=== PATIENT | male | born 1985 | race Caucasian/White ===

== ENCOUNTER 2016-11-23 08:33 | Inpatient (IN) | payer BC ==
[2016-11-23] MEDS ORDERED: Sodium Chloride 0.9% 1,000 ML IV ONE ×2 (08:45)
[2016-11-23] MEDS ORDERED: Lactated Ringers 1,000 ML IV ONE ×2 (08:46→18:00)
[2016-11-23] MEDS ORDERED: HYDROmorphone 2 MG/ML SDV IVPUSH ONE ×3 (08:47→18:04)
[2016-11-23] MEDS ORDERED: Ondansetron 4 MG/2 ML SDV IVPUSH ONE ×2 (08:51→18:00)
[2016-11-23] MEDS ORDERED: Sodium Chloride 0.9% 1,000 ML IV SCH (10:45)
[2016-11-23] MEDS ORDERED: Ondansetron 4 MG/2 ML SDV IV PRN (11:14)
[2016-11-23] MEDS ORDERED: Sodium Chloride 0.9% 10 ML Syringe FLUSH PRN (11:21)
[2016-11-23] MEDS ORDERED: HYDROmorphone 2 MG/ML SDV ONE (11:25)
--- NOTE | 2016-11-23 12:09 | PCM.HP ---
H&P History of Present Illness - General Date of Service: 11/23/16 Admit Problem/Dx: Admission Diagnosis/Problem Admission Diagnosis/Problem Traumatic injury splenic rupture Source of Information: Patient, Old records History Limitations: Reports: No limitations - History of Present Illness Initial Comments - Free Text/Narative: 31 yo wm who presented to the ED this am with a complaint of LUQ abd pain. This was spontaneous. He does not recall any recent fall, auto accident or injury to the abdomen. On CT scan was noted to have an acute splenic rupture with a small amount of blood. He had been out drinking last pm so he does not recall any issues. He is being admitted as there are no beds available in [place] at either [place] or [facility]. He apparently was told in [place] [employer] that he had an enlarged spleen. Epic and [employer] were reviewed and there is no radiologic documentation of this. abdomen Pain Score (Numeric/FACES): 8 - Related Data Allergies/Adverse Reactions: Allergies Allergy/AdvReac Type Severity Reaction Status Date / Time No Known Allergies Allergy Verified 11/23/16 08:51 Home Medications: Home Meds NK [No Known Home Meds] 11/23/16 [History] Past Medical History - Past Health History Medical/Surgical History: Denies Medical/Surgical History Immunologic History: Reports: Other (see below) Other Immunologic History: spleen enlarged 2005- Unknown cause? - Past Surgical History Head Surgeries/Procedures: Reports: None Social & Family History - Family History Family Medical History: Noncontributory Respiratory: Reports: Other (see below) Other Respiratory Family Hisory: father- resp failures, mrsa pneum, tracheostomy in place, : Reports: Other (see below) Other Family History: father- endocrine disorders, Musculoskeletal: Reports: Other (see below) Other Musculoskeletal Family History: father- quadaparesis (muscle weakness), peripheral neuropathy Neurological: Reports: Neuropathy, peripheral, Other (see below) Other Neurological Family History: father- menningitis, headaches, Psychiatric: Reports: Other (see below) Other Psychiatric Family History: father- anxiety related to his failing health, Other Endocrine/Metabolic Family History: father- endocrine disorder Immunologic: Reports: Other (see below) Other Immunologic Family History: father- metabolic, immunity disorders, MSSA septicemia - Tobacco Use Smoking Status *Q: Never Smoker - Alcohol Use Alcohol Use History: Yes Days Per Week of Alcohol Use: 2 Number of Drinks Per Day: 12 Total Drinks Per Week: 24 - Recreational Drug Use Recreational Drug Use: No H&P Review of Systems - Review of Systems: Review Of Systems: See Below General: Reports: no symptoms HEENT: Reports: no symptoms Pulmonary: Reports: no symptoms Cardiovascular: Reports: no symptoms Gastrointestinal: Reports: Abdominal pain Genitourinary: Reports: no symptoms Musculoskeletal: Reports: shoulder pain Skin: Reports: no symptoms Psychiatric: Reports: no symptoms Exam - Exam Exam: See Below - Vital Signs Vital Signs: Last Vital Signs Temp 36.7 C 11/23/16 09:48 Pulse 82 11/23/16 11:14 Resp 20 11/23/16 11:14 BP 118/65 11/23/16 11:14 Pulse Ox 100 11/23/16 11:14 Weight: 79.379 kg - Exam General: alert, oriented, mild distress HEENT: PERRLA, Conjunctiva clear, EOMI, Hearing intact, Mucosa moist & pink Lungs: Clear to auscultation, Normal respiratory effort Cardiovascular: regular rate, regular rhythm Abdomen: normal bowel sounds, soft, tenderness (mild in the luq) - Patient Data Result Diagrams: 11/23/16 09:00 11/23/16 09:00 *Q Meaningful Use (ADM) - VTE *Q VTE Criteria *Q: VTE Pharmacological Contraindications *Q: Risk of Bleeding - Stroke *Q Stroke Criteria *Q: - AMI *Q AMI Criteria *Q: - Problem List (1) Ruptured spleen SNOMED Code(s): 048324862 ICD Code: S36.09XA - OTHER INJURY OF SPLEEN, INITIAL ENCOUNTER Status: Acute Current Visit: Yes Problem List Initiated/Reviewed/Updated: Yes Orders Last 24hrs: Active Orders 24 hr Category Date Time Status Insert Block Catheter [Insert Urinary Catheter] [OM.PC] Care 11/23/16 11:30 Ordered Q24H RED BLOOD CELLS LP [BBK] Stat Lab 11/23/16 10:50 Received Sodium Chloride 0.9% [Normal Saline] 1,000 ml Med 11/23/16 10:45 Active IV ASDIRECTED Sodium Chloride 0.9% [Saline Flush] Med 11/23/16 11:21 Active 10 ml FLUSH ASDIRECTED PRN Peripheral IV Insertion Adult [OM.PC] Routine Oth 11/23/16 11:21 Ordered Medication Orders Lactated Ringer's (Ringers, Lactated) 1,000 mls @ 125 mls/hr IV ASDIRECTED [facility] Sodium Chloride (Normal Saline) 1,000 mls @ 75 mls/hr IV ASDIRECTED [facility] Last Admin: 11/23/16 10:45 Dose: 75 mls/hr Morphine Sulfate (Morphine) 2 mg IVPUSH Q2H PRN PRN Reason: Pain (severe 7-10) Ondansetron HCl (Zofran) 4 mg IV Q6H PRN PRN Reason: Nausea/Vomiting Sodium Chloride (Saline Flush) 10 ml FLUSH ASDIRECTED PRN PRN Reason: Keep Vein Open Assessment/Plan Comment:: stable exam. Plan is to treat non operatively at this time as he is stable. 4 units have been typed and crossed. two large bore iv have been placed as well as a Block. serial lab exam as well as physical exam. . I have asked Anesthesia to eval pt as well in case of emergent surgery.
[2016-11-23] MEDS: Morphine 2 MG/ML Syringe IVPUSH PRN ×2 (15:39→18:01)
[2016-11-23] MEDS ORDERED: Succinylcholine 200 MG/10 ML MDV IV ONE (18:00)
[2016-11-23] MEDS ORDERED: Ketamine 500 mg/10 ML MDV IV ONE (18:00)
[2016-11-23] MEDS ORDERED: HYDROmorphone 2 MG/ML SDV IV ONE (18:00)
[2016-11-23] MEDS ORDERED: SODIUM CHLORIDE 0.9% IV ONE (18:00)
[2016-11-23] MEDS ORDERED: Propofol 200 MG/20 ML SDV IV ONE (18:00)
[2016-11-23] MEDS ORDERED: ceFAZolin 1 GM Vial IV ONE (18:00)
[2016-11-23] MEDS ORDERED: fentaNYL 100 MCG/2 ML SDV IV ONE (18:00)
[2016-11-23] MEDS ORDERED: Midazolam 1 MG/ML 2 ML SDV IV ONE (18:00)
[2016-11-23] MEDS ORDERED: Neostigmine Methylsulfate 1 MG/ML 5 ML Syringe IV ONE (18:00)
[2016-11-23] MEDS ORDERED: Rocuronium 100 MG/10 ML MDV IV ONE (18:00)
[2016-11-23] MEDS ORDERED: PHENYLEPHRINE IV ONE (18:00)
[2016-11-23] MEDS ORDERED: HYDROmorphone 2 MG/ML SDV IVPUSH PRN (18:03)
--- NOTE | 2016-11-23 18:03 | PCM.SURGPN ---
- General Info Date of Service: 11/23/16 POD#: 0 Functional Status: Reports: urinating. Denies: new symptoms - Review of Systems Pulmonary: Reports: no symptoms Cardiovascular: Reports: no symptoms Gastrointestinal: Reports: Abdominal pain (about the same no worse ) - Patient Data Vitals - most recent: Last Vital Signs Temp 36.8 C 11/23/16 17:00 Pulse 69 11/23/16 17:00 Resp 18 11/23/16 17:00 BP 124/69 11/23/16 17:00 Pulse Ox 96 11/23/16 17:00 Weight - most recent: 75.614 kg I&O - last 24 hours: Intake & Output 11/23/16 11/23/16 11/23/16 06:59 14:59 22:59 Intake Total 2415 Output Total 400 2014 Lab Results last 24 hrs: Laboratory Results - last 24 hr 11/23/16 Range/Units 17:00 WBC 6.9 (4.5-12.0) X10-3/uL RBC 3.76 L (4.30-5.75) x10(6)uL Hgb 11.5 (11.5-15.5) g/dL Hct 34.5 (30.0-51.3) % MCV 91.7 (80-96) fL MCH 30.6 (27.7-33.6) pg MCHC 33.4 (32.2-35.4) g/dL RDW 11.6 (11.5-15.5) % Plt Count 252 (125-369) X10(3)uL MPV 6.6 L (7.4-10.4) fL Neut % (Auto) 70.4 (46-82) % Lymph % (Auto) 21.3 (13-37) % [place] % (Auto) 7.5 (4-12) % Eos % (Auto) 0 L (1.0-5.0) % Baso % (Auto) 1 (0-2) % Neut # 4.9 (1.6-8.3) # Lymph # 1.5 (0.6-5.0) # [place] # 0.5 (0.0-1.3) # Eos # 0.0 (0.0-0.8) # Baso # 0.0 (0.0-0.2) # Med Orders - Current: Current Medications Lactated Ringer's (Ringers, Lactated) 1,000 mls @ 125 mls/hr IV ASDIRECTED [facility] Sodium Chloride (Normal Saline) 1,000 mls @ 75 mls/hr IV ASDIRECTED [facility] Last Infusion: 11/23/16 12:40 Dose: 125 mls/hr Morphine Sulfate (Morphine) 2 mg IVPUSH Q2H PRN PRN Reason: Pain (severe 7-10) Last Admin: 11/23/16 15:39 Dose: 2 mg Ondansetron HCl (Zofran) 4 mg IV Q6H PRN PRN Reason: Nausea/Vomiting Sodium Chloride (Saline Flush) 10 ml FLUSH ASDIRECTED PRN PRN Reason: Keep Vein Open Discontinued Medications Hydromorphone HCl (Dilaudid) 2 mg IVPUSH ONETIME ONE Stop: 11/23/16 08:48 Last Admin: 11/23/16 09:13 Dose: 2 mg Hydromorphone HCl (Dilaudid) Confirm Administered Dose 2 mg .ROUTE .STK-MED ONE Stop: 11/23/16 11:26 Last Admin: 11/23/16 11:42 Dose: Not Given Hydromorphone HCl (Dilaudid) 2 mg IVPUSH ONETIME ONE Stop: 11/23/16 11:26 Last Admin: 11/23/16 11:25 Dose: 2 mg Lactated Ringer's (Ringers, Lactated) 1,000 mls @ 999 mls/hr IV BOLUS ONE Stop: 11/23/16 09:46 Last Admin: 11/23/16 09:45 Dose: 999 mls/hr Sodium Chloride (Normal Saline) 1,000 mls @ 999 mls/hr IV .BOLUS ONE Stop: 11/23/16 09:45 Last Admin: 11/23/16 08:45 Dose: 999 mls/hr Ondansetron HCl (Zofran) 4 mg IVPUSH ONETIME ONE Stop: 11/23/16 08:52 Last Admin: 11/23/16 09:10 Dose: 4 mg - Exam General: alert, oriented, cooperative, mild distress Lungs: Clear to auscultation, Normal respiratory effort Cardiovascular: regular rate, regular rhythm Abdomen: bowel sounds present, tenderness (luq no change from this am ) - Problem List & Annotations (1) Ruptured spleen SNOMED Code(s): 860476613 Code(s): S36.09XA - OTHER INJURY OF SPLEEN, INITIAL ENCOUNTER Status: Acute Current Visit: Yes - Problem List Review Problem List Initiated/Reviewed/Updated: Yes - My Orders Last 24 Hours: Active Orders 24 hr Category Date Time Status Insert Block Catheter [Insert Urinary Catheter] [OM.PC] Care 11/23/16 11:30 Ordered Q24H RED BLOOD CELLS LP [BBK] Stat Lab 11/23/16 10:50 Results Sodium Chloride 0.9% [Normal Saline] 1,000 ml Med 11/23/16 10:45 Active IV ASDIRECTED Sodium Chloride 0.9% [Saline Flush] Med 11/23/16 11:21 Active 10 ml FLUSH ASDIRECTED PRN Peripheral IV Insertion Adult [OM.PC] Routine Oth 11/23/16 11:21 Ordered SCD [Sequential Compression Device] [OM.PC] Routine Oth 11/23/16 12:15 Ordered Medication Orders Lactated Ringer's (Ringers, Lactated) 1,000 mls @ 125 mls/hr IV ASDIRECTED [facility] Sodium Chloride (Normal Saline) 1,000 mls @ 75 mls/hr IV ASDIRECTED [facility] Last Infusion: 11/23/16 12:40 Dose: 125 mls/hr Admin: 11/23/16 10:45 Dose: 75 mls/hr Morphine Sulfate (Morphine) 2 mg IVPUSH Q2H PRN PRN Reason: Pain (severe 7-10) Last Admin: 11/23/16 15:39 Dose: 2 mg Ondansetron HCl (Zofran) 4 mg IV Q6H PRN PRN Reason: Nausea/Vomiting Sodium Chloride (Saline Flush) 10 ml FLUSH ASDIRECTED PRN PRN Reason: Keep Vein Open - Assessment Assessment (Free Text/Narrative):: vitals are stable. slight drop in H/H but not marked. - Plan Plan (Free Text/Narrative):: continue npo repeat labs in am
[2016-11-23] MEDS: Lactated Ringers 1,000 ML IV SCH ×2 (19:15→22:33)
[2016-11-23] MEDS ORDERED: Sodium Chloride 0.9% 250 ML IV PRN (19:30)
--- NOTE | 2016-11-23 19:31 | PCM.SN ---
- Free Text/Narrative Note: Hr has gone up since he was seen. Abd is much worse with guarding. To OR. proceed and risks were explained to the pt to include bleeding, infection , injury pancreas and post splenectomy sepsis. asks us to proceed.
[2016-11-23] MEDS ORDERED: Sodium Chloride 0.9% 250 ML IV ONE (20:00)
--- NOTE | 2016-11-23 21:27 | PCM.OPNOTE ---
- General Post-Op/Procedure Note Date of Surgery/Procedure: 11/23/16 Operative Procedure(s): ex lap with splenectomy Findings: injury through the hilum near the splenic artery and vein. approx 3 l of blood in the abdomen. stomach normal lesser sac no pancreatic injury noted. left kidney did not palpate any abnl no hematoma noted. liver nl colon, splenic fluxure normal small intestine normal Pre Op Diagnosis: ruptured spleen Post-Op Diagnosis: Same Anesthesia Technique: General ET tube Primary Surgeon: Parth Pisano Anesthesia Provider: Champ Saleh Pathology: spleen and omentum Fluid Replacement, Intraop: 2,000 (ynes, 2 units of prbc ) Output, Urine Amount: 50 EBL in mLs: 3,000 Complications: None Condition: Good Free Text/Narrative:: Intake & Output 11/23/16 11/23/16 11/23/16 06:59 14:59 22:59 Intake Total 2415 707 Output Total 400 200 Balance 2014 507 see dictation
[2016-11-23] MEDS: Morphine PF 30 MG/30 ML PCA Vial IV SCH (22:31)
--- NOTE | 2016-11-23 23:05 | OR ---
DATE OF OPERATION: 11/23/2016 SURGEON: Parth Pisano MD PROCEDURE PERFORMED: Exploratory laparotomy with splenectomy. PREOPERATIVE DIAGNOSIS: Splenic injury with intraoperative hemorrhage. POSTOPERATIVE DIAGNOSIS: Splenic injury with intraoperative hemorrhage. INDICATIONS FOR PROCEDURE: This is a 31-year-old, white male, who presented to the emergency department today with a complaint of left upper quadrant abdominal pain. Subsequent evaluation revealed a ruptured spleen. He was admitted for observation. He did quite well during and however, this evening, approximately, an hour and half after my last exam, I noted an increasing pain and he was becoming increasingly tachycardic. He was therefore brought emergently to the operating room for exploratory laparotomy. INTRAOPERATIVE FINDINGS: There was an injury through the hilum of the spleen, which was normal in size near the area of the splenic artery and vein. Stomach, liver, small intestine, colon, pancreas, and left kidney were all unremarkable. DESCRIPTION OF OPERATION: After an excellent general anesthetic was administered, the patient was prepped and draped in usual sterile manner. Block had been placed on his admission to the ICU and G-tube was placed. A vertical midline incision was made from the xiphoid process to just below the umbilicus with a #10 scalpel blade. The underlying subcu fat was divided using electrocautery and the midline fascia was also divided. The abdominal cavity was entered. There was a fair amount of dark red blood, immediately welled up, several packs were placed in the left upper quadrant, the bleeding appeared to continue and therefore the spleen was mobilized by bluntly taking down the phrenicosplenic ligament. The spleen was delivered into the midline and grasped, this appeared to control bleeding. The hilum was then clamped and divided and the spleen was passed off the field. The smaller vessels were tied with 0 Vicryl ties. The splenic artery and the splenic vein were tied with both an 0 Vicryl tie and a two suture ligature. We then fully mobilized the stomach and inspected along the greater curve. No active bleeding was noted. LigaSure was used to enter the lesser sac and the pancreas was carefully inspected and noted to be unremarkable as well. We packed off the left upper quadrant. Mobilized the small intestine. Carefully inspecting that and no abnormality was noted. The white line of Toldt was taken down and the colon was rotated to the midline and the splenic flexure, carefully inspected as well as the left colon with the descending colon and this was unremarkable. The spleen was also noted to be unremarkable. Assuring ourselves there were no other injuries, these organs returned to normal anatomic position. The abdominal cavity was then irrigated with several liters of normal saline until clear. The left upper quadrant was inspected once again. The kidney was palpated and noted to be of normal size and diameter, consistent with CT scan findings, there was no evidence of any hematoma. There was no evidence of any active bleeding along the lesser curve. The midline was then closed with a running #2 Prolene. The skin was closed with keon. Needle, sponge, and instrument counts were reported as correct. The patient was taken to recovery room in good condition. /[id number] /MODL
[2016-11-24] MEDS: Lactated Ringers 1,000 ML IV SCH ×3 (05:56→20:45)
[2016-11-24] MEDS ORDERED: LORazepam 2 MG/ML MDV IV SCH (08:45)
--- NOTE | 2016-11-24 08:55 | PCM.SURGPN ---
- General Info Date of Service: 11/24/16 Date of Surgery/Procedure: 11/23/16 POD#: 1 Functional Status: Reports: pain controlled, urinating. Denies: new symptoms - Review of Systems Pulmonary: Reports: no symptoms Cardiovascular: Reports: no symptoms Gastrointestinal: Reports: Abdominal pain. Denies: Flatus - Patient Data Vitals - most recent: Last Vital Signs Temp 36.7 C 11/24/16 08:00 Pulse 108 H 11/24/16 08:00 Resp 20 11/24/16 08:00 BP 138/87 11/24/16 08:00 Pulse Ox 98 11/24/16 08:00 Weight - most recent: 75.614 kg I&O - last 24 hours: Intake & Output 11/23/16 11/24/16 11/24/16 21:59 06:59 14:59 Intake Total Output Total Balance Lab Results last 24 hrs: Laboratory Results - last 24 hr 11/23/16 11/24/16 11/24/16 Range/Units 17:00 06:05 06:05 WBC 6.9 11.5 (4.5-12.0) X10-3/uL RBC 3.76 L 3.46 L (4.30-5.75) x10(6)uL Hgb 11.5 10.4 L (11.5-15.5) g/dL Hct 34.5 31.0 (30.0-51.3) % MCV 91.7 89.6 (80-96) fL MCH 30.6 29.9 (27.7-33.6) pg MCHC 33.4 33.4 (32.2-35.4) g/dL RDW 11.6 13.5 (11.5-15.5) % Plt Count 252 264 (125-369) X10(3)uL MPV 6.6 L 7.1 L (7.4-10.4) fL Neut % (Auto) 70.4 78.1 (46-82) % Lymph % (Auto) 21.3 11.7 L (13-37) % [place] % (Auto) 7.5 9.9 (4-12) % Eos % (Auto) 0 L 0 L (1.0-5.0) % Baso % (Auto) 1 0 (0-2) % Neut # 4.9 9.1 H (1.6-8.3) # Lymph # 1.5 1.3 (0.6-5.0) # [place] # 0.5 1.1 (0.0-1.3) # Eos # 0.0 0.0 (0.0-0.8) # Baso # 0.0 0.0 (0.0-0.2) # Sodium 135 (135-145) mmol/L Potassium 4.7 (3.5-5.3) mmol/L Chloride 105 D (100-110) mmol/L Carbon Dioxide 28 (23-29) mmol/L BUN 21 H (5-20) mg/dL Creatinine 1.0 (0.6-1.3) mg/dL Est Cr Clr Drug Dosing 104.50 mL/min Estimated GFR (MDRD) > 60 (>60) BUN/Creatinine Ratio 21.0 H (9-20) Glucose 114 (80-116) mg/dL Calcium 7.6 L (8.6-10.2) mg/dL Total Bilirubin 1.4 H (0.1-1.3) mg/dL AST 66 H D (5-27) IU/L ALT 44 H (14-26) IU/L Alkaline Phosphatase 53 L (56-112) IU/L Total Protein 5.0 L (6.0-8.0) g/dL Albumin 3.2 L (3.5-5.2) g/dL Globulin 1.8 g/dL Albumin/Globulin Ratio 1.8 Med Orders - Current: Current Medications Lactated Ringer's (Ringers, Lactated) 1,000 mls @ 150 mls/hr IV ASDIRECTED [facility] Last Admin: 11/24/16 05:56 Dose: 150 mls/hr Sodium Chloride (Normal Saline) 1,000 mls @ 75 mls/hr IV ASDIRECTED [facility] Last Infusion: 11/23/16 12:40 Dose: 125 mls/hr Sodium Chloride (Normal Saline) 250 mls @ 100 mls/hr IV ASDIRECTED PRN PRN Reason: blood Albumin Human (Flexbumin 5%) 250 mls @ 250 mls/hr IV ASDIRECTED [facility] Lorazepam (Ativan) 0 mg IV ASDIRECTED [facility]YA PRN Reason: Protocol Morphine Sulfate (Morphine Wedding Coordinator 30 Mg In 30 Ml) 0 mg IV ASDIRECTED NADYA PRN Reason: Protocol Last Admin: 11/23/16 22:31 Dose: 30 mg Ondansetron HCl (Zofran) 4 mg IV Q6H PRN PRN Reason: Nausea/Vomiting Sodium Chloride (Saline Flush) 10 ml FLUSH ASDIRECTED PRN PRN Reason: Keep Vein Open Discontinued Medications Hydromorphone HCl (Dilaudid) 2 mg IVPUSH ONETIME ONE Stop: 11/23/16 08:48 Last Admin: 11/23/16 09:13 Dose: 2 mg Hydromorphone HCl (Dilaudid) Confirm Administered Dose 2 mg .ROUTE .STK-MED ONE Stop: 11/23/16 11:26 Last Admin: 11/23/16 11:42 Dose: Not Given Hydromorphone HCl (Dilaudid) 2 mg IVPUSH ONETIME ONE Stop: 11/23/16 11:26 Last Admin: 11/23/16 11:25 Dose: 2 mg Hydromorphone HCl (Dilaudid) 2 mg IVPUSH Q2H PRN PRN Reason: Pain Hydromorphone HCl (Dilaudid) 1 mg IVPUSH ONETIME ONE Stop: 11/23/16 18:05 Last Admin: 11/23/16 18:17 Dose: 1 mg Lactated Ringer's (Ringers, Lactated) 1,000 mls @ 999 mls/hr IV BOLUS ONE Stop: 11/23/16 09:46 Last Admin: 11/23/16 09:45 Dose: 999 mls/hr Sodium Chloride (Normal Saline) 1,000 mls @ 999 mls/hr IV .BOLUS ONE Stop: 11/23/16 09:45 Last Admin: 11/23/16 08:45 Dose: 999 mls/hr Morphine Sulfate (Morphine) 2 mg IVPUSH Q2H PRN PRN Reason: Pain (severe 7-10) Last Admin: 11/23/16 18:01 Dose: 2 mg Ondansetron HCl (Zofran) 4 mg IVPUSH ONETIME ONE Stop: 11/23/16 08:52 Last Admin: 11/23/16 09:10 Dose: 4 mg - Exam Wound/Incisions: dressing dry and intact General: alert, oriented, cooperative, no acute distress Lungs: Clear to auscultation, Normal respiratory effort Cardiovascular: regular rate, regular rhythm Abdomen: abnormal bowel sounds (decrease ). No: rebound, guarding Skin: warm, dry, intact Neurological: no new focal deficit - Problem List & Annotations (1) Ruptured spleen SNOMED Code(s): 677367508 Code(s): S36.09XA - OTHER INJURY OF SPLEEN, INITIAL ENCOUNTER Status: Resolved Current Visit: Yes Annotation/Comment:: splenectomy (2) S/P splenectomy SNOMED Code(s): 563426855, 148957977 Code(s): Z90.81 - ACQUIRED ABSENCE OF SPLEEN Status: Acute Current Visit : Yes - Problem List Review Problem List Initiated/Reviewed/Updated: Yes - My Orders Last 24 Hours: Active Orders 24 hr Category Date Time Status Assess Neurological Status [RC] ASDIRECTED Care 11/24/16 08:44 Ordered CIWAA Assessment [RC] Q4H Care 11/24/16 08:44 Ordered IS (RT) [RT Incentive Spirometry] [RC] Q2HWA Care 11/23/16 21:28 Active Insert Kelly Catheter [Insert Urinary Catheter] [OM.PC] Care 11/23/16 11:30 Ordered Q24H NG [Gastrointestinal Tube Mgmt] [RC] QSHIFT Care 11/23/16 21:28 Active Notify Provider [RC] PRN Care 11/24/16 08:44 Ordered Verify Patient Consent Obtain [RC] ASDIRECTED Care 11/23/16 19:31 Active AMYLASE [CHEM] AM Lab 11/25/16 05:11 Ordered CBC WITH AUTO DIFF [HEME] AM Lab 11/25/16 05:11 Ordered RED BLOOD CELLS LP [BBK] Stat Lab 11/23/16 10:50 Results Albumin Human [Flexbumin 5%] 250 ml Med 11/24/16 09:00 Ordered IV ASDIRECTED LORazepam [Ativan] Med 11/24/16 08:45 Ordered See Protocol IV ASDIRECTED Morphine PF [Morphine CHEMICAL LABORATORY CHIEF 30 MG in 30 ML] Med 11/23/16 21:45 Active 0 mg IV ASDIRECTED Sodium Chloride 0.9% [Normal Saline] 1,000 ml Med 11/23/16 10:45 Active IV ASDIRECTED Sodium Chloride 0.9% [Normal Saline] 250 ml Med 11/23/16 19:30 Active IV ASDIRECTED Sodium Chloride 0.9% [Saline Flush] Med 11/23/16 11:21 Active 10 ml FLUSH ASDIRECTED PRN Peripheral IV Insertion Adult [OM.PC] Routine Oth 11/23/16 11:21 Ordered SCD [Sequential Compression Device] [OM.PC] Routine Oth 11/23/16 12:15 Ordered Transfuse PRBC [Transfuse Red Blood Cells] [COMM] Stat Oth 11/23/16 19:28 Ordered Medication Orders Lactated Ringer's (Ringers, Lactated) 1,000 mls @ 150 mls/hr IV ASDIRECTED [facility] Last Admin: 11/24/16 05:56 Dose: 150 mls/hr Infusion: 11/24/16 05:56 Dose: 125 mls/hr Admin: 11/23/16 22:33 Dose: 125 mls/hr Infusion: 11/23/16 22:33 Dose: 125 mls/hr Admin: 11/23/16 19:15 Dose: 125 mls/hr Sodium Chloride (Normal Saline) 1,000 mls @ 75 mls/hr IV ASDIRECTED [facility] Last Infusion: 11/23/16 12:40 Dose: 125 mls/hr Admin: 11/23/16 10:45 Dose: 75 mls/hr Sodium Chloride (Normal Saline) 250 mls @ 100 mls/hr IV ASDIRECTED PRN PRN Reason: blood Albumin Human (Flexbumin 5%) 250 mls @ 250 mls/hr IV ASDIRECTED [facility] Lorazepam (Ativan) 0 mg IV ASDIRECTED NADYA PRN Reason: Protocol Morphine Sulfate (Morphine Wedding Coordinator 30 Mg In 30 Ml) 0 mg IV ASDIRECTED NADYA PRN Reason: Protocol Last Admin: 11/23/16 22:31 Dose: 30 mg Ondansetron HCl (Zofran) 4 mg IV Q6H PRN PRN Reason: Nausea/Vomiting Sodium Chloride (Saline Flush) 10 ml FLUSH ASDIRECTED PRN PRN Reason: Keep Vein Open - Assessment Assessment (Free Text/Narrative):: exam is stable still a little tachycardic H/H is good Urine output is good - Plan Plan (Free Text/Narrative):: bolus iv fluid recheck labs in am up in chair continue ngt and kelly
[2016-11-24] MEDS: Morphine PF 30 MG/30 ML PCA Vial IV SCH ×2 (09:08→16:21)
--- NOTE | 2016-11-24 17:12 | PCM.SN ---
- Free Text/Narrative Note: good pain control hr down from this am. good uo lungs cta heart rrr abd soft nontender. assess improved exam continue current rx. anticipate d/c of Mckayla, in am
[2016-11-24] MEDS ORDERED: Albuterol/Ipratropium 3.0-0.5 MG/3 ML Neb Soln NEB PRN (22:24)
[2016-11-25] MEDS: Morphine PF 30 MG/30 ML PCA Vial IV SCH ×3 (00:11→16:42)
[2016-11-25] MEDS: Lactated Ringers 1,000 ML IV SCH ×2 (04:15→13:46)
--- NOTE | 2016-11-25 08:38 | PCM.SURGPN ---
- General Info Date of Service: 11/25/16 POD#: 2 Functional Status: Reports: pain controlled, ambulating, urinating. Denies: new symptoms - Review of Systems Pulmonary: Reports: cough, other (some plugs last pm is coughing and breathing better. nebs started last pm ) Cardiovascular: Reports: no symptoms Gastrointestinal: Reports: Abdominal pain. Denies: Flatus - Patient Data Vitals - most recent: Last Vital Signs Temp 38.1 C 11/25/16 08:00 Pulse 106 H 11/25/16 08:00 Resp 16 11/25/16 08:00 BP 134/74 11/25/16 08:00 Pulse Ox 94 L 11/25/16 08:00 Weight - most recent: 75.614 kg I&O - last 24 hours: Intake & Output 11/24/16 11/25/16 11/25/16 22:59 06:59 14:59 Intake Total 1290 1141 Output Total 775 800 Balance 515 341 Lab Results last 24 hrs: Laboratory Results - last 24 hr 11/25/16 11/25/16 Range/Units 06:30 06:30 WBC 12.4 H (4.5-12.0) X10-3/uL RBC 2.71 L (4.30-5.75) x10(6)uL Hgb 8.4 L (11.5-15.5) g/dL Hct 24.4 L (30.0-51.3) % MCV 90.1 (80-96) fL MCH 31.1 (27.7-33.6) pg MCHC 34.5 (32.2-35.4) g/dL RDW 13.0 (11.5-15.5) % Plt Count 248 (125-369) X10(3)uL MPV 7.6 (7.4-10.4) fL Neut % (Auto) 78.7 (46-82) % Lymph % (Auto) 10.7 L (13-37) % Moody % (Auto) 10.1 (4-12) % Eos % (Auto) 0 L (1.0-5.0) % Baso % (Auto) 0 (0-2) % Neut # 9.8 H (1.6-8.3) # Lymph # 1.3 (0.6-5.0) # Moody # 1.3 (0.0-1.3) # Eos # 0.0 (0.0-0.8) # Baso # 0.0 (0.0-0.2) # Amylase 70 (28-100) U/L Med Orders - Current: Current Medications Albuterol/Ipratropium (Duoneb 3.0-0.5 Mg/3 Ml) 3 ml NEB Q4H PRN PRN Reason: Dyspnea Last Admin: 11/24/16 22:39 Dose: 3 ml Lactated Ringer's (Ringers, Lactated) 1,000 mls @ 75 mls/hr IV ASDIRECTED [facility] Last Admin: 11/25/16 04:15 Dose: 125 mls/hr Sodium Chloride (Normal Saline) 250 mls @ 100 mls/hr IV ASDIRECTED PRN PRN Reason: blood Lorazepam (Ativan) 0 mg IV ASDIRECTED [facility] PRN Reason: Protocol Morphine Sulfate (Morphine Events Manager 30 Mg In 30 Ml) 0 mg IV ASDIRECTED [facility] PRN Reason: Protocol Last Admin: 11/25/16 00:11 Dose: 30 mg Ondansetron HCl (Zofran) 4 mg IV Q6H PRN PRN Reason: Nausea/Vomiting Sodium Chloride (Saline Flush) 10 ml FLUSH ASDIRECTED PRN PRN Reason: Keep Vein Open Discontinued Medications Hydromorphone HCl (Dilaudid) 2 mg IVPUSH ONETIME ONE Stop: 11/23/16 08:48 Last Admin: 11/23/16 09:13 Dose: 2 mg Hydromorphone HCl (Dilaudid) Confirm Administered Dose 2 mg .ROUTE .STK-MED ONE Stop: 11/23/16 11:26 Last Admin: 11/23/16 11:42 Dose: Not Given Hydromorphone HCl (Dilaudid) 2 mg IVPUSH ONETIME ONE Stop: 11/23/16 11:26 Last Admin: 11/23/16 11:25 Dose: 2 mg Hydromorphone HCl (Dilaudid) 2 mg IVPUSH Q2H PRN PRN Reason: Pain Hydromorphone HCl (Dilaudid) 1 mg IVPUSH ONETIME ONE Stop: 11/23/16 18:05 Last Admin: 11/23/16 18:17 Dose: 1 mg Lactated Ringer's (Ringers, Lactated) 1,000 mls @ 999 mls/hr IV BOLUS ONE Stop: 11/23/16 09:46 Last Admin: 11/23/16 09:45 Dose: 999 mls/hr Sodium Chloride (Normal Saline) 1,000 mls @ 999 mls/hr IV .BOLUS ONE Stop: 11/23/16 09:45 Last Admin: 11/23/16 08:45 Dose: 999 mls/hr Sodium Chloride (Normal Saline) 1,000 mls @ 75 mls/hr IV ASDIRECTED [facility] Last Infusion: 11/23/16 12:40 Dose: 125 mls/hr Albumin Human (Flexbumin 5%) 250 mls @ 250 mls/hr IV ONETIME ONE Stop: 11/24/16 09:59 Last Admin: 11/24/16 09:35 Dose: 250 mls/hr Morphine Sulfate (Morphine) 2 mg IVPUSH Q2H PRN PRN Reason: Pain (severe 7-10) Last Admin: 11/23/16 18:01 Dose: 2 mg Ondansetron HCl (Zofran) 4 mg IVPUSH ONETIME ONE Stop: 11/23/16 08:52 Last Admin: 11/23/16 09:10 Dose: 4 mg - Exam Wound/Incisions: dressing dry and intact General: alert, oriented, cooperative, no acute distress Lungs: Clear to auscultation, Normal respiratory effort Cardiovascular: regular rate, regular rhythm Abdomen: bowel sounds present, soft, no distension - Problem List & Annotations (1) Ruptured spleen SNOMED Code(s): 249576561 Code(s): S36.09XA - OTHER INJURY OF SPLEEN, INITIAL ENCOUNTER Status: Resolved Current Visit: Yes Annotation/Comment:: splenectomy (2) S/P splenectomy SNOMED Code(s): 996953143, 227502970 Code(s): Z90.81 - ACQUIRED ABSENCE OF SPLEEN Status: Acute Current Visit : Yes - Problem List Review Problem List Initiated/Reviewed/Updated: Yes - My Orders Last 24 Hours: Active Orders 24 hr Category Date Time Status Patient Status Manage Transfer [TRANSFER] Routine ADT 11/25/16 08:33 Ordered Ambulate [RC] ASDIRECTED Care 11/25/16 08:32 Active Assess Neurological Status [RC] ASDIRECTED Care 11/24/16 08:44 Active CIWAA Assessment [RC] 04,08,12,16,20,00 Care 11/24/16 08:44 Active DC Kelly Catheter [Urinary Catheter Removal] [RC] Per Care 11/25/16 08:30 Active Unit Routine Notify Provider [RC] PRN Care 11/24/16 08:44 Active RT Aerosol Therapy [RC] ASDIRECTED Care 11/24/16 22:24 Active Up to Chair [RC] TID Care 11/24/16 08:56 Active Consult to Respiratory Therapy [Respiratory Care Assess Cons 11/25/16 08:31 Active and Treatment] [CONS] Routine CBC WITH AUTO DIFF [HEME] AM Lab 11/26/16 05:11 Ordered Albuterol/Ipratropium [DuoNeb 3.0-0.5 MG/3 ML] Med 11/24/16 22:24 Active 3 ml NEB Q4H PRN LORazepam [Ativan] Med 11/24/16 08:45 Active See Protocol IV ASDIRECTED NG [Nasogastric Orogastric Tube Removal] [OM.PC] Oth 11/25/16 08:30 Ordered Routine Medication Orders Albuterol/Ipratropium (Duoneb 3.0-0.5 Mg/3 Ml) 3 ml NEB Q4H PRN PRN Reason: Dyspnea Last Admin: 11/24/16 22:39 Dose: 3 ml Lactated Ringer's (Ringers, Lactated) 1,000 mls @ 75 mls/hr IV ASDIRECTED [facility] Last Admin: 11/25/16 04:15 Dose: 125 mls/hr Infusion: 11/25/16 04:15 Dose: 150 mls/hr Admin: 11/24/16 20:45 Dose: 150 mls/hr Infusion: 11/24/16 20:26 Dose: 150 mls/hr Admin: 11/24/16 13:45 Dose: 150 mls/hr Infusion: 11/24/16 12:37 Dose: 150 mls/hr Admin: 11/24/16 05:56 Dose: 150 mls/hr Infusion: 11/24/16 05:56 Dose: 125 mls/hr Admin: 11/23/16 22:33 Dose: 125 mls/hr Infusion: 11/23/16 22:33 Dose: 125 mls/hr Admin: 11/23/16 19:15 Dose: 125 mls/hr Sodium Chloride (Normal Saline) 250 mls @ 100 mls/hr IV ASDIRECTED PRN PRN Reason: blood Lorazepam (Ativan) 0 mg IV ASDIRECTED [facility] PRN Reason: Protocol Morphine Sulfate (Morphine Events Manager 30 Mg In 30 Ml) 0 mg IV ASDIRECTED [facility] PRN Reason: Protocol Last Admin: 11/25/16 00:11 Dose: 30 mg Admin: 11/24/16 16:21 Dose: 30 mg Admin: 11/24/16 09:08 Dose: 30 mg Admin: 11/23/16 22:31 Dose: 30 mg Ondansetron HCl (Zofran) 4 mg IV Q6H PRN PRN Reason: Nausea/Vomiting Sodium Chloride (Saline Flush) 10 ml FLUSH ASDIRECTED PRN PRN Reason: Keep Vein Open - Assessment Assessment (Free Text/Narrative):: POD#2 doing well h/h is down a little mobilizing fluid min NGT out put Pul toilet appears to be working - Plan Plan (Free Text/Narrative):: kelly and ngt out transfer to [facility] decrease ivf rate increase ambulation RT consult to aid in Pul toilet.
--- NOTE | 2016-11-25 14:46 | ER ---
DATE SEEN: 11/23/2016 TIME SEEN: The patient was seen at 0830 hours. CHIEF COMPLAINT: Abdominal pain. HISTORY OF PRESENT ILLNESS: This 31-year-old comes in with history of drinking excessive amount of alcohol last night. He has 8/10 pain. Feels lightheaded, and drank so much that he had 8 to 9 beers last night and notes he drinks a case a week. He is known to have fireballs, (a combination of 10 different drinks in 1 glass) last night. The patient denies previous surgery. He does not smoke. No illicit drugs. He denies marijuana. He denies vomiting, but moderate abdominal discomfort. He denies fever and has right flank pain, right anterior abdominal discomfort. No difficulty passing urine. No vomiting, diarrhea, constipation, blood in the stool, hematochezia, or reflux. No cardiorespiratory symptoms and no musculoskeletal symptoms. FAMILY HISTORY: His father does not drink alcohol. Mother is negative. Family history is otherwise negative. REVIEW OF SYSTEMS: Otherwise negative. PHYSICAL EXAMINATION: VITAL SIGNS: Blood pressure of 122/76, heart rate 81, respirations 22, temperature is 98.2. GENERAL: Alert. Mild halitosis. HEENT: PERRLA intact. Pharynx without abnormality. Scalp without ecchymosis, swelling, or tenderness. Pharynx had disruptive teeth. No facial injury. NECK: Without tenderness. No anterior neck discomfort. LUNGS: Clear to auscultation without rales, rhonchi, or wheezes. HEART: S1, S2. No murmur. Regular rate and rhythm. No S3 or S4. ABDOMEN: Mild voluntary guarding. Right upper quadrant discomfort, but mostly right flank discomfort. Mild left upper quadrant discomfort and left lower quadrant discomfort. Bowel sounds are present. Moderate right CVA discomfort. WORKING DIAGNOSIS: Rule out stone. CT was performed. The patient had demonstrated splenic hemorrhage. His status was discussed with Dr. Pisano. Initially, he felt that perhaps he might need a blood bank and other issues and would preclude his staying here in [place]; however, no beds are available in [facility], or [place]. Consequently, Dr. Pisano reconsidered. DIAGNOSES: 1. Splenic rupture. 2. Intraabdominal fluid demonstrated. 3. Small renal collecting system stones bilaterally. 4. Small gallstone. LABORATORY FINDINGS: White count 9600 without left shift. PMNs, platelets 299,000, hemoglobin 13.9, calcium 8.4, AST 56, ALT 46. /[id number] 1612 2329 LS/MODL
[2016-11-26] MEDS: Morphine PF 30 MG/30 ML PCA Vial IV SCH ×3 (01:00→22:28)
[2016-11-26] MEDS: Lactated Ringers 1,000 ML IV SCH ×2 (03:15→16:50)
--- NOTE | 2016-11-26 08:01 | PCM.SURGPN ---
- General Info Date of Service: 11/26/16 POD#: 3 Functional Status: Reports: pain controlled, ambulating, urinating. Denies: new symptoms - Review of Systems Pulmonary: Reports: no symptoms Cardiovascular: Reports: no symptoms Gastrointestinal: Reports: Flatus - Patient Data Vitals - most recent: Last Vital Signs Temp 36.8 C 11/26/16 05:35 Pulse 95 11/26/16 05:35 Resp 20 11/26/16 05:35 BP 127/85 11/26/16 05:35 Pulse Ox 96 11/26/16 05:35 Weight - most recent: 75.614 kg I&O - last 24 hours: Intake & Output 11/25/16 11/26/16 11/26/16 22:59 06:59 14:59 Intake Total 858 643 Output Total 1075 1850 Balance -217 -1207 Lab Results last 24 hrs: Laboratory Results - last 24 hr 11/26/16 Range/Units 06:30 WBC 10.2 (4.5-12.0) X10-3/uL RBC 2.78 L (4.30-5.75) x10(6)uL Hgb 8.4 L (11.5-15.5) g/dL Hct 25.0 L (30.0-51.3) % MCV 89.6 (80-96) fL MCH 30.2 (27.7-33.6) pg MCHC 33.7 (32.2-35.4) g/dL RDW 12.9 (11.5-15.5) % Plt Count 316 (125-369) X10(3)uL MPV 7.3 L (7.4-10.4) fL Neut % (Auto) 72.9 (46-82) % Lymph % (Auto) 14.5 (13-37) % Lewis % (Auto) 9.9 (4-12) % Eos % (Auto) 2 (1.0-5.0) % Baso % (Auto) 1 (0-2) % Neut # 7.4 (1.6-8.3) # Lymph # 1.5 (0.6-5.0) # Lewis # 1.0 (0.0-1.3) # Eos # 0.2 (0.0-0.8) # Baso # 0.1 (0.0-0.2) # Med Orders - Current: Current Medications Albuterol/Ipratropium (Duoneb 3.0-0.5 Mg/3 Ml) 3 ml NEB Q4H PRN PRN Reason: Dyspnea Last Admin: 11/24/16 22:39 Dose: 3 ml Lactated Ringer's (Ringers, Lactated) 1,000 mls @ 75 mls/hr IV ASDIRECTED [facility] Last Admin: 11/26/16 03:15 Dose: 75 mls/hr Sodium Chloride (Normal Saline) 250 mls @ 100 mls/hr IV ASDIRECTED PRN PRN Reason: blood Lorazepam (Ativan) 0 mg IV ASDIRECTED [facility] PRN Reason: Protocol Morphine Sulfate (Morphine Insole Tape Stitcher Uco 30 Mg In 30 Ml) 0 mg IV ASDIRECTED [facility] PRN Reason: Protocol Last Admin: 11/26/16 01:00 Dose: 30 mg Ondansetron HCl (Zofran) 4 mg IV Q6H PRN PRN Reason: Nausea/Vomiting Sodium Chloride (Saline Flush) 10 ml FLUSH ASDIRECTED PRN PRN Reason: Keep Vein Open Discontinued Medications Cefazolin Sodium (Ancef) 1 gm IV .STK-MED ONE Stop: 11/23/16 18:01 Fentanyl (Sublimaze) 100 mcg IV .STK-MED ONE Stop: 11/23/16 18:01 Glycopyrrolate (Robinul) 0.8 mg IVPUSH .STK-MED ONE Stop: 11/23/16 18:01 Hydromorphone HCl (Dilaudid) 2 mg IVPUSH ONETIME ONE Stop: 11/23/16 08:48 Last Admin: 11/23/16 09:13 Dose: 2 mg Hydromorphone HCl (Dilaudid) Confirm Administered Dose 2 mg .ROUTE .STK-MED ONE Stop: 11/23/16 11:26 Last Admin: 11/23/16 11:42 Dose: Not Given Hydromorphone HCl (Dilaudid) 2 mg IVPUSH ONETIME ONE Stop: 11/23/16 11:26 Last Admin: 11/23/16 11:25 Dose: 2 mg Hydromorphone HCl (Dilaudid) 2 mg IVPUSH Q2H PRN PRN Reason: Pain Hydromorphone HCl (Dilaudid) 1 mg IVPUSH ONETIME ONE Stop: 11/23/16 18:05 Last Admin: 11/23/16 18:17 Dose: 1 mg Hydromorphone HCl (Dilaudid) 2 mg IV .STK-MED ONE Stop: 11/23/16 18:01 Lactated Ringer's (Ringers, Lactated) 1,000 mls @ 999 mls/hr IV BOLUS ONE Stop: 11/23/16 09:46 Last Admin: 11/23/16 09:45 Dose: 999 mls/hr Sodium Chloride (Normal Saline) 1,000 mls @ 999 mls/hr IV .BOLUS ONE Stop: 11/23/16 09:45 Last Admin: 11/23/16 08:45 Dose: 999 mls/hr Sodium Chloride (Normal Saline) 1,000 mls @ 75 mls/hr IV ASDIRECTED [facility] Last Infusion: 11/23/16 12:40 Dose: 125 mls/hr Albumin Human (Flexbumin 5%) 250 mls @ 250 mls/hr IV ONETIME ONE Stop: 11/24/16 09:59 Last Admin: 11/24/16 09:35 Dose: 250 mls/hr Phenylephrine HCl 1 mg/ Sodium (Chloride) 500.1 mls @ as directed IV .STK-MED ONE Stop: 11/23/16 18:01 Lactated Ringer's (Ringers, Lactated) 1,000 mls @ as directed IV .STK-MED ONE Stop: 11/23/16 18:01 Sodium Chloride (Normal Saline) 250 mls @ as directed IV .STK-MED ONE Stop: 11/23/16 20:01 Ketamine HCl (Ketalar) 60 mg IV .STK-MED ONE Stop: 11/23/16 18:01 Midazolam HCl (Versed 1 Mg/Ml) 2 mg IV .STK-MED ONE Stop: 11/23/16 18:01 Morphine Sulfate (Morphine) 2 mg IVPUSH Q2H PRN PRN Reason: Pain (severe 7-10) Last Admin: 11/23/16 18:01 Dose: 2 mg Neostigmine Methylsulfate (Neostigmine) 5 mg IV .STK-MED ONE Stop: 11/23/16 18:01 Ondansetron HCl (Zofran) 4 mg IVPUSH ONETIME ONE Stop: 11/23/16 08:52 Last Admin: 11/23/16 09:10 Dose: 4 mg Ondansetron HCl (Zofran) 4 mg IVPUSH .STK-MED ONE Stop: 11/23/16 18:01 Propofol (Diprivan 20 Ml) 80 mg IV .STK-MED ONE Stop: 11/23/16 18:01 Rocuronium [place] (Zemuron) 50 mg IV .STK-MED ONE Stop: 11/23/16 18:01 Succinylcholine Chloride (Quelicin) 160 mg IV .STK-MED ONE Stop: 11/23/16 18:01 - Exam Wound/Incisions: healing well, dressing dry and intact General: alert, oriented, cooperative, no acute distress Lungs: Clear to auscultation, Normal respiratory effort Cardiovascular: regular rate, regular rhythm Abdomen: bowel sounds present, soft, no distension, tenderness (along incision ) Physical Findings Comment:: continues to mobilize fluids h/h slight drop but is tolerating - Problem List & Annotations (1) Laceration SNOMED Code(s): 267038153 Code(s): T14.8 - OTHER INJURY OF UNSPECIFIED BODY REGION Status: Acute Current Visit: No (2) Ruptured spleen SNOMED Code(s): 104135439 Status: Resolved Current Visit: Yes Annotation/Comment:: splenectomy - Problem List Review Problem List Initiated/Reviewed/Updated: Yes - My Orders Last 24 Hours: Active Orders 24 hr Category Date Time Status Ambulate [RC] ASDIRECTED Care 11/25/16 08:32 Active Consult to Respiratory Therapy [Respiratory Care Assess Cons 11/25/16 08:31 Active and Treatment] [CONS] Routine NG [Nasogastric Orogastric Tube Removal] [OM.PC] Oth 11/25/16 08:30 Ordered Routine Medication Orders Albuterol/Ipratropium (Duoneb 3.0-0.5 Mg/3 Ml) 3 ml NEB Q4H PRN PRN Reason: Dyspnea Last Admin: 11/24/16 22:39 Dose: 3 ml Lactated Ringer's (Ringers, Lactated) 1,000 mls @ 75 mls/hr IV ASDIRECTED [facility] Last Admin: 11/26/16 03:15 Dose: 75 mls/hr Infusion: 11/26/16 03:15 Dose: 75 mls/hr Admin: 11/25/16 13:46 Dose: 75 mls/hr Infusion: 11/25/16 12:15 Dose: 125 mls/hr Admin: 11/25/16 04:15 Dose: 125 mls/hr Infusion: 11/25/16 04:15 Dose: 150 mls/hr Admin: 11/24/16 20:45 Dose: 150 mls/hr Infusion: 11/24/16 20:26 Dose: 150 mls/hr Admin: 11/24/16 13:45 Dose: 150 mls/hr Infusion: 11/24/16 12:37 Dose: 150 mls/hr Admin: 11/24/16 05:56 Dose: 150 mls/hr Infusion: 11/24/16 05:56 Dose: 125 mls/hr Admin: 11/23/16 22:33 Dose: 125 mls/hr Infusion: 11/23/16 22:33 Dose: 125 mls/hr Admin: 11/23/16 19:15 Dose: 125 mls/hr Sodium Chloride (Normal Saline) 250 mls @ 100 mls/hr IV ASDIRECTED PRN PRN Reason: blood Lorazepam (Ativan) 0 mg IV ASDIRECTED [facility] PRN Reason: Protocol Morphine Sulfate (Morphine Insole Tape Stitcher Uco 30 Mg In 30 Ml) 0 mg IV ASDIRECTED [facility] PRN Reason: Protocol Last Admin: 11/26/16 01:00 Dose: 30 mg Admin: 11/25/16 16:42 Dose: 30 mg Admin: 11/25/16 08:53 Dose: 30 mg Admin: 11/25/16 00:11 Dose: 30 mg Admin: 11/24/16 16:21 Dose: 30 mg Admin: 11/24/16 09:08 Dose: 30 mg Admin: 11/23/16 22:31 Dose: 30 mg Ondansetron HCl (Zofran) 4 mg IV Q6H PRN PRN Reason: Nausea/Vomiting Sodium Chloride (Saline Flush) 10 ml FLUSH ASDIRECTED PRN PRN Reason: Keep Vein Open - Assessment Assessment (Free Text/Narrative):: bowel function has returned. - Plan Plan (Free Text/Narrative):: clear liquid diet
[2016-11-27] MEDS: Lactated Ringers 1,000 ML IV SCH (06:00)
[2016-11-27] MEDS ORDERED: Acetaminophen/HYDROcodone 325-5 MG Tab PO PRN (09:08)
[2016-11-27] MEDS: Acetaminophen/HYDROcodone 325-5 MG Tab PO PRN ×3 (10:09→21:20)
--- NOTE | 2016-11-27 10:28 | PCM.SURGPN ---
- General Info Date of Service: 11/27/16 Functional Status: Reports: ambulating, urinating, other - Review of Systems Gastrointestinal: Reports: Abdominal pain (after eating this am feels gassy. he did have a bowel movment this am small + flatus ) - Patient Data Vitals - most recent: Last Vital Signs Temp 36.5 C 11/27/16 08:00 Pulse 86 11/27/16 05:00 Resp 18 11/27/16 08:00 BP 130/97 H 11/27/16 08:00 Pulse Ox 99 11/27/16 08:00 Weight - most recent: 75.614 kg I&O - last 24 hours: Intake & Output 11/26/16 11/27/16 11/27/16 22:59 06:59 14:59 Intake Total 1098 1086 Output Total 3850 1400 500 Balance -2752 -314 -500 Med Orders - Current: Current Medications Acetaminophen/Hydrocodone Bitart ([place] 325-5 Mg) 2 tab PO Q4H PRN PRN Reason: Pain Last Admin: 11/27/16 10:09 Dose: 2 tab Albuterol/Ipratropium (Duoneb 3.0-0.5 Mg/3 Ml) 3 ml NEB Q4H PRN PRN Reason: Dyspnea Last Admin: 11/24/16 22:39 Dose: 3 ml Sodium Chloride (Normal Saline) 250 mls @ 100 mls/hr IV ASDIRECTED PRN PRN Reason: blood Lorazepam (Ativan) 0 mg IV ASDIRECTED [facility] PRN Reason: Protocol Sodium Chloride (Saline Flush) 10 ml FLUSH ASDIRECTED PRN PRN Reason: Keep Vein Open Discontinued Medications Acetaminophen/Hydrocodone Bitart ([place] 325-5 Mg) 1 tab PO Q4H PRN PRN Reason: Pain Cefazolin Sodium (Ancef) 1 gm IV .STK-MED ONE Stop: 11/23/16 18:01 Fentanyl (Sublimaze) 100 mcg IV .STK-MED ONE Stop: 11/23/16 18:01 Glycopyrrolate (Robinul) 0.8 mg IVPUSH .STK-MED ONE Stop: 11/23/16 18:01 Hydromorphone HCl (Dilaudid) 2 mg IVPUSH ONETIME ONE Stop: 11/23/16 08:48 Last Admin: 11/23/16 09:13 Dose: 2 mg Hydromorphone HCl (Dilaudid) Confirm Administered Dose 2 mg .ROUTE .STK-MED ONE Stop: 11/23/16 11:26 Last Admin: 11/23/16 11:42 Dose: Not Given Hydromorphone HCl (Dilaudid) 2 mg IVPUSH ONETIME ONE Stop: 11/23/16 11:26 Last Admin: 11/23/16 11:25 Dose: 2 mg Hydromorphone HCl (Dilaudid) 2 mg IVPUSH Q2H PRN PRN Reason: Pain Hydromorphone HCl (Dilaudid) 1 mg IVPUSH ONETIME ONE Stop: 11/23/16 18:05 Last Admin: 11/23/16 18:17 Dose: 1 mg Hydromorphone HCl (Dilaudid) 2 mg IV .STK-MED ONE Stop: 11/23/16 18:01 Lactated Ringer's (Ringers, Lactated) 1,000 mls @ 999 mls/hr IV BOLUS ONE Stop: 11/23/16 09:46 Last Admin: 11/23/16 09:45 Dose: 999 mls/hr Sodium Chloride (Normal Saline) 1,000 mls @ 999 mls/hr IV .BOLUS ONE Stop: 11/23/16 09:45 Last Admin: 11/23/16 08:45 Dose: 999 mls/hr Lactated Ringer's (Ringers, Lactated) 1,000 mls @ 75 mls/hr IV ASDIRECTED [facility] Last Admin: 11/27/16 06:00 Dose: 75 mls/hr Sodium Chloride (Normal Saline) 1,000 mls @ 75 mls/hr IV ASDIRECTED [facility] Last Infusion: 11/23/16 12:40 Dose: 125 mls/hr Albumin Human (Flexbumin 5%) 250 mls @ 250 mls/hr IV ONETIME ONE Stop: 11/24/16 09:59 Last Admin: 11/24/16 09:35 Dose: 250 mls/hr Phenylephrine HCl 1 mg/ Sodium (Chloride) 500.1 mls @ as directed IV .STK-MED ONE Stop: 11/23/16 18:01 Lactated Ringer's (Ringers, Lactated) 1,000 mls @ as directed IV .STK-MED ONE Stop: 11/23/16 18:01 Sodium Chloride (Normal Saline) 250 mls @ as directed IV .STK-MED ONE Stop: 11/23/16 20:01 Ketamine HCl (Ketalar) 60 mg IV .STK-MED ONE Stop: 11/23/16 18:01 Midazolam HCl (Versed 1 Mg/Ml) 2 mg IV .STK-MED ONE Stop: 11/23/16 18:01 Morphine Sulfate (Morphine) 2 mg IVPUSH Q2H PRN PRN Reason: Pain (severe 7-10) Last Admin: 11/23/16 18:01 Dose: 2 mg Morphine Sulfate (Morphine Skid Machine Operator 30 Mg In 30 Ml) 0 mg IV ASDIRECTED [facility] PRN Reason: Protocol Last Admin: 11/26/16 22:28 Dose: 30 mg Neostigmine Methylsulfate (Neostigmine) 5 mg IV .STK-MED ONE Stop: 11/23/16 18:01 Ondansetron HCl (Zofran) 4 mg IVPUSH ONETIME ONE Stop: 11/23/16 08:52 Last Admin: 11/23/16 09:10 Dose: 4 mg Ondansetron HCl (Zofran) 4 mg IV Q6H PRN PRN Reason: Nausea/Vomiting Ondansetron HCl (Zofran) 4 mg IVPUSH .STK-MED ONE Stop: 11/23/16 18:01 Propofol (Diprivan 20 Ml) 80 mg IV .STK-MED ONE Stop: 11/23/16 18:01 Rocuronium [place] (Zemuron) 50 mg IV .STK-MED ONE Stop: 11/23/16 18:01 Succinylcholine Chloride (Quelicin) 160 mg IV .STK-MED ONE Stop: 11/23/16 18:01 - Exam Wound/Incisions: dressing dry and intact General: alert, oriented Lungs: Clear to auscultation, Normal respiratory effort Cardiovascular: Regular Rate, Regular Rhythm Abdomen: bowel sounds present, distension (mild. ) - Problem List & Annotations (1) Laceration SNOMED Code(s): 421084916 Code(s): T14.8 - OTHER INJURY OF UNSPECIFIED BODY REGION Status: Acute Current Visit: No (2) Ruptured spleen SNOMED Code(s): 148532452 Status: Resolved Current Visit: Yes Annotation/Comment:: splenectomy - Problem List Review Problem List Initiated/Reviewed/Updated: Yes - My Orders Last 24 Hours: Active Orders 24 hr Category Date Time Status Regular Diet [DIET] Diet 11/27/16 Lunch Active Acetaminophen/HYDROcodone [[place] 325-5 MG] Med 11/27/16 09:09 Active 2 tab PO Q4H PRN Bisacodyl [Dulcolax] Med 11/27/16 10:30 Ordered 10 mg RECTAL DAILY Medication Orders Acetaminophen/Hydrocodone Bitart ([place] 325-5 Mg) 2 tab PO Q4H PRN PRN Reason: Pain Last Admin: 11/27/16 10:09 Dose: 2 tab Albuterol/Ipratropium (Duoneb 3.0-0.5 Mg/3 Ml) 3 ml NEB Q4H PRN PRN Reason: Dyspnea Last Admin: 11/24/16 22:39 Dose: 3 ml Sodium Chloride (Normal Saline) 250 mls @ 100 mls/hr IV ASDIRECTED PRN PRN Reason: blood Lorazepam (Ativan) 0 mg IV ASDIRECTED [facility] PRN Reason: Protocol Sodium Chloride (Saline Flush) 10 ml FLUSH ASDIRECTED PRN PRN Reason: Keep Vein Open - Assessment Assessment (Free Text/Narrative):: some abd distention. - Plan Plan (Free Text/Narrative):: supsitory to help with bm will start low dose reglan as well.
[2016-11-27] MEDS: Metoclopramide 5 MG Tab PO SCH ×3 (11:42→21:24)
[2016-11-27] MEDS: Bisacodyl 10 MG Supp RECTAL SCH (11:42)
[2016-11-27] MEDS: Potassium Chloride 20 MEQ Tab.ER PO SCH (21:25)
[2016-11-28] MEDS: Acetaminophen/HYDROcodone 325-5 MG Tab PO PRN ×4 (04:00→20:46)
[2016-11-28] MEDS: Metoclopramide 5 MG Tab PO SCH ×4 (08:36→20:46)
--- NOTE | 2016-11-28 11:48 | PCM.SURGPN ---
- General Info Date of Service: 11/28/16 POD#: 5 Functional Status: Reports: pain controlled, tolerating diet, ambulating, urinating. Denies: new symptoms - Review of Systems Pulmonary: Reports: no symptoms Cardiovascular: Reports: No Symptoms Gastrointestinal: Reports: Flatus. Denies: Abdominal pain - Patient Data Vitals - most recent: Last Vital Signs Temp 36.2 C 11/28/16 11:25 Pulse 65 11/28/16 04:00 Resp 18 11/28/16 11:25 BP 132/94 H 11/28/16 11:25 Pulse Ox 100 11/28/16 11:25 Weight - most recent: 75.614 kg I&O - last 24 hours: Intake & Output 11/27/16 11/28/16 11/28/16 22:59 06:59 14:59 Intake Total 600 Output Total 1050 Balance -450 Lab Results last 24 hrs: Laboratory Results - last 24 hr 11/27/16 Range/Units 12:32 Sodium 131 L (135-145) mmol/L Potassium 3.3 L D (3.5-5.3) mmol/L Chloride 94 L D (100-110) mmol/L Carbon Dioxide 32 H (23-29) mmol/L BUN 7 D (5-20) mg/dL Creatinine 0.8 (0.6-1.3) mg/dL Est Cr Clr Drug Dosing 130.63 mL/min Estimated GFR (MDRD) > 60 (>60) BUN/Creatinine Ratio 8.8 L (9-20) Glucose 156 H (80-116) mg/dL Calcium 8.7 (8.6-10.2) mg/dL Med Orders - Current: Current Medications Acetaminophen/Hydrocodone Bitart ([place] 325-5 Mg) 2 tab PO Q4H PRN PRN Reason: Pain Last Admin: 11/28/16 08:36 Dose: 2 tab Albuterol/Ipratropium (Duoneb 3.0-0.5 Mg/3 Ml) 3 ml NEB Q4H PRN PRN Reason: Dyspnea Last Admin: 11/24/16 22:39 Dose: 3 ml Bisacodyl (Dulcolax) 10 mg RECTAL DAILY [facility] Last Admin: 11/27/16 11:42 Dose: 10 mg Sodium Chloride (Normal Saline) 250 mls @ 100 mls/hr IV ASDIRECTED PRN PRN Reason: blood Lorazepam (Ativan) 0 mg IV ASDIRECTED [facility] PRN Reason: Protocol Metoclopramide HCl (Reglan) 5 mg PO QIDACANDBED [facility] Last Admin: 11/28/16 11:24 Dose: 5 mg Potassium Chloride (Klor-Con M20) 20 meq PO BEDTIME [facility] Last Admin: 11/27/16 21:25 Dose: 20 meq Sodium Chloride (Saline Flush) 10 ml FLUSH ASDIRECTED PRN PRN Reason: Keep Vein Open Discontinued Medications Acetaminophen/Hydrocodone Bitart ([place] 325-5 Mg) 1 tab PO Q4H PRN PRN Reason: Pain Cefazolin Sodium (Ancef) 1 gm IV .STK-MED ONE Stop: 11/23/16 18:01 Fentanyl (Sublimaze) 100 mcg IV .STK-MED ONE Stop: 11/23/16 18:01 Glycopyrrolate (Robinul) 0.8 mg IVPUSH .STK-MED ONE Stop: 11/23/16 18:01 Hydromorphone HCl (Dilaudid) 2 mg IVPUSH ONETIME ONE Stop: 11/23/16 08:48 Last Admin: 11/23/16 09:13 Dose: 2 mg Hydromorphone HCl (Dilaudid) Confirm Administered Dose 2 mg .ROUTE .STK-MED ONE Stop: 11/23/16 11:26 Last Admin: 11/23/16 11:42 Dose: Not Given Hydromorphone HCl (Dilaudid) 2 mg IVPUSH ONETIME ONE Stop: 11/23/16 11:26 Last Admin: 11/23/16 11:25 Dose: 2 mg Hydromorphone HCl (Dilaudid) 2 mg IVPUSH Q2H PRN PRN Reason: Pain Hydromorphone HCl (Dilaudid) 1 mg IVPUSH ONETIME ONE Stop: 11/23/16 18:05 Last Admin: 11/23/16 18:17 Dose: 1 mg Hydromorphone HCl (Dilaudid) 2 mg IV .STK-MED ONE Stop: 11/23/16 18:01 Lactated Ringer's (Ringers, Lactated) 1,000 mls @ 999 mls/hr IV BOLUS ONE Stop: 11/23/16 09:46 Last Admin: 11/23/16 09:45 Dose: 999 mls/hr Sodium Chloride (Normal Saline) 1,000 mls @ 999 mls/hr IV .BOLUS ONE Stop: 11/23/16 09:45 Last Admin: 11/23/16 08:45 Dose: 999 mls/hr Lactated Ringer's (Ringers, Lactated) 1,000 mls @ 75 mls/hr IV ASDIRECTED [facility] Last Admin: 11/27/16 06:00 Dose: 75 mls/hr Sodium Chloride (Normal Saline) 1,000 mls @ 75 mls/hr IV ASDIRECTED [facility] Last Infusion: 11/23/16 12:40 Dose: 125 mls/hr Albumin Human (Flexbumin 5%) 250 mls @ 250 mls/hr IV ONETIME ONE Stop: 11/24/16 09:59 Last Admin: 11/24/16 09:35 Dose: 250 mls/hr Phenylephrine HCl 1 mg/ Sodium (Chloride) 500.1 mls @ as directed IV .STK-MED ONE Stop: 11/23/16 18:01 Lactated Ringer's (Ringers, Lactated) 1,000 mls @ as directed IV .STK-MED ONE Stop: 11/23/16 18:01 Sodium Chloride (Normal Saline) 250 mls @ as directed IV .STK-MED ONE Stop: 11/23/16 20:01 Ketamine HCl (Ketalar) 60 mg IV .STK-MED ONE Stop: 11/23/16 18:01 Midazolam HCl (Versed 1 Mg/Ml) 2 mg IV .STK-MED ONE Stop: 11/23/16 18:01 Morphine Sulfate (Morphine) 2 mg IVPUSH Q2H PRN PRN Reason: Pain (severe 7-10) Last Admin: 11/23/16 18:01 Dose: 2 mg Morphine Sulfate (Morphine Business Supervisor 30 Mg In 30 Ml) 0 mg IV ASDIRECTED [facility] PRN Reason: Protocol Last Admin: 11/26/16 22:28 Dose: 30 mg Neostigmine Methylsulfate (Neostigmine) 5 mg IV .STK-MED ONE Stop: 11/23/16 18:01 Ondansetron HCl (Zofran) 4 mg IVPUSH ONETIME ONE Stop: 11/23/16 08:52 Last Admin: 11/23/16 09:10 Dose: 4 mg Ondansetron HCl (Zofran) 4 mg IV Q6H PRN PRN Reason: Nausea/Vomiting Ondansetron HCl (Zofran) 4 mg IVPUSH .STK-MED ONE Stop: 11/23/16 18:01 Propofol (Diprivan 20 Ml) 80 mg IV .STK-MED ONE Stop: 11/23/16 18:01 Rocuronium [place] (Zemuron) 50 mg IV .STK-MED ONE Stop: 11/23/16 18:01 Succinylcholine Chloride (Quelicin) 160 mg IV .STK-MED ONE Stop: 11/23/16 18:01 - Exam Wound/Incisions: dressing dry and intact General: alert, oriented, cooperative, no acute distress Lungs: Clear to auscultation, Normal respiratory effort Cardiovascular: Regular Rate, Regular Rhythm Abdomen: bowel sounds present, soft, no distension - Problem List & Annotations (1) Laceration SNOMED Code(s): 732670292 Code(s): T14.8 - OTHER INJURY OF UNSPECIFIED BODY REGION Status: Acute Current Visit: No (2) Ruptured spleen SNOMED Code(s): 149413070 Status: Resolved Current Visit: Yes Annotation/Comment:: splenectomy - Problem List Review Problem List Initiated/Reviewed/Updated: Yes - My Orders Last 24 Hours: Active Orders 24 hr Category Date Time Status Regular Diet [DIET] Diet 11/28/16 Dinner Ordered Metoclopramide [Reglan] Med 11/27/16 11:30 Active 5 mg PO QIDACANDBED Potassium Chloride [Klor-Con M20] Med 11/27/16 21:00 Active 20 meq PO BEDTIME Medication Orders Acetaminophen/Hydrocodone Bitart ([place] 325-5 Mg) 2 tab PO Q4H PRN PRN Reason: Pain Last Admin: 11/28/16 08:36 Dose: 2 tab Admin: 11/28/16 04:00 Dose: 2 tab Admin: 11/27/16 21:20 Dose: 2 tab Admin: 11/27/16 15:31 Dose: 2 tab Admin: 11/27/16 10:09 Dose: 2 tab Albuterol/Ipratropium (Duoneb 3.0-0.5 Mg/3 Ml) 3 ml NEB Q4H PRN PRN Reason: Dyspnea Last Admin: 11/24/16 22:39 Dose: 3 ml Bisacodyl (Dulcolax) 10 mg RECTAL DAILY [facility] Last Admin: 11/27/16 11:42 Dose: 10 mg Sodium Chloride (Normal Saline) 250 mls @ 100 mls/hr IV ASDIRECTED PRN PRN Reason: blood Lorazepam (Ativan) 0 mg IV ASDIRECTED [facility] PRN Reason: Protocol Metoclopramide HCl (Reglan) 5 mg PO QIDACANDBED [facility] Last Admin: 11/28/16 11:24 Dose: 5 mg Admin: 11/28/16 08:36 Dose: 5 mg Admin: 11/27/16 21:24 Dose: 5 mg Admin: 11/27/16 18:05 Dose: 5 mg Admin: 11/27/16 11:42 Dose: 5 mg Potassium Chloride (Klor-Con M20) 20 meq PO BEDTIME [facility] Last Admin: 11/27/16 21:25 Dose: 20 meq Sodium Chloride (Saline Flush) 10 ml FLUSH ASDIRECTED PRN PRN Reason: Keep Vein Open - Assessment Assessment (Free Text/Narrative):: exam is markedly better today. - Plan Plan (Free Text/Narrative):: advance diet anticipate discharge in am
[2016-11-28] MEDS: Bisacodyl 10 MG Supp RECTAL SCH (13:34)
[2016-11-28] MEDS ORDERED: Ondansetron 4 MG Tab.DIS PO PRN (17:22)
[2016-11-28] MEDS: Potassium Chloride 20 MEQ Tab.ER PO SCH (20:45)
[2016-11-29] MEDS: Acetaminophen/HYDROcodone 325-5 MG Tab PO PRN ×2 (07:24→12:18)
[2016-11-29] MEDS: Metoclopramide 5 MG Tab PO SCH ×2 (07:24→12:11)
[2016-11-29] MEDS: Bisacodyl 10 MG Supp RECTAL SCH (08:49)
[2016-11-29 08:57] VITALS: BP 136/90
--- NOTE | 2016-11-29 11:39 | PCM.SURGPN ---
- General Info Date of Service: 11/29/16 POD#: 6 Functional Status: Reports: pain controlled, tolerating diet, other (occasional bouts of nausea ) - Review of Systems Pulmonary: Reports: no symptoms Cardiovascular: Reports: No Symptoms Gastrointestinal: Reports: Nausea - Patient Data Vitals - most recent: Last Vital Signs Temp 36.6 C 11/29/16 07:45 Pulse 74 11/29/16 07:45 Resp 20 11/29/16 07:45 BP 136/90 11/29/16 07:45 Pulse Ox 100 11/29/16 07:45 Weight - most recent: 75.614 kg I&O - last 24 hours: Intake & Output 11/28/16 11/29/16 11/29/16 22:59 06:59 14:59 Intake Total 650 350 Output Total 1500 725 Balance -850 -375 Med Orders - Current: Current Medications Acetaminophen/Hydrocodone Bitart ([place] 325-5 Mg) 2 tab PO Q4H PRN PRN Reason: Pain Last Admin: 11/29/16 07:24 Dose: 2 tab Albuterol/Ipratropium (Duoneb 3.0-0.5 Mg/3 Ml) 3 ml NEB Q4H PRN PRN Reason: Dyspnea Last Admin: 11/24/16 22:39 Dose: 3 ml Bisacodyl (Dulcolax) 10 mg RECTAL DAILY [facility] Last Admin: 11/29/16 08:49 Dose: Not Given Sodium Chloride (Normal Saline) 250 mls @ 100 mls/hr IV ASDIRECTED PRN PRN Reason: blood Lorazepam (Ativan) 0 mg IV ASDIRECTED [facility] PRN Reason: Protocol Metoclopramide HCl (Reglan) 5 mg PO QIDACANDBED [facility] Last Admin: 11/29/16 07:24 Dose: 5 mg Ondansetron HCl (Zofran Odt) 4 mg PO Q6H PRN PRN Reason: Nausea/Vomiting Last Admin: 11/28/16 18:20 Dose: 4 mg Potassium Chloride (Klor-Con M20) 20 meq PO BEDTIME [facility] Last Admin: 11/28/16 20:45 Dose: 20 meq Sodium Chloride (Saline Flush) 10 ml FLUSH ASDIRECTED PRN PRN Reason: Keep Vein Open Discontinued Medications Acetaminophen/Hydrocodone Bitart ([place] 325-5 Mg) 1 tab PO Q4H PRN PRN Reason: Pain Last Admin: 11/28/16 17:44 Dose: 1 tab Cefazolin Sodium (Ancef) 1 gm IV .STK-MED ONE Stop: 11/23/16 18:01 Fentanyl (Sublimaze) 100 mcg IV .STK-MED ONE Stop: 11/23/16 18:01 Glycopyrrolate (Robinul) 0.8 mg IVPUSH .STK-MED ONE Stop: 11/23/16 18:01 Hydromorphone HCl (Dilaudid) 2 mg IVPUSH ONETIME ONE Stop: 11/23/16 08:48 Last Admin: 11/23/16 09:13 Dose: 2 mg Hydromorphone HCl (Dilaudid) Confirm Administered Dose 2 mg .ROUTE .STK-MED ONE Stop: 11/23/16 11:26 Last Admin: 11/23/16 11:42 Dose: Not Given Hydromorphone HCl (Dilaudid) 2 mg IVPUSH ONETIME ONE Stop: 11/23/16 11:26 Last Admin: 11/23/16 11:25 Dose: 2 mg Hydromorphone HCl (Dilaudid) 2 mg IVPUSH Q2H PRN PRN Reason: Pain Hydromorphone HCl (Dilaudid) 1 mg IVPUSH ONETIME ONE Stop: 11/23/16 18:05 Last Admin: 11/23/16 18:17 Dose: 1 mg Hydromorphone HCl (Dilaudid) 2 mg IV .STK-MED ONE Stop: 11/23/16 18:01 Lactated Ringer's (Ringers, Lactated) 1,000 mls @ 999 mls/hr IV BOLUS ONE Stop: 11/23/16 09:46 Last Admin: 11/23/16 09:45 Dose: 999 mls/hr Sodium Chloride (Normal Saline) 1,000 mls @ 999 mls/hr IV .BOLUS ONE Stop: 11/23/16 09:45 Last Admin: 11/23/16 08:45 Dose: 999 mls/hr Lactated Ringer's (Ringers, Lactated) 1,000 mls @ 75 mls/hr IV ASDIRECTED [facility] Last Admin: 11/27/16 06:00 Dose: 75 mls/hr Sodium Chloride (Normal Saline) 1,000 mls @ 75 mls/hr IV ASDIRECTED [facility] Last Infusion: 11/23/16 12:40 Dose: 125 mls/hr Albumin Human (Flexbumin 5%) 250 mls @ 250 mls/hr IV ONETIME ONE Stop: 11/24/16 09:59 Last Admin: 11/24/16 09:35 Dose: 250 mls/hr Phenylephrine HCl 1 mg/ Sodium (Chloride) 500.1 mls @ as directed IV .STK-MED ONE Stop: 11/23/16 18:01 Lactated Ringer's (Ringers, Lactated) 1,000 mls @ as directed IV .STK-MED ONE Stop: 11/23/16 18:01 Sodium Chloride (Normal Saline) 250 mls @ as directed IV .STK-MED ONE Stop: 11/23/16 20:01 Ketamine HCl (Ketalar) 60 mg IV .STK-MED ONE Stop: 11/23/16 18:01 Midazolam HCl (Versed 1 Mg/Ml) 2 mg IV .STK-MED ONE Stop: 11/23/16 18:01 Morphine Sulfate (Morphine) 2 mg IVPUSH Q2H PRN PRN Reason: Pain (severe 7-10) Last Admin: 11/23/16 18:01 Dose: 2 mg Morphine Sulfate (Morphine Linen Folder 30 Mg In 30 Ml) 0 mg IV ASDIRECTED [facility] PRN Reason: Protocol Last Admin: 11/26/16 22:28 Dose: 30 mg Neostigmine Methylsulfate (Neostigmine) 5 mg IV .STK-MED ONE Stop: 11/23/16 18:01 Ondansetron HCl (Zofran) 4 mg IVPUSH ONETIME ONE Stop: 11/23/16 08:52 Last Admin: 11/23/16 09:10 Dose: 4 mg Ondansetron HCl (Zofran) 4 mg IV Q6H PRN PRN Reason: Nausea/Vomiting Ondansetron HCl (Zofran) 4 mg IVPUSH .STK-MED ONE Stop: 11/23/16 18:01 Propofol (Diprivan 20 Ml) 80 mg IV .STK-MED ONE Stop: 11/23/16 18:01 Rocuronium [place] (Zemuron) 50 mg IV .STK-MED ONE Stop: 11/23/16 18:01 Succinylcholine Chloride (Quelicin) 160 mg IV .STK-MED ONE Stop: 11/23/16 18:01 - Exam Wound/Incisions: healing well Lungs: Clear to auscultation, Normal respiratory effort Cardiovascular: Regular Rate, Regular Rhythm Abdomen: bowel sounds present, soft, no tenderness - Problem List & Annotations (1) Laceration SNOMED Code(s): 496327054 Code(s): T14.8 - OTHER INJURY OF UNSPECIFIED BODY REGION Status: Acute Current Visit: No (2) Ruptured spleen SNOMED Code(s): 348806589 Status: Resolved Current Visit: Yes Annotation/Comment:: splenectomy - Problem List Review Problem List Initiated/Reviewed/Updated: Yes - My Orders Last 24 Hours: Active Orders 24 hr Category Date Time Status Ready for Discharge [RC] PER UNIT ROUTINE Care 11/29/16 11:37 Ordered Ondansetron [Zofran ODT] Med 11/28/16 17:22 Active 4 mg PO Q6H PRN Medication Orders Acetaminophen/Hydrocodone Bitart ([place] 325-5 Mg) 2 tab PO Q4H PRN PRN Reason: Pain Last Admin: 11/29/16 07:24 Dose: 2 tab Admin: 11/28/16 20:46 Dose: 2 tab Admin: 11/28/16 13:35 Dose: 2 tab Admin: 11/28/16 08:36 Dose: 2 tab Admin: 11/28/16 04:00 Dose: 2 tab Admin: 11/27/16 21:20 Dose: 2 tab Admin: 11/27/16 15:31 Dose: 2 tab Admin: 11/27/16 10:09 Dose: 2 tab Albuterol/Ipratropium (Duoneb 3.0-0.5 Mg/3 Ml) 3 ml NEB Q4H PRN PRN Reason: Dyspnea Last Admin: 11/24/16 22:39 Dose: 3 ml Bisacodyl (Dulcolax) 10 mg RECTAL DAILY [facility] Last Admin: 11/29/16 08:49 Dose: Not Given Admin: 11/28/16 13:34 Dose: 10 mg Admin: 11/27/16 11:42 Dose: 10 mg Sodium Chloride (Normal Saline) 250 mls @ 100 mls/hr IV ASDIRECTED PRN PRN Reason: blood Lorazepam (Ativan) 0 mg IV ASDIRECTED [facility] PRN Reason: Protocol Metoclopramide HCl (Reglan) 5 mg PO QIDACANDBED [facility] Last Admin: 11/29/16 07:24 Dose: 5 mg Admin: 11/28/16 20:46 Dose: 5 mg Admin: 11/28/16 17:39 Dose: 5 mg Admin: 11/28/16 11:24 Dose: 5 mg Admin: 11/28/16 08:36 Dose: 5 mg Admin: 11/27/16 21:24 Dose: 5 mg Admin: 11/27/16 18:05 Dose: 5 mg Admin: 11/27/16 11:42 Dose: 5 mg Ondansetron HCl (Zofran Odt) 4 mg PO Q6H PRN PRN Reason: Nausea/Vomiting Last Admin: 11/28/16 18:20 Dose: 4 mg Potassium Chloride (Klor-Con M20) 20 meq PO BEDTIME [facility] Last Admin: 11/28/16 20:45 Dose: 20 meq Admin: 11/27/16 21:25 Dose: 20 meq Sodium Chloride (Saline Flush) 10 ml FLUSH ASDIRECTED PRN PRN Reason: Keep Vein Open - Assessment Assessment (Free Text/Narrative):: ready for discharge - Plan Plan (Free Text/Narrative):: d/c to home
--- NOTE | 2016-11-30 02:16 | DISCH ---
DISCHARGE DATE: 11/29/2016 CHIEF COMPLAINT: Abdominal pain. REASON FOR ADMISSION: Ruptured spleen. HISTORY AND PHYSICAL: Please see my H and P. HOSPITAL COURSE: The patient was admitted and placed in the intensive care unit for observation. During the course of the day, he did quite well, however, in the evening, several hours after my last exam, the patient was noted to have increasing pain had become tachycardic. On examination, it showed more definitive peritoneal sucks and with his rapidly increasing heart rate, he was taken emergently to the operating room where he underwent a splenectomy. The remainder of the intraabdominal exam was essentially unremarkable. The patient was returned to the intensive care unit that day. NG tube decompression was started and he remained essentially hemodynamically stable with good urine output and by postop day number 2, his NG-tube and Block were discontinued and the patient was discharged to the floor. Hospital course since that time was essentially unremarkable. The patient has been stable, has had a slight drop in his hemoglobin and hematocrit, which he appears to be tolerating. He developed flatus by day 4 and a diet was started. He did have some issues with abdominal distention and pain. He was made n.p.o. for an additional 24 hours and started on some Reglan, which helped with his symptoms. Since that time, he has been tolerating a liquid to a full liquid diet as well as an intermittent regular diet. He does have occasional bouts of postop nausea, which are very short lived. He is moving his bowels and essentially has been hemodynamically stable. He would like to go home and I see no reason to maintain the patient here in the facility, as he is tolerating p.o. intake. FINAL DIAGNOSIS: Ruptured spleen of unknown etiology. PROCEDURE PERFORMED DURING HOSPITALIZATION: Exploratory laparotomy with splenectomy. DISPOSITION: Patient is discharged to home. He is to avoid any heavy lifting or straining. He may shower. DIET: As tolerated. DISCHARGE MEDICATIONS: He will be given a prescription for hydrocodone, acetaminophen 5/325 1-2 p.o. q.4-6 hours as needed for pain. Colace 100 mg p.o. b.i.d. and finally some Zofran 4 mg p.o. q.6 hours as needed for nausea and vomiting. FOLLOWUP: He is to follow up in my office next Friday for staple removal. He may shower. /[id number] /[id number]
== END 2016-11-29 13:25 | disposition home or self-care (01) | DRG 650 ==
LOC: FB.ED 08:33 → MERGE 11:14 → FB.ICU 11:14 → FB.MS 11-25 08:45
PROVIDERS: ADMIT Surgery; ATTEND Surgery
PROC: 07TP0ZZ Resection of Spleen, Open Approach (ICD-10-PCS; principal; 2016-11-23)
PROC: 0WJP0ZZ Inspection of Gastrointestinal Tract, Open Approach (ICD-10-PCS; 2016-11-23)
PROC: 0WJG0ZZ Inspection of Peritoneal Cavity, Open Approach (ICD-10-PCS; 2016-11-23)
PROC: 30233N1 Transfusion of Nonautologous Red Blood Cells into Peripheral Vein, Percutaneous Approach (ICD-10-PCS; 2016-11-23)
DX: S36.09XA Other injury of spleen, initial encounter (principal); Z72.89 Other problems related to lifestyle; Y90.6 Blood alcohol level of 120-199 mg/100 ml; D78.01 Intraoperative hemorrhage and hematoma of the spleen complicating a procedure on the spleen
CPT/HCPCS: 36415; 36430; 74176; 80048; 80053; 81001; 82150; 85025; 86850; 86900; 86901; 86920; 86922; 88305; 94150; 96361; 96374; 96375; 96376; 99285; A9270-GY; G0480; J0330; J0690; J1170; J2250; J2270; J2274; J2370; J2405; J2704; J3010; J7040; J7050; J7120; J7620; P9016; P9045

== ENCOUNTER 2019-04-15 23:35 | Emergency (ER) | payer BC ==
[2019-04-15] MEDS ORDERED: Sodium Chloride 0.9% 1,000 ML IV ONE (23:47)
[2019-04-15] MEDS ORDERED: Ondansetron 4 MG/2 ML SDV IVPUSH ONE (23:48)
--- NOTE | 2019-04-15 23:52 | EDM.PDOC ---
ED HPI GENERAL MEDICAL PROBLEM - General Stated Complaint: SIDE PAIN Time Seen by Provider: 04/15/19 23:35 Source of Information: Reports: Patient History Limitations: Reports: No Limitations - History of Present Illness INITIAL COMMENTS - FREE TEXT/NARRATIVE: 34 y.o.w.m with a H/O Sarcoidosis, S/P splenectomy, came to the ED due to left flank pain, started 2 days ago. He is very anxious as well with a resting tremor. Denies ETOH or drug use. Pt stated, he has a tremor because he does not like "medical facilities" He has a clinic appointment Friday with his PMD. No Trauma, No SOB. he has chest pain for 8 months, was worked up at [facility] for this in the past. Wants to be referred to [facility]. No cause of CP was found as of yet. No other acute med issues. BP 117/99 RR 24 Pulse 100 Pulse ox 99% on RA Temp 36.8 Onset Date: 04/14/19 Onset Time: 07:00 Duration: Day(s):, Getting Worse, Intermittent Location: Reports: Abdomen Quality: Reports: Burning, Dull, Pressure Severity: Moderate Improves with: Reports: None Worsens with: Reports: None Context: Reports: Other (H/O Spleenextomy) Associated Symptoms: Reports: Nausea/Vomiting, Weakness L upper abdomen radiating into L flank Pain Score (Numeric/FACES): 9 - Related Data Allergies Allergy/AdvReac Type Severity Reaction Status Date / Time No Known Allergies Allergy Verified 04/16/19 14:20 Home Meds: Home Meds Ondansetron [Zofran ODT] 4 mg PO Q6H PRN #20 tab.dis 11/29/16 [Rx] Acetaminophen/oxyCODONE [Percocet 325-5 MG] 1 each PO Q6HR PRN #12 tab 04/16/19 [Rx] Ciprofloxacin HCl [Cipro] 500 mg PO BID #20 tablet 04/16/19 [Rx] Metoprolol Succinate [Toprol Xl] 50 mg PO DAILY 04/16/19 [History] Tamsulosin [Tamsulosin 24 Hr] 0.4 mg PO DAILY #4 cap.er 04/16/19 [Rx] Valsartan 80 mg BEDTIME 04/16/19 [History] Past Medical History - Past Health History Medical/Surgical History: Denies Medical/Surgical History Immunologic History: Reports: Other (See Below) Other Immunologic History: spleen enlarged 2006- Unknown cause? - Past Surgical History Head Surgeries/Procedures: Reports: None Social & Family History - Family History Family Medical History: Noncontributory Respiratory: Reports: Other (See Below) Other Respiratory Family Hisory: father- resp failures, mrsa pneum, tracheostomy in place, : Reports: Other (See Below) Other Family History: father- endocrine disorders, Musculoskeletal: Reports: Other (See Below) Other Musculoskeletal Family History: father- quadaparesis (muscle weakness), peripheral neuropathy Neurological: Reports: Neuropathy, Peripheral, Other (See Below) Other Neurological Family History: father- menningitis, headaches, Psychiatric: Reports: Other (See Below) Other Psychiatric Family History: father- anxiety related to his failing health, Other Endocrine/Metabolic Family History: father- endocrine disorder Immunologic: Reports: Other (See Below) Other Immunologic Family History: father- metabolic, immunity disorders, MSSA septicemia - Caffeine Use Caffeine Use: Reports: Soda ED ROS GENERAL - Review of Systems Review Of Systems: See Below Constitutional: Reports: Weakness HEENT: Reports: No Symptoms Respiratory: Reports: No Symptoms Cardiovascular: Reports: No Symptoms Endocrine: Reports: No Symptoms GI/Abdominal: Reports: Abdominal Pain : Reports: Dysuria, Flank Pain Musculoskeletal: Reports: No Symptoms Skin: Reports: No Symptoms Neurological: Reports: No Symptoms Psychiatric: Reports: No Symptoms Hematologic/Lymphatic: Reports: No Symptoms Immunologic: Reports: No Symptoms ED EXAM, GI/ABD - Physical Exam Exam: See Below Exam Limited By: No Limitations General Appearance: Alert, WD/WN, Moderate Distress Eyes: Bilateral: Normal Appearance Ears: Normal External Exam Nose: Normal Inspection, Normal Mucosa Throat/Mouth: Normal Inspection, Normal Lips, Normal Voice, No Airway Compromise Head: Atraumatic, Normocephalic Neck: Normal Inspection, Supple, Non-Tender, Full Range of Motion Respiratory/Chest: No Respiratory Distress, Lungs Clear, Normal Breath Sounds, Chest Non-Tender Cardiovascular: Normal Peripheral Pulses, Regular Rate, Rhythm, No Edema, No Rub GI/Abdominal Exam: No Distention, No Mass, Pelvis Stable, Tender (left flank) (Male) Exam: Deferred Rectal (Males) Exam: Deferred Back Exam: Normal Inspection, Full Range of Motion Extremities: Normal Inspection, Normal Range of Motion, Non-Tender, No Pedal Edema, Normal Capillary Refill Neurological: Alert, Oriented, CN II-XII Intact, Normal Cognition, Normal Gait, No Motor/Sensory Deficits Psychiatric: Normal Affect, Normal Mood Skin Exam: Warm, Dry, Intact, Normal Color, No Rash Lymphatic: No Adenopathy Course - Vital Signs Text/Narrative:: 34 y.o.w.m with a H/O Sarcoidosis, S/P splenectomy, came to the ED due to left flank pain, started 2 days ago. He is very anxious as well with a resting tremor. Denies ETOH or drug use. Pt stated, he has a tremor because he does not like "medical facilities" He has a clinic appointment Friday with his PMD. No Trauma, No SOB. he has chest pain for 8 months, was worked up at [facility] for this in the past. Wants to be referred to [facility]. No cause of CP was found as of yet. No other acute med issues. BP 117/99 RR 24 Pulse 100 Pulse ox 99% on RA Temp 36.8 PE: Thin 34 y.o.w.m left flank pain, anxious. Imaging: Urolithiasis with mild left hydronephrosis, 2 stones in prox ureter measuring 4x3 mm, fat containing umbilical hernia, Cholelithiasis, Fatty liver Labs: Elevated liver enzymes. Lactic acid 6.2, CBC nl except MCV 101 Impression: H/O Sarcoidosis, S/P Splenectomy, Urolithiases, UTI, Lactic acid elevated. Tx: Toradol, Zofran, Flomax, Levaquin. Percocet 1 tablet to go home with Reexam: Improved. Pt requested to be discharged even though his Lactic acid was elevated and his spleen is out. for pron for infections. Pt signed out AMA Plan:Pt signed out AMA because he did not want to miss the appointment with his PMD at 2 pm Last Recorded V/S: Last Vital Signs Temp 37.4 C 04/16/19 02:50 Pulse 102 H 04/16/19 03:10 Resp 20 04/16/19 03:10 BP 134/87 04/16/19 03:10 Pulse Ox 100 04/16/19 03:10 - Orders/Labs/Meds Labs: Laboratory Tests 04/15/19 04/15/19 04/16/19 Range/Units 23:55 23:55 00:18 WBC 7.5 (4.5-12.0) X10-3/uL RBC 4.17 L (4.30-5.75) x10(6)uL Hgb 14.6 (13.5-17.8) g/dL Hct 42.3 D (30.0-51.3) % MCV 101.3 H (80-96) fL MCH 34.9 H (27.7-33.6) pg MCHC 34.5 (32.2-35.4) g/dL RDW 13.6 (11.5-15.5) % Plt Count 217 (125-369) X10(3)uL MPV 7.9 (7.4-10.4) fL Neut % (Auto) 63.5 (46-82) % Lymph % (Auto) 27.2 (13-37) % [place] % (Auto) 8.3 (4-12) % Eos % (Auto) 0 L (1.0-5.0) % Baso % (Auto) 1 (0-2) % Neut # (Auto) 4.8 (1.6-8.3) # Lymph # (Auto) 2.0 (0.6-5.0) # [place] # (Auto) 0.6 (0.0-1.3) # Eos # (Auto) 0.0 (0.0-0.8) # Baso # (Auto) 0.1 (0.0-0.2) # Sodium 143 (135-145) mmol/L Potassium 4.5 (3.5-5.3) mmol/L Chloride 102 (100-110) mmol/L Carbon Dioxide 23 (21-32) mmol/L BUN 12 (7-18) mg/dL Creatinine 1.1 (0.70-1.30) mg/dL Est Cr Clr Drug Dosing 92.41 mL/min Estimated GFR (MDRD) > 60 (>60) BUN/Creatinine Ratio 10.9 (9-20) Glucose 118 H (80-116) mg/dL Lactic Acid 6.2 H* (0.4-2.2) mmol/L Calcium 9.1 (8.6-10.2) mg/dL Total Bilirubin 1.0 (0.1-1.3) mg/dL Direct Bilirubin 0.49 H (0.10-0.20) mg/dL AST 191 H* (5-25) IU/L ALT 121 H (12-36) U/L Alkaline Phosphatase 274 H (56-112) IU/L Total Protein 7.7 (6.0-8.0) g/dL Albumin 3.8 (3.5-5.2) g/dL Urine Color (YELLOW) Urine Appearance (CLEAR) Urine pH (5.0-6.5) Ur Specific [place] (1.010-1.025) Urine Protein (NEGATIVE) mg/dL Urine Glucose (UA) (NORMAL) mg/dL Urine Ketones (NEGATIVE) mg/dL Urine Occult Blood (NEGATIVE) Urine Nitrite (NEGATIVE) Urine Bilirubin (NEGATIVE) Urine Urobilinogen (NEGATIVE) mg/dL Ur Leukocyte Esterase (NEGATIVE) Urine RBC (0-5) Urine WBC (0-5) Ur Squamous Epith Cells (NS,R,O) Calcium Oxalate Crystal (NS) Amorphous Sediment Urine Bacteria (NS) Fine Granular Casts (NS) Urine Opiates Screen (NEGATIVE) Ur Oxycodone Screen (NEGATIVE) Ur Propoxyphene Screen (NEGATIVE) Ur Barbituates Screen (NEGATIVE) Ur Tricyclics Screen (NEGATIVE) Ur Phencyclidine Scrn (NEGATIVE) Ur Amphetamine Screen (NEGATIVE) Urine MDMA Screen (NEGATIVE) U Benzodiazepines Scrn (NEGATIVE) U Cocaine Metab Screen (NEGATIVE) U Marijuana (THC) Screen (NEGATIVE) 04/16/19 04/16/19 Range/Units 00:45 00:45 WBC (4.5-12.0) X10-3/uL RBC (4.30-5.75) x10(6)uL Hgb (13.5-17.8) g/dL Hct (30.0-51.3) % MCV (80-96) fL MCH (27.7-33.6) pg MCHC (32.2-35.4) g/dL RDW (11.5-15.5) % Plt Count (125-369) X10(3)uL MPV (7.4-10.4) fL Neut % (Auto) (46-82) % Lymph % (Auto) (13-37) % [place] % (Auto) (4-12) % Eos % (Auto) (1.0-5.0) % Baso % (Auto) (0-2) % Neut # (Auto) (1.6-8.3) # Lymph # (Auto) (0.6-5.0) # [place] # (Auto) (0.0-1.3) # Eos # (Auto) (0.0-0.8) # Baso # (Auto) (0.0-0.2) # Sodium (135-145) mmol/L Potassium (3.5-5.3) mmol/L Chloride (100-110) mmol/L Carbon Dioxide (21-32) mmol/L BUN (7-18) mg/dL Creatinine (0.70-1.30) mg/dL Est Cr Clr Drug Dosing mL/min Estimated GFR (MDRD) (>60) BUN/Creatinine Ratio (9-20) Glucose (80-116) mg/dL Lactic Acid (0.4-2.2) mmol/L Calcium (8.6-10.2) mg/dL Total Bilirubin (0.1-1.3) mg/dL Direct Bilirubin (0.10-0.20) mg/dL AST (5-25) IU/L ALT (12-36) U/L Alkaline Phosphatase (56-112) IU/L Total Protein (6.0-8.0) g/dL Albumin (3.5-5.2) g/dL Urine Color Brown (YELLOW) Urine Appearance Cloudy (CLEAR) Urine pH 5.0 (5.0-6.5) Ur Specific [place] 1.020 (1.010-1.025) Urine Protein 30 H (NEGATIVE) mg/dL Urine Glucose (UA) Normal (NORMAL) mg/dL Urine Ketones 15 H (NEGATIVE) mg/dL Urine Occult Blood Large H (NEGATIVE) Urine Nitrite Negative (NEGATIVE) Urine Bilirubin Small H (NEGATIVE) Urine Urobilinogen 4 H (NEGATIVE) mg/dL Ur Leukocyte Esterase Small H (NEGATIVE) Urine RBC >100 H (0-5) Urine WBC 0-5 (0-5) Ur Squamous Epith Cells Occasional (NS,R,O) Calcium Oxalate Crystal Occasional H (NS) Amorphous Sediment Few Urine Bacteria Moderate H (NS) Fine Granular Casts Occasional H (NS) Urine Opiates Screen Negative (NEGATIVE) Ur Oxycodone Screen Negative (NEGATIVE) Ur Propoxyphene Screen Negative (NEGATIVE) Ur Barbituates Screen Negative (NEGATIVE) Ur Tricyclics Screen Negative (NEGATIVE) Ur Phencyclidine Scrn Negative (NEGATIVE) Ur Amphetamine Screen Negative (NEGATIVE) Urine MDMA Screen Negative (NEGATIVE) U Benzodiazepines Scrn Negative (NEGATIVE) U Cocaine Metab Screen Negative (NEGATIVE) U Marijuana (THC) Screen Negative (NEGATIVE) Meds: Medications Discontinued Medications Generic Name Dose Route Start Last Admin Trade Name Freq PRN Reason Stop Dose Admin Sodium Chloride 1,000 mls @ 999 mls/hr 04/15/19 23:47 04/16/19 00:15 Normal Saline IV 04/16/19 00:47 999 mls/hr .BOLUS ONE Administration Piperacillin Sod/Tazobactam 50 mls @ 100 mls/hr 04/16/19 01:15 04/16/19 01:25 Sod 3.375 gm/ Sodium Chloride IV 100 mls/hr Q6H NADYA Administration Sodium Chloride Confirm 04/16/19 01:06 04/16/19 01:25 Normal Saline Administered 04/16/19 01:07 Not Given Dose 50 mls @ as directed .ROUTE .STK-MED ONE Sodium Chloride 1,000 mls @ 999 mls/hr 04/16/19 01:25 04/16/19 01:25 Normal Saline IV 04/16/19 02:25 999 mls/hr .BOLUS ONE Administration Ketorolac Tromethamine 30 mg 04/16/19 00:05 04/16/19 00:15 Toradol IVPUSH 04/16/19 00:06 30 mg ONETIME ONE Administration Levofloxacin 500 mg 04/16/19 01:12 04/16/19 01:30 Levaquin PO 04/16/19 01:13 500 mg ONETIME ONE Administration Ondansetron HCl 8 mg 04/15/19 23:48 04/16/19 00:17 Zofran IVPUSH 04/15/19 23:49 8 mg ONETIME ONE Administration Oxycodone/Acetaminophen 1 tab 04/16/19 02:32 04/16/19 02:59 Percocet 325-5 Mg PO 04/16/19 02:33 1 tab ONETIME ONE Administration Tamsulosin HCl 0.4 mg 04/16/19 01:32 04/16/19 01:37 Flomax PO 04/16/19 01:33 0.4 mg ONETIME ONE Administration Departure - Departure Time of Disposition: 01:52 Disposition: Against Medical Advice 07 Condition: Good Clinical Impression: Urolithiasis Qualifiers: Urinary calculus location: upper urinary tract Qualified Code(s): N20.9 - Urinary calculus, unspecified UTI (urinary tract infection) Qualifiers: Urinary tract infection type: acute cystitis Hematuria presence: without hematuria Qualified Code(s): N30.00 - Acute cystitis without hematuria Toe fracture, left Qualifiers: Encounter type: initial encounter Toe: great toe Fracture type: closed Phalanx : distal Fracture alignment: displaced Qualified Code(s): S92.422A - Displaced fracture of distal phalanx of left great toe, initial encounter for closed fracture - Discharge Information Prescriptions: Acetaminophen/oxyCODONE [Percocet 325-5 MG] 1 each PO Q6HR PRN #12 tab PRN Reason: for severe pain only Ciprofloxacin HCl [Cipro] 500 mg PO BID #20 tablet Tamsulosin [Tamsulosin 24 Hr] 0.4 mg PO DAILY #4 cap.er Instructions: Piperacillin; Tazobactam injection, Toe Fracture, [id number], Acetaminophen; Oxycodone tablets, Ketorolac injection, Kidney Stones, Easy-to- Read, Urinary Tract Infection, Adult, [id number], Levofloxacin tablets, Tamsulosin capsules, How to Fady Tape Referrals: Hermelindo Mathews MD [Primary Care Provider] - Forms: ED Department Discharge Additional Instructions: Please increase water intake, Motin, Flomax, Cipro as recommended, Percocet for severe pain only. Please follow up with and urologist if your pain does not subside in 3-4 days, please come back if your symptoms get worse acutely, Please follow up with orthopedic doctor regarding your left big toe fracture. Keep toes fady taped. Walk on your heals, if possible
[2019-04-16] MEDS ORDERED: Ketorolac 30 MG/ML SDV IVPUSH ONE (00:05)
[2019-04-16] MEDS ORDERED: Sodium Chloride 0.9% 0 ML ONE (01:06)
[2019-04-16] MEDS ORDERED: Levofloxacin 500 MG Tab PO ONE (01:12)
[2019-04-16] MEDS ORDERED: Piperacillin/Tazobactam 3.375 GM in Sodium Chloride 0.9% 50 ML IV SCH (01:15)
[2019-04-16] MEDS ORDERED: Sodium Chloride 0.9% 1,000 ML IV ONE (01:25)
[2019-04-16] MEDS ORDERED: Tamsulosin 0.4 MG Cap.ER PO ONE (01:32)
[2019-04-16] MEDS ORDERED: Acetaminophen/oxyCODONE 325-5 MG Tab PO ONE (02:32)
[2019-04-16 04:25] VITALS: BP 134/87; PULSE 102
== END 2019-04-16 03:19 | disposition left against medical advice (07) ==
LOC: FB.ED 23:35
DX: S92.422A Displaced fracture of distal phalanx of left great toe, initial encounter for closed fracture (principal); R56.9 Unspecified convulsions; N20.9 Urinary calculus, unspecified; E83.42 Hypomagnesemia; N30.00 Acute cystitis without hematuria; I10 Essential (primary) hypertension; R74.0 Nonspecific elevation of levels of transaminase and lactic acid dehydrogenase [LDH]; F41.9 Anxiety disorder, unspecified; Z90.81 Acquired absence of spleen; Z87.09 Personal history of other diseases of the respiratory system; Z79.899 Other long term (current) drug therapy; Z53.20 Procedure and treatment not carried out because of patient's decision for unspecified reasons; X58.XXXA Exposure to other specified factors, initial encounter; F32.9 Major depressive disorder, single episode, unspecified
CPT/HCPCS: 36415; 70450; 73660; 74176; 80048; 80076; 80305; 81001; 82550; 83605; 83735; 84484; 85025; 87040; 87086; 93005; 96361; 96365; 96375; 99284; 99285; A9270; G0480; J1200; J1885; J2060; J2405; J2543; J3475; J7030; J7050

== ENCOUNTER 2019-04-16 12:45 | Emergency (ER) | payer BC ==
--- NOTE | 2019-04-16 13:02 | EDM.PDOC ---
ED HPI GENERAL MEDICAL PROBLEM - General Stated Complaint: CHEST PAIN Time Seen by Provider: 04/16/19 12:45 Source of Information: Reports: Patient History Limitations: Reports: Altered Mental Status - History of Present Illness INITIAL COMMENTS - FREE TEXT/NARRATIVE: 34 y.o.w.m with a H/O Sarcoidosis, came last night to the ED because of left flank pain. CT showed mild hydronephrosis and 2 k stones prox ureter. Pt's Lactic acid was 6.7, pt was very anxious. Pt received in the ED Toradol, Flomax and Percocet. Pt signed out AMA, refused admission. Pt walked in the ED at about 6.45 am complaining of severe H/A and chest pain. As I arrived at he scene , pt was on the floor, the nurse applied a Nonrebreather mask which he tried to get off. He tried to "fight everybody off". This episode was lasting about 2-3 minutes. Then he was talking and was kind of cooperative, Shortly after which he again was unresponsive and tried to " fight". It appeared, he was not responding to verbal stimuli for about a minute. Then suddenly, he was cooperative and made it by himself into the bed. Finally 2 mg Ativan could be given. He was not "seizing" at the time the Ativan was given. No tongue no wet underwear. Pt was confused after the even not remembering his visit in the ED in paper [place] for kidney stone. 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 BP 106/65 RR 23 Pulse ox 100% on 15 lo NRNB mask? Pulse 120 Temp 36.8 Onset Date: 04/16/19 Onset Time: 12:05 Duration: Minutes: Location: Reports: Head Quality: Reports: Dull Severity: Moderate Improves with: Reports: None Worsens with: Reports: None Context: Reports: Other (TC Seizure) Associated Symptoms: Reports: Confusion mid chest Pain Score (Numeric/FACES): 8 - Related Data Allergies Allergy/AdvReac Type Severity Reaction Status Date / Time No Known Allergies Allergy Verified 04/16/19 14:20 Home Meds: Home Meds Ondansetron [Zofran ODT] 4 mg PO Q6H PRN #20 tab.dis 11/29/16 [Rx] Acetaminophen/oxyCODONE [Percocet 325-5 MG] 1 each PO Q6HR PRN #12 tab 04/16/19 [Rx] Ciprofloxacin HCl [Cipro] 500 mg PO BID #20 tablet 04/16/19 [Rx] Metoprolol Succinate [Toprol Xl] 50 mg PO DAILY 04/16/19 [History] Tamsulosin [Tamsulosin 24 Hr] 0.4 mg PO DAILY #4 cap.er 04/16/19 [Rx] Valsartan 80 mg BEDTIME 04/16/19 [History] Past Medical History - Past Health History Medical/Surgical History: Denies Medical/Surgical History Cardiovascular History: Reports: Hypertension, SOB on Exertion Musculoskeletal History: Reports: Fracture Other Musculoskeletal History: hx fx L fx ribs Neurological History: Reports: Concussion Psychiatric History: Reports: Anxiety, Depression Hematologic History: Reports: Blood Transfusion(s) Immunologic History: Reports: Other (See Below) Other Immunologic History: spleen enlarged 2005- Unknown cause? - Infectious Disease History Infectious Disease History: Reports: Chicken Pox - Past Surgical History Head Surgeries/Procedures: Reports: None Social & Family History - Family History Family Medical History: Noncontributory Respiratory: Reports: Other (See Below) Other Respiratory Family Hisory: father- resp failures, mrsa pneum, tracheostomy in place, : Reports: Other (See Below) Other Family History: father- endocrine disorders, Musculoskeletal: Reports: Other (See Below) Other Musculoskeletal Family History: father- quadaparesis (muscle weakness), peripheral neuropathy Neurological: Reports: Neuropathy, Peripheral, Other (See Below) Other Neurological Family History: father- menningitis, headaches, Psychiatric: Reports: Other (See Below) Other Psychiatric Family History: father- anxiety related to his failing health, Other Endocrine/Metabolic Family History: father- endocrine disorder Immunologic: Reports: Other (See Below) Other Immunologic Family History: father- metabolic, immunity disorders, MSSA septicemia - Caffeine Use Caffeine Use: Reports: Soda ED ROS GENERAL - Review of Systems Review Of Systems: Unable To Obtain (Seizure) ED EXAM, NEURO - Physical Exam Exam: See Below Exam Limited By: Altered Mental Status General Appearance: Alert, WD/WN, Lethargic Eye Exam: Bilateral Eye: Normal Inspection Ears: Normal External Exam Nose: Normal Inspection Throat/Mouth: Normal Inspection, Normal Lips, Normal Voice Head Exam: Atraumatic, Normocephalic Neck: Normal Inspection, Supple, Non-Tender Respiratory/Chest: No Respiratory Distress, Lungs Clear, Normal Breath Sounds Cardiovascular: Normal Peripheral Pulses, Regular Rate, Rhythm, No Edema, No Gallop GI/Abdominal: Normal Bowel Sounds, Soft, Non-Tender, No Organomegaly (Male) Exam: Deferred Rectal (Males) Exam: Deferred Neurological: Tremor, Other (postictal, confused) Back Exam: Normal Inspection, Full Range of Motion Extremities: Normal Inspection, Normal Range of Motion, Non-Tender Psychiatric: Anxious Skin Exam: Warm, Dry, Intact, Normal Color EKG INTERPRETATION EKG Date: 04/16/19 Time: 12:55 Rhythm: NSR Rate (Beats/Min): 118 [place]: Normal P-Wave: Present QRS: Normal ST-T: Normal QT: Normal Comparison: NA - No Prior EKG Course - Vital Signs Text/Narrative:: 34 y.o.w.m with a H/O Sarcoidosis, came last night to the ED because of left flank pain. CT showed mild hydronephrosis and 2 k stones prox ureter. Pt's Lactic acid was 6.7, pt was very anxious. Pt received in the ED Toradol, Flomax and Percocet. Pt signed out AMA, refused admission. Pt walked in the ED at about 6.45 am complaining of severe H/A and chest pain. As I arrived at the scene, pt was on the floor, the nurse applied a Nonrebreather mask which he tried to get off. He tried to "fight everybody off". This episode was lasting about 2-3 minutes. Then he was talking and was kind of cooperative.Shortly after which he again was unresponsive of a few sec and then again had uncontrolled movement of his extremities. It appeared, he was not responding to verbal stimuli for about a minute. Then suddenly, he was cooperative and made it by himself into the bed. Finally 2 mg Ativan could be given. He was not "seizing" at the time the Ativan was given. No tongue no wet underwear. Pt was confused after the even not remembering his visit in the ED in paper [place] for kidney stone. 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 BP 106/65 RR 23 Pulse ox 100% on 15 lo NRNB mask? Pulse 120 Temp 36.8 PE: WNWD WM with a h/O Sarcoidosis, H/O ETOH use. Shaking started after quitting ETOH entirely in the "past few weeks". Drug screen in paper supervisor was entirely neg Imaging: CT head: NAD Labs: Cr 2.1 lactic acid 2.9 GFR 39 UDS pos for Amphetamine and oxy codon ( pt was given Percocet in am for kidney stones) WBC nl HGB 13.6 Impression: New Seizure like symptom, UDS Pos Amphetamine, hypomagnesia, elevated lactic acid, EF 39% as per Angela notes, DDX ETOH withdrawal Tx: Sz precautions. Ativan, NS, Benadryl, 2 gm Mg. Reexam: On transfer, BP 123/89 RR 18 Pulse ox 98% on RA Temp 36,8 HR 106. Pt was calm, cooperative, no tongue bite or wet underwear seen. 2.22 pm Consultation: Dr. Barron, Hospitalist, [facility]: Repeat Lactic acid (was 2.9), accepted the pt for transfer and further care Plan: Transfer to [facility] by EMS ground Last Recorded V/S: Last Vital Signs Temp 36.7 C 04/16/19 16:00 Pulse 99 04/16/19 16:00 Resp 16 04/16/19 16:00 BP 125/70 04/16/19 16:00 Pulse Ox 97 04/16/19 16:00 - Orders/Labs/Meds Orders: Active Orders 24 hr Category Date Time Status EKG Documentation Completion [RC] ASDIRECTED Care 04/16/19 22:03 Active Positioning, Left Lateral [RC] ASDIRECTED Care 04/16/19 13:07 Active Head wo Cont [CT] Stat Exams 04/16/19 13:29 Taken Seizure Precautions [OM.PC] Routine Oth 04/16/19 13:05 Ordered EKG 12 Lead [EK] Routine Ther 04/16/19 12:58 Ordered Labs: Laboratory Tests 04/16/19 04/16/19 04/16/19 Range/Units 13:10 13:10 13:10 WBC 10.7 (4.5-12.0) X10-3/uL RBC 3.72 L (4.30-5.75) x10(6)uL Hgb 13.1 L (13.5-17.8) g/dL Hct 38.1 (30.0-51.3) % MCV 102.3 H (80-96) fL MCH 35.1 H (27.7-33.6) pg MCHC 34.3 (32.2-35.4) g/dL RDW 13.5 (11.5-15.5) % Plt Count 189 (125-369) X10(3)uL MPV 7.8 (7.4-10.4) fL Neut % (Auto) 69.1 (46-82) % Lymph % (Auto) 16.8 (13-37) % [place]ron % (Auto) 13.6 H (4-12) % Eos % (Auto) 0 L (1.0-5.0) % Baso % (Auto) 1 (0-2) % Neut # (Auto) 7.3 (1.6-8.3) # Lymph # (Auto) 1.8 (0.6-5.0) # Catron # (Auto) 1.4 H (0.0-1.3) # Eos # (Auto) 0.0 (0.0-0.8) # Baso # (Auto) 0.1 (0.0-0.2) # Sodium 142 (135-145) mmol/L Potassium 3.7 (3.5-5.3) mmol/L Chloride 99 L (100-110) mmol/L Carbon Dioxide 16 L (21-32) mmol/L BUN 16 (7-18) mg/dL Creatinine 2.1 H* (0.70-1.30) mg/dL Est Cr Clr Drug Dosing TNP Estimated GFR (MDRD) 37 L (>60) BUN/Creatinine Ratio 7.6 L (9-20) Glucose 174 H (80-116) mg/dL Lactic Acid (0.4-2.2) mmol/L Calcium 8.2 L (8.6-10.2) mg/dL Magnesium (1.8-2.5) mg/dL Creatine Kinase (60-160) IU/L Troponin I (<0.017-0.056) ng/mL Urine Opiates Screen (NEGATIVE) Ur Oxycodone Screen (NEGATIVE) Ur Propoxyphene Screen (NEGATIVE) Ur Barbituates Screen (NEGATIVE) Ur Tricyclics Screen (NEGATIVE) Ur Phencyclidine Scrn (NEGATIVE) Ur Amphetamine Screen (NEGATIVE) Urine MDMA Screen (NEGATIVE) U Benzodiazepines Scrn (NEGATIVE) U Cocaine Metab Screen (NEGATIVE) U Marijuana (THC) Screen (NEGATIVE) Ethyl Alcohol < 0.03 (<0.03) % 04/16/19 04/16/19 04/16/19 Range/Units 13:10 13:10 13:10 WBC (4.5-12.0) X10-3/uL RBC (4.30-5.75) x10(6)uL Hgb (13.5-17.8) g/dL Hct (30.0-51.3) % MCV (80-96) fL MCH (27.7-33.6) pg MCHC (32.2-35.4) g/dL RDW (11.5-15.5) % Plt Count (125-369) X10(3)uL MPV (7.4-10.4) fL Neut % (Auto) (46-82) % Lymph % (Auto) (13-37) % Catron % (Auto) (4-12) % Eos % (Auto) (1.0-5.0) % Baso % (Auto) (0-2) % Neut # (Auto) (1.6-8.3) # Lymph # (Auto) (0.6-5.0) # Catron # (Auto) (0.0-1.3) # Eos # (Auto) (0.0-0.8) # Baso # (Auto) (0.0-0.2) # Sodium (135-145) mmol/L Potassium (3.5-5.3) mmol/L Chloride (100-110) mmol/L Carbon Dioxide (21-32) mmol/L BUN (7-18) mg/dL Creatinine (0.70-1.30) mg/dL Est Cr Clr Drug Dosing Estimated GFR (MDRD) (>60) BUN/Creatinine Ratio (9-20) Glucose (80-116) mg/dL Lactic Acid (0.4-2.2) mmol/L Calcium (8.6-10.2) mg/dL Magnesium 1.2 L* (1.8-2.5) mg/dL Creatine Kinase 228 H (60-160) IU/L Troponin I < 0.017 L (<0.017-0.056) ng/mL Urine Opiates Screen (NEGATIVE) Ur Oxycodone Screen (NEGATIVE) Ur Propoxyphene Screen (NEGATIVE) Ur Barbituates Screen (NEGATIVE) Ur Tricyclics Screen (NEGATIVE) Ur Phencyclidine Scrn (NEGATIVE) Ur Amphetamine Screen (NEGATIVE) Urine MDMA Screen (NEGATIVE) U Benzodiazepines Scrn (NEGATIVE) U Cocaine Metab Screen (NEGATIVE) U Marijuana (THC) Screen (NEGATIVE) Ethyl Alcohol (<0.03) % 04/16/19 04/16/19 Range/Units 14:07 14:45 WBC (4.5-12.0) X10-3/uL RBC (4.30-5.75) x10(6)uL Hgb (13.5-17.8) g/dL Hct (30.0-51.3) % MCV (80-96) fL MCH (27.7-33.6) pg MCHC (32.2-35.4) g/dL RDW (11.5-15.5) % Plt Count (125-369) X10(3)uL MPV (7.4-10.4) fL Neut % (Auto) (46-82) % Lymph % (Auto) (13-37) % [place]ron % (Auto) (4-12) % Eos % (Auto) (1.0-5.0) % Baso % (Auto) (0-2) % Neut # (Auto) (1.6-8.3) # Lymph # (Auto) (0.6-5.0) # [place]ron # (Auto) (0.0-1.3) # Eos # (Auto) (0.0-0.8) # Baso # (Auto) (0.0-0.2) # Sodium (135-145) mmol/L Potassium (3.5-5.3) mmol/L Chloride (100-110) mmol/L Carbon Dioxide (21-32) mmol/L BUN (7-18) mg/dL Creatinine (0.70-1.30) mg/dL Est Cr Clr Drug Dosing Estimated GFR (MDRD) (>60) BUN/Creatinine Ratio (9-20) Glucose (80-116) mg/dL Lactic Acid 2.9 H (0.4-2.2) mmol/L Calcium (8.6-10.2) mg/dL Magnesium (1.8-2.5) mg/dL Creatine Kinase (60-160) IU/L Troponin I (<0.017-0.056) ng/mL Urine Opiates Screen Negative (NEGATIVE) Ur Oxycodone Screen Positive (NEGATIVE) Ur Propoxyphene Screen Negative (NEGATIVE) Ur Barbituates Screen Negative (NEGATIVE) Ur Tricyclics Screen Negative (NEGATIVE) Ur Phencyclidine Scrn Negative (NEGATIVE) Ur Amphetamine Screen Positive H (NEGATIVE) Urine MDMA Screen Negative (NEGATIVE) U Benzodiazepines Scrn Negative (NEGATIVE) U Cocaine Metab Screen Negative (NEGATIVE) U Marijuana (THC) Screen Negative (NEGATIVE) Ethyl Alcohol (<0.03) % Meds: Medications Discontinued Medications Generic Name Dose Route Start Last Admin Trade Name Freq PRN Reason Stop Dose Admin Diphenhydramine HCl 25 mg 04/16/19 14:19 04/16/19 14:25 Benadryl IVPUSH 04/16/19 14:20 25 mg ONETIME ONE Administration Sodium Chloride 1,000 mls @ 999 mls/hr 04/16/19 13:04 04/16/19 13:31 Normal Saline IV 04/16/19 14:04 999 mls/hr .BOLUS ONE Administration Magnesium Sulfate 2 gm/ Premix 50 mls @ 150 mls/hr 04/16/19 13:56 04/16/19 14 :05 IV 04/16/19 14:15 150 mls/hr ONETIME ONE Administration Sodium Chloride 1,000 mls @ 125 mls/hr 04/16/19 14:30 04/16/19 14:30 Normal Saline IV 125 mls/hr ASDIRECTED NADYA Administration Lorazepam 2 mg 04/16/19 13:10 04/16/19 12:53 Ativan IVPUSH 04/16/19 13:11 2 mg ONETIME STA Administration Departure - Departure Time of Disposition: 15:59 Disposition: DC/Tfer to Acute Hospital 02 Condition: Fair Clinical Impression: Seizure - Discharge Information Referrals: PCP,None [Ordering Only Provider] - Forms: ED Department Discharge - My Orders Last 24 Hours: My Active Orders 04/16/19 12:58 EKG 12 Lead [EK] Routine 04/16/19 13:05 Seizure Precautions [OM.PC] Routine 04/16/19 13:07 Positioning, Left Lateral [RC] ASDIRECTED 04/16/19 13:29 Head wo Cont [CT] Stat 04/16/19 22:03 EKG Documentation Completion [RC] ASDIRECTED - Assessment/Plan Last 24 Hours: My Active Orders 04/16/19 12:58 EKG 12 Lead [EK] Routine 04/16/19 13:05 Seizure Precautions [OM.PC] Routine 04/16/19 13:07 Positioning, Left Lateral [RC] ASDIRECTED 04/16/19 13:29 Head wo Cont [CT] Stat 04/16/19 22:03 EKG Documentation Completion [RC] ASDIRECTED
[2019-04-16] MEDS ORDERED: Sodium Chloride 0.9% 1,000 ML IV ONE (13:04)
[2019-04-16] MEDS ORDERED: LORazepam 2 MG/ML SDV IVPUSH STA (13:10)
[2019-04-16] MEDS ORDERED: Magnesium Sulfate/Water 2 GM in Premix Bag 1 BAG IV ONE (13:56)
[2019-04-16] MEDS ORDERED: diphenhydrAMINE 50 MG/ML SDV IVPUSH ONE (14:19)
[2019-04-16] MEDS ORDERED: Sodium Chloride 0.9% 1,000 ML IV SCH (14:30)
[2019-04-16 19:25] VITALS: BP 125/70; PULSE 99
== END 2019-04-16 16:04 ==
LOC: FB.ED 12:45
DX: R56.9 Unspecified convulsions (principal); E83.42 Hypomagnesemia; R74.0 Nonspecific elevation of levels of transaminase and lactic acid dehydrogenase [LDH]; I10 Essential (primary) hypertension; F41.9 Anxiety disorder, unspecified; F32.9 Major depressive disorder, single episode, unspecified; Z79.899 Other long term (current) drug therapy
CPT/HCPCS: 36415; 70450; 80048; 80305; 82550; 83605; 83735; 84484; 85025; 93005; 96361; 96365; 96375; 99285; G0480; J1200; J2060; J3475; J7030

== ENCOUNTER 2019-05-03 18:00 | Observation (INO) | payer BC ==
--- NOTE | 2019-05-03 18:32 | EDM.PDOC ---
ED HPI GENERAL MEDICAL PROBLEM - General Chief Complaint: General Stated Complaint: SOB AND DIGESTIVE ISSUES Time Seen by Provider: 05/03/19 18:32 Source of Information: Reports: Patient, Old Records History Limitations: Reports: No Limitations - History of Present Illness INITIAL COMMENTS - FREE TEXT/NARRATIVE: patient presents today with concern for feeling lightheaded and slightly short of breath since 2 PM this afternoon. He states he been nauseous all day, and then started vomiting and it looked dark like there was some coffee grounds. He also had diarrhea today, probably up to 10 episodes, initially it was black like tar, now it seems to be clear. 1 reddish clot but no additional. He has a slight sore throat, but he thinks is from vomiting. He does not have a headache or change in vision. He's had no symptoms of her recent upper respiratory tract infection, no cough, no chest pain, no urinary symptoms or pain in his back or flank. He does note that the skin around his groin has had some breakdown recently he thinks from the diarrhea. he denies any abdominal pain at this time , and does not have any recent heartburn symptoms. He was at the start of this month evaluated here than left AMA, returning the next day and was altered and shipped to [place]. Diagnosis at that time was alcohol withdrawal and bilateral nephrolithiasis. He was adamant regarding discharge the morning of 04/17 which was one day after he was admitted. His past medical history is significant for alcohol use disorder, splenectomy, and nephrolithiasis. He does report one episode a few months ago where he had a slight black stool and was reading on the Internet about it, so stopped the use of ibuprofen for some time. He has been prescribed ibuprofen recently taking up to 800 mg per day. - Related Data Allergies Allergy/AdvReac Type Severity Reaction Status Date / Time No Known Allergies Allergy Verified 04/16/19 14:20 Home Meds: Home Meds Ondansetron [Zofran ODT] 4 mg PO Q6H PRN #20 tab.dis 11/29/16 [Rx] Acetaminophen/oxyCODONE [Percocet 325-5 MG] 1 each PO Q6HR PRN #12 tab 04/16/19 [Rx] Ciprofloxacin HCl [Cipro] 500 mg PO BID #20 tablet 04/16/19 [Rx] Metoprolol Succinate [Toprol Xl] 50 mg PO DAILY 04/16/19 [History] Tamsulosin [Tamsulosin 24 Hr] 0.4 mg PO DAILY #4 cap.er 04/16/19 [Rx] Valsartan 80 mg BEDTIME 04/16/19 [History] Past Medical History Cardiovascular History: Reports: Hypertension, SOB on Exertion Respiratory History: Reports: Other (See Below) Other Respiratory History: pulmonary sarcoidosis Gastrointestinal History: Reports: Cholelithiasis Genitourinary History: Reports: Renal Calculus Musculoskeletal History: Reports: Fracture Other Musculoskeletal History: hx fx L fx ribs Neurological History: Reports: Concussion Psychiatric History: Reports: Anxiety, Depression Hematologic History: Reports: Blood Transfusion(s) Immunologic History: Reports: Other (See Below) Other Immunologic History: spleen enlarged 2005- Unknown cause? - Infectious Disease History Infectious Disease History: Reports: Chicken Pox - Past Surgical History Head Surgeries/Procedures: Reports: None Other Surgical History Comment: splenectomy Social & Family History - Family History Family Medical History: Noncontributory Respiratory: Reports: Other (See Below) Other Respiratory Family Hisory: father- resp failures, mrsa pneum, tracheostomy in place, : Reports: Other (See Below) Other Family History: father- endocrine disorders, Musculoskeletal: Reports: Other (See Below) Other Musculoskeletal Family History: father- quadaparesis (muscle weakness), peripheral neuropathy Neurological: Reports: Neuropathy, Peripheral, Other (See Below) Other Neurological Family History: father- menningitis, headaches, Psychiatric: Reports: Other (See Below) Other Psychiatric Family History: father- anxiety related to his failing health, Other Endocrine/Metabolic Family History: father- endocrine disorder Immunologic: Reports: Other (See Below) Other Immunologic Family History: father- metabolic, immunity disorders, MSSA septicemia - Tobacco Use Smoking Status *Q: Former Smoker Tobacco Use Within Last Twelve Months: Other (See Below) Tobacco Use Comment: recently quit using chew - Caffeine Use Caffeine Use: Reports: Soda ED ROS GENERAL - Review of Systems Review Of Systems: ROS reveals no pertinent complaints other than HPI. ED EXAM, GENERAL - Physical Exam Exam: See Below Free Text/Narrative:: Gen.: Alert, very pleasant no acute distress. Slight generalized tremor noted. Head is atraumatic, pupils are equal and reactive, throat was without erythema. Mucous members are moist. neck is supple. Heart is regular rate and rhythm and bordering on tachycardia. Lungs are clear throughout with no wheezes or crackles. abdomen positive bowel sounds, soft nondistended nontender with no rebound or guarding. No peritoneal signs. Peripheral pulses +2 in both the upper and lower extremities and he has no lower extremity edema. exam shows generalized skin breakdown in the perineal area, slight underlying erythema but not really tender. Some satellite lesions suggestive of possible candidiasis. No involvement of scrotum or penis. No groin tenderness. Skin is otherwise without lesions or morrison. Psych: Mood and affect are appropriate, he makes good eye contact answers questions appropriately, insight poor. No evidence of paranoia or hallucinations Course - Vital Signs Text/Narrative:: initial impression - concern for UGIB (upper GI bleed) given history of ETOH use. Also risk for gastric ulcers with NSAID and ETOH use. Has had one episode prior he reports a few months ago which self resolved. possible EGD in October, records not available labs ordered, blood bank hold patient hemodynamically stable at this time - only slight tachycardia EKG and CXR ordered for SOB will request records from [place] from previous hospitalization Last Recorded V/S: Last Vital Signs Temp 36.2 C 05/03/19 18:00 Pulse 107 H 05/03/19 18:00 Resp 18 05/03/19 18:00 BP 120/95 H 05/03/19 18:00 Pulse Ox 100 05/03/19 18:00 - Orders/Labs/Meds Orders: Active Orders 24 hr Category Date Time Status EKG Documentation Completion [RC] ASDIRECTED Care 05/03/19 18:26 Active CXR [Chest 2V] [CR] Stat Exams 05/03/19 18:26 Taken BLOOD BANK HOLD SPECIMEN [BBK] Stat Lab 05/03/19 18:36 Received CULTURE BLOOD [BC] Urgent Lab 05/03/19 18:36 Received CULTURE BLOOD [BC] Urgent Lab 05/03/19 18:44 Received Sodium Chloride 0.9% [Normal Saline] 1,000 ml Med 05/03/19 19:30 Active IV ASDIRECTED Blood Culture x2 Reflex Set [OM.PC] Urgent Oth 05/03/19 18:26 Ordered EKG 12 Lead [EK] Routine Ther 05/03/19 18:26 Ordered Medication Orders Sodium Chloride (Normal Saline) 1,000 mls @ 500 mls/hr IV ASDIRECTED NADYA Last Admin: 05/03/19 19:48 Dose: 500 mls/hr Labs: Laboratory Tests 05/03/19 05/03/19 05/03/19 Range/Units 18:36 18:36 18:36 WBC 10.3 (4.5-12.0) X10-3/uL RBC 2.95 L (4.30-5.75) x10(6)uL Hgb 10.8 L (13.5-17.8) g/dL Hct 31.0 (30.0-51.3) % MCV 105.2 H (80-96) fL MCH 36.5 H (27.7-33.6) pg MCHC 34.7 (32.2-35.4) g/dL RDW 14.8 (11.5-15.5) % Plt Count 430 H (125-369) X10(3)uL MPV 7.9 (7.4-10.4) fL Neut % (Auto) 76.6 (46-82) % Lymph % (Auto) 13.2 (13-37) % [place] % (Auto) 9.2 (4-12) % Eos % (Auto) 0 L (1.0-5.0) % Baso % (Auto) 1 (0-2) % Neut # (Auto) 7.9 (1.6-8.3) # Lymph # (Auto) 1.4 (0.6-5.0) # [place] # (Auto) 0.9 (0.0-1.3) # Eos # (Auto) 0.0 (0.0-0.8) # Baso # (Auto) 0.1 (0.0-0.2) # PT (8.7-11.1) INR (0.89-1.13) Sodium 140 (135-145) mmol/L Potassium 3.6 (3.5-5.3) mmol/L Chloride 100 (100-110) mmol/L Carbon Dioxide 30 (21-32) mmol/L BUN 29 H D (7-18) mg/dL Creatinine 1.1 (0.70-1.30) mg/dL Est Cr Clr Drug Dosing TNP Estimated GFR (MDRD) > 60 (>60) BUN/Creatinine Ratio 26.4 H (9-20) Glucose 109 (80-116) mg/dL Lactic Acid 1.3 (0.4-2.2) mmol/L Calcium 8.6 (8.6-10.2) mg/dL Magnesium 1.1 L* (1.8-2.5) mg/dL Total Bilirubin 1.0 (0.1-1.3) mg/dL AST 55 H D (5-25) IU/L ALT 41 H D (12-36) U/L Alkaline Phosphatase 149 H (56-112) IU/L Total Protein 6.0 (6.0-8.0) g/dL Albumin 2.7 L (3.5-5.2) g/dL Globulin 3.3 g/dL Albumin/Globulin Ratio 0.8 Amylase (25-115) U/L Urine Color (YELLOW) Urine Appearance (CLEAR) Urine pH (5.0-6.5) Ur Specific [place] (1.010-1.025) Urine Protein (NEGATIVE) mg/dL Urine Glucose (UA) (NORMAL) mg/dL Urine Ketones (NEGATIVE) mg/dL Urine Occult Blood (NEGATIVE) Urine Nitrite (NEGATIVE) Urine Bilirubin (NEGATIVE) Urine Urobilinogen (NEGATIVE) mg/dL Ur Leukocyte Esterase (NEGATIVE) Urine RBC (0-5) Urine WBC (0-5) Ur Squamous Epith Cells (NS,R,O) Urine Bacteria (NS) Ethyl Alcohol (<0.03) % 05/03/19 05/03/19 05/03/19 Range/Units 18:36 18:36 18:36 WBC (4.5-12.0) X10-3/uL RBC (4.30-5.75) x10(6)uL Hgb (13.5-17.8) g/dL Hct (30.0-51.3) % MCV (80-96) fL MCH (27.7-33.6) pg MCHC (32.2-35.4) g/dL RDW (11.5-15.5) % Plt Count (125-369) X10(3)uL MPV (7.4-10.4) fL Neut % (Auto) (46-82) % Lymph % (Auto) (13-37) % [place] % (Auto) (4-12) % Eos % (Auto) (1.0-5.0) % Baso % (Auto) (0-2) % Neut # (Auto) (1.6-8.3) # Lymph # (Auto) (0.6-5.0) # [place] # (Auto) (0.0-1.3) # Eos # (Auto) (0.0-0.8) # Baso # (Auto) (0.0-0.2) # PT 10.7 (8.7-11.1) INR 1.10 (0.89-1.13) Sodium (135-145) mmol/L Potassium (3.5-5.3) mmol/L Chloride (100-110) mmol/L Carbon Dioxide (21-32) mmol/L BUN (7-18) mg/dL Creatinine (0.70-1.30) mg/dL Est Cr Clr Drug Dosing Estimated GFR (MDRD) (>60) BUN/Creatinine Ratio (9-20) Glucose (80-116) mg/dL Lactic Acid (0.4-2.2) mmol/L Calcium (8.6-10.2) mg/dL Magnesium (1.8-2.5) mg/dL Total Bilirubin (0.1-1.3) mg/dL AST (5-25) IU/L ALT (12-36) U/L Alkaline Phosphatase (56-112) IU/L Total Protein (6.0-8.0) g/dL Albumin (3.5-5.2) g/dL Globulin g/dL Albumin/Globulin Ratio Amylase 18 L (25-115) U/L Urine Color (YELLOW) Urine Appearance (CLEAR) Urine pH (5.0-6.5) Ur Specific [place] (1.010-1.025) Urine Protein (NEGATIVE) mg/dL Urine Glucose (UA) (NORMAL) mg/dL Urine Ketones (NEGATIVE) mg/dL Urine Occult Blood (NEGATIVE) Urine Nitrite (NEGATIVE) Urine Bilirubin (NEGATIVE) Urine Urobilinogen (NEGATIVE) mg/dL Ur Leukocyte Esterase (NEGATIVE) Urine RBC (0-5) Urine WBC (0-5) Ur Squamous Epith Cells (NS,R,O) Urine Bacteria (NS) Ethyl Alcohol < 0.03 (<0.03) % 05/03/19 Range/Units 19:28 WBC (4.5-12.0) X10-3/uL RBC (4.30-5.75) x10(6)uL Hgb (13.5-17.8) g/dL Hct (30.0-51.3) % MCV (80-96) fL MCH (27.7-33.6) pg MCHC (32.2-35.4) g/dL RDW (11.5-15.5) % Plt Count (125-369) X10(3)uL MPV (7.4-10.4) fL Neut % (Auto) (46-82) % Lymph % (Auto) (13-37) % [place] % (Auto) (4-12) % Eos % (Auto) (1.0-5.0) % Baso % (Auto) (0-2) % Neut # (Auto) (1.6-8.3) # Lymph # (Auto) (0.6-5.0) # [place] # (Auto) (0.0-1.3) # Eos # (Auto) (0.0-0.8) # Baso # (Auto) (0.0-0.2) # PT (8.7-11.1) INR (0.89-1.13) Sodium (135-145) mmol/L Potassium (3.5-5.3) mmol/L Chloride (100-110) mmol/L Carbon Dioxide (21-32) mmol/L BUN (7-18) mg/dL Creatinine (0.70-1.30) mg/dL Est Cr Clr Drug Dosing Estimated GFR (MDRD) (>60) BUN/Creatinine Ratio (9-20) Glucose (80-116) mg/dL Lactic Acid (0.4-2.2) mmol/L Calcium (8.6-10.2) mg/dL Magnesium (1.8-2.5) mg/dL Total Bilirubin (0.1-1.3) mg/dL AST (5-25) IU/L ALT (12-36) U/L Alkaline Phosphatase (56-112) IU/L Total Protein (6.0-8.0) g/dL Albumin (3.5-5.2) g/dL Globulin g/dL Albumin/Globulin Ratio Amylase (25-115) U/L Urine Color Yellow (YELLOW) Urine Appearance Clear (CLEAR) Urine pH 6.5 (5.0-6.5) Ur Specific [place] 1.010 (1.010-1.025) Urine Protein Negative (NEGATIVE) mg/dL Urine Glucose (UA) Normal (NORMAL) mg/dL Urine Ketones Negative (NEGATIVE) mg/dL Urine Occult Blood Moderate (NEGATIVE) Urine Nitrite Negative (NEGATIVE) Urine Bilirubin Negative (NEGATIVE) Urine Urobilinogen 0.2 (NEGATIVE) mg/dL Ur Leukocyte Esterase Negative (NEGATIVE) Urine RBC 5-10 H (0-5) Urine WBC 0-5 (0-5) Ur Squamous Epith Cells Few H (NS,R,O) Urine Bacteria Few H (NS) Ethyl Alcohol (<0.03) % Meds: Medications Generic Name Dose Route Start Last Admin Trade Name Freq PRN Reason Stop Dose Admin Sodium Chloride 1,000 mls @ 500 mls/hr 05/03/19 19:30 05/03/19 19:48 Normal Saline IV 500 mls/hr ASDIRECTED NADYA Administration Discontinued Medications Generic Name Dose Route Start Last Admin Trade Name Freq PRN Reason Stop Dose Admin Magnesium Sulfate 2 gm/ Premix 50 mls @ 150 mls/hr 05/03/19 19:05 05/03/19 19 :20 IV 05/03/19 19:24 150 mls/hr ONETIME ONE Administration - Re-Assessments/Exams Free Text/Narrative Re-Assessment/Exam: 05/03/19 EKG prolonged QTc, otherwise normal, mag ordered CXR no acute findings initial labs returned - hemoglobin dropped from prior, although still 10.8 Mag critically low. Rest of electrolytes and renal function ok. Slightly elevated BUN. UA negative except for trace blood [facility] records reviewed. No EGD seen. discussed with patient. He is absolutely insistent he did not drink in the last two weeks. Quit chewing as well. Does not want transfer to [place], states he would go home, but willing to stay here overnight for monitoring. Discussed that we have limited resources here. Will discuss with [facility]. Free Text/Narrative Re-Assessment/Exam: 05/03/19 records reviewed with [facility]. No record of EGD found - had bronch in october for Hilar lymph node. RUQ US in November showed fatty liver and cholelithiasis - one small stone, no duct dilation. Discussed these results with patient, strongly recommend transfer. He again refuses. Given circumstances, I agreed to admit here for monitoring, after patient able to express understanding of risks including possible if he were to have a variceal bleed. Probably better than discharging at least. Admit orders: Observation Protonix 40mg IV Pepcid 20mg IV IVF overnight telemetry monitoring with call parameters soft diet ok, no red foods monitor for ETOH withdrawal - patient with some tremor at baseline skin barrier cream for groin rash small dose 12.5mg metoprolol given to prevent beta-yovana withdrawal (normally takes 50mg BID) repeat Hb in morning, likely will drop some, but if stable with no further evidence blood loss hopefully discharge no anticoagulants or NSAIDs recommend outpatient EGD Departure - Departure Time of Disposition: 21:28 Disposition: Admitted As Inpatient 67 Condition: Fair Clinical Impression: GI bleed, Anemia, Alcohol use disorder - Discharge Information *PRESCRIPTION DRUG MONITORING PROGRAM REVIEWED*: Not Applicable *COPY OF PRESCRIPTION DRUG MONITORING REPORT IN PATIENT ELLIE: Not Applicable - My Orders Last 24 Hours: My Active Orders 05/03/19 18:26 EKG Documentation Completion [RC] ASDIRECTED CXR [Chest 2V] [CR] Stat Blood Culture x2 Reflex Set [OM.PC] Urgent EKG 12 Lead [EK] Routine 05/03/19 18:36 BLOOD BANK HOLD SPECIMEN [BBK] Stat CULTURE BLOOD [BC] Urgent 05/03/19 18:44 CULTURE BLOOD [BC] Urgent 05/03/19 19:30 Sodium Chloride 0.9% [Normal Saline] 1,000 ml IV ASDIRECTED - Assessment/Plan Last 24 Hours: My Active Orders 05/03/19 18:26 EKG Documentation Completion [RC] ASDIRECTED CXR [Chest 2V] [CR] Stat Blood Culture x2 Reflex Set [OM.PC] Urgent EKG 12 Lead [EK] Routine 05/03/19 18:36 BLOOD BANK HOLD SPECIMEN [BBK] Stat CULTURE BLOOD [BC] Urgent 05/03/19 18:44 CULTURE BLOOD [BC] Urgent 05/03/19 19:30 Sodium Chloride 0.9% [Normal Saline] 1,000 ml IV ASDIRECTED
[2019-05-03] MEDS ORDERED: Magnesium Sulfate/Water 2 GM in Premix Bag 1 BAG IV ONE (19:05)
[2019-05-03] MEDS: Sodium Chloride 0.9% 1,000 ML IV SCH ×3 (19:48→23:55)
[2019-05-03] MEDS ORDERED: Famotidine/Normal Saline 20 MG in Premix Bag 1 BAG IV ONE (21:03)
[2019-05-03] MEDS ORDERED: Pantoprazole 40 MG Vial IVPUSH ONE (21:03)
[2019-05-03] MEDS ORDERED: LORazepam 2 MG/ML SDV IVPUSH ONE (22:04)
--- NOTE | 2019-05-03 22:10 | PCM.HP.2 ---
H&P History of Present Illness - General Date of Service: 05/03/19 Admit Problem/Dx: Admission Diagnosis/Problem Admission Diagnosis/Problem Bleeding gastric erosion Source of Information: Patient, Old Records History Limitations: Reports: No Limitations - History of Present Illness Initial Comments - Free Text/Narative: patient admitted from ER following bloody emesis, feeling lightheaded and slightly dyspneic on exertion this afternoon starting around 230pm. Also had red in stool X2, approximately 10 bowel movements total, early ones were black and tarry. Denies fever, chills, sweats, symptoms, cough, SOB, chest pain. No abdominal pain. Known alcoholic, but adamant he has not drunk in two weeks. Likes beer, denies other drinks. Quit chewing. No history esophageal varices. Taking metroprolol 50mg BID for blood pressure, has PRN zofran, and finasteride for renal stones. - Related Data Allergies/Adverse Reactions: Allergies Allergy/AdvReac Type Severity Reaction Status Date / Time No Known Allergies Allergy Verified 04/16/19 14:20 Home Medications: Home Meds Ondansetron [Zofran ODT] 4 mg PO Q6H PRN #20 tab.dis 11/29/16 [Rx] Acetaminophen/oxyCODONE [Percocet 325-5 MG] 1 each PO Q6HR PRN #12 tab 04/16/19 [Rx] Ciprofloxacin HCl [Cipro] 500 mg PO BID #20 tablet 04/16/19 [Rx] Metoprolol Succinate [Toprol Xl] 50 mg PO DAILY 04/16/19 [History] Tamsulosin [Tamsulosin 24 Hr] 0.4 mg PO DAILY #4 cap.er 04/16/19 [Rx] Valsartan 80 mg BEDTIME 04/16/19 [History] Past Medical History Cardiovascular History: Reports: Hypertension, SOB on Exertion Respiratory History: Reports: Other (See Below) Other Respiratory History: pulmonary sarcoidosis Gastrointestinal History: Reports: Cholelithiasis Genitourinary History: Reports: Renal Calculus Musculoskeletal History: Reports: Fracture Other Musculoskeletal History: hx fx L fx ribs Neurological History: Reports: Concussion Psychiatric History: Reports: Anxiety, Depression Hematologic History: Reports: Blood Transfusion(s) Immunologic History: Reports: Other (See Below) Other Immunologic History: spleen enlarged 2005- Unknown cause? - Infectious Disease History Infectious Disease History: Reports: Chicken Pox - Past Surgical History Head Surgeries/Procedures: Reports: None Other Surgical History Comment: splenectomy Social & Family History - Family History Family Medical History: Noncontributory Respiratory: Reports: Other (See Below) Other Respiratory Family Hisory: father- resp failures, mrsa pneum, tracheostomy in place, : Reports: Other (See Below) Other Family History: father- endocrine disorders, Musculoskeletal: Reports: Other (See Below) Other Musculoskeletal Family History: father- quadaparesis (muscle weakness), peripheral neuropathy Neurological: Reports: Neuropathy, Peripheral, Other (See Below) Other Neurological Family History: father- menningitis, headaches, Psychiatric: Reports: Other (See Below) Other Psychiatric Family History: father- anxiety related to his failing health, Other Endocrine/Metabolic Family History: father- endocrine disorder Immunologic: Reports: Other (See Below) Other Immunologic Family History: father- metabolic, immunity disorders, MSSA septicemia - Tobacco Use Smoking Status *Q: Former Smoker Tobacco Use Comment: recently quit using chew - Caffeine Use Caffeine Use: Reports: Soda - Alcohol Use Alcohol Use History: Yes Date/Time of Last Drink Comment: reported to be two weeks ago; unsure - Recreational Drug Use Recreational Drug Use: No H&P Review of Systems - Review of Systems: Review Of Systems: ROS reveals no pertinent complaints other than HPI. General: Reports: Weakness. Denies: Fever, Chills, Malaise, Diaphoresis HEENT: Reports: Sore Throat. Denies: Ear Pain, Eye Pain, Headaches, Sinus Congestion, Vertigo Pulmonary: Denies: Wheezing, Pleuritic Chest Pain, Cough Cardiovascular: Reports: Dyspnea on Exertion, Lightheadedness. Denies: Chest Pain, Palpitations Gastrointestinal: Reports: Black Stool, Bloody Stool, Diarrhea, Hematemesis, Nausea, Vomiting. Denies: Abdominal Pain Genitourinary: Denies: Dysuria, Frequency, Burning, Urgency Musculoskeletal: Reports: Back Pain Skin: Reports: Rash. Denies: Wound Psychiatric: Reports: Anxiety. Denies: Hallucinations Neurological: Denies: Confusion, Dizziness, Headache, Numbness, Tingling, Weakness Hematologic/Lymphatic: Denies: Easy Bleeding, Easy Bruising Immunologic: Reports: No Symptoms Exam - Exam Exam: See Below - Vital Signs Vital Signs: Last Vital Signs Temp 36.2 C 05/03/19 18:00 Pulse 107 H 05/03/19 18:00 Resp 18 05/03/19 18:00 BP 120/95 H 05/03/19 18:00 Pulse Ox 100 05/03/19 18:00 Weight: 72.575 kg - Exam General: Alert, Oriented, Cooperative HEENT: PERRLA, Conjunctiva Clear, Hearing Intact, Mucosa Moist & [place]. No: Rhinitis Neck: Supple, Trachea Midline Lungs: Clear to Auscultation, Normal Respiratory Effort, Decreased Breath Sounds Cardiovascular: Regular Rate, Regular Rhythm, Normal S1, Normal S2 GI/Abdominal Exam: Normal Bowel Sounds, Soft, Non-Tender. No: Distended, Rebound (Male) Exam: Rash Rectal (Males) Exam: Other Back Exam: Normal Inspection, Full Range of Motion. No: CVA Tenderness (R), CVA Tenderness (L) Extremities: Normal Inspection, Normal Range of Motion, Non-Tender Peripheral Pulses: 2+: Radial (L), Radial (R), Dorsalis Pedis (L), Dorsalis Pedis (R) Skin: Warm, Dry, Intact Neurological: Cranial Nerves Intact, Strength Equal Bilateral, Normal Gait, Normal Speech, Normal Tone, Sensation Intact Neuro Extensive - Mental Status: Alert, Oriented x3, Normal Mood/Affect, Normal Cognition Neuro Extensive - Motor, Sensory, Reflexes: CN II-XII Intact, Normal Gait Psychiatric: Alert, Normal Affect, Normal Mood, Withdrawal Symptoms, Other ( poor judgement ) - Patient Data Lab Results Last 24 hrs: Laboratory Results - last 24 hr 05/03/19 05/03/19 05/03/19 Range/Units 18:36 18:36 18:36 WBC 10.3 (4.5-12.0) X10-3/uL RBC 2.95 L (4.30-5.75) x10(6)uL Hgb 10.8 L (13.5-17.8) g/dL Hct 31.0 (30.0-51.3) % MCV 105.2 H (80-96) fL MCH 36.5 H (27.7-33.6) pg MCHC 34.7 (32.2-35.4) g/dL RDW 14.8 (11.5-15.5) % Plt Count 430 H (125-369) X10(3)uL MPV 7.9 (7.4-10.4) fL Neut % (Auto) 76.6 (46-82) % Lymph % (Auto) 13.2 (13-37) % Glenn % (Auto) 9.2 (4-12) % Eos % (Auto) 0 L (1.0-5.0) % Baso % (Auto) 1 (0-2) % Neut # (Auto) 7.9 (1.6-8.3) # Lymph # (Auto) 1.4 (0.6-5.0) # Glenn # (Auto) 0.9 (0.0-1.3) # Eos # (Auto) 0.0 (0.0-0.8) # Baso # (Auto) 0.1 (0.0-0.2) # PT (8.7-11.1) INR (0.89-1.13) Sodium 140 (135-145) mmol/L Potassium 3.6 (3.5-5.3) mmol/L Chloride 100 (100-110) mmol/L Carbon Dioxide 30 (21-32) mmol/L BUN 29 H D (7-18) mg/dL Creatinine 1.1 (0.70-1.30) mg/dL Est Cr Clr Drug Dosing TNP Estimated GFR (MDRD) > 60 (>60) BUN/Creatinine Ratio 26.4 H (9-20) Glucose 109 (80-116) mg/dL Lactic Acid 1.3 (0.4-2.2) mmol/L Calcium 8.6 (8.6-10.2) mg/dL Magnesium 1.1 L* (1.8-2.5) mg/dL Total Bilirubin 1.0 (0.1-1.3) mg/dL AST 55 H D (5-25) IU/L ALT 41 H D (12-36) U/L Alkaline Phosphatase 149 H (56-112) IU/L Troponin I (<0.017-0.056) ng/mL Total Protein 6.0 (6.0-8.0) g/dL Albumin 2.7 L (3.5-5.2) g/dL Globulin 3.3 g/dL Albumin/Globulin Ratio 0.8 Amylase (25-115) U/L Urine Color (YELLOW) Urine Appearance (CLEAR) Urine pH (5.0-6.5) Ur Specific [place] (1.010-1.025) Urine Protein (NEGATIVE) mg/dL Urine Glucose (UA) (NORMAL) mg/dL Urine Ketones (NEGATIVE) mg/dL Urine Occult Blood (NEGATIVE) Urine Nitrite (NEGATIVE) Urine Bilirubin (NEGATIVE) Urine Urobilinogen (NEGATIVE) mg/dL Ur Leukocyte Esterase (NEGATIVE) Urine RBC (0-5) Urine WBC (0-5) Ur Squamous Epith Cells (NS,R,O) Urine Bacteria (NS) Ethyl Alcohol (<0.03) % 05/03/19 05/03/19 05/03/19 Range/Units 18:36 18:36 18:36 WBC (4.5-12.0) X10-3/uL RBC (4.30-5.75) x10(6)uL Hgb (13.5-17.8) g/dL Hct (30.0-51.3) % MCV (80-96) fL MCH (27.7-33.6) pg MCHC (32.2-35.4) g/dL RDW (11.5-15.5) % Plt Count (125-369) X10(3)uL MPV (7.4-10.4) fL Neut % (Auto) (46-82) % Lymph % (Auto) (13-37) % Glenn % (Auto) (4-12) % Eos % (Auto) (1.0-5.0) % Baso % (Auto) (0-2) % Neut # (Auto) (1.6-8.3) # Lymph # (Auto) (0.6-5.0) # Glenn # (Auto) (0.0-1.3) # Eos # (Auto) (0.0-0.8) # Baso # (Auto) (0.0-0.2) # PT 10.7 (8.7-11.1) INR 1.10 (0.89-1.13) Sodium (135-145) mmol/L Potassium (3.5-5.3) mmol/L Chloride (100-110) mmol/L Carbon Dioxide (21-32) mmol/L BUN (7-18) mg/dL Creatinine (0.70-1.30) mg/dL Est Cr Clr Drug Dosing Estimated GFR (MDRD) (>60) BUN/Creatinine Ratio (9-20) Glucose (80-116) mg/dL Lactic Acid (0.4-2.2) mmol/L Calcium (8.6-10.2) mg/dL Magnesium (1.8-2.5) mg/dL Total Bilirubin (0.1-1.3) mg/dL AST (5-25) IU/L ALT (12-36) U/L Alkaline Phosphatase (56-112) IU/L Troponin I (<0.017-0.056) ng/mL Total Protein (6.0-8.0) g/dL Albumin (3.5-5.2) g/dL Globulin g/dL Albumin/Globulin Ratio Amylase 18 L (25-115) U/L Urine Color (YELLOW) Urine Appearance (CLEAR) Urine pH (5.0-6.5) Ur Specific [place] (1.010-1.025) Urine Protein (NEGATIVE) mg/dL Urine Glucose (UA) (NORMAL) mg/dL Urine Ketones (NEGATIVE) mg/dL Urine Occult Blood (NEGATIVE) Urine Nitrite (NEGATIVE) Urine Bilirubin (NEGATIVE) Urine Urobilinogen (NEGATIVE) mg/dL Ur Leukocyte Esterase (NEGATIVE) Urine RBC (0-5) Urine WBC (0-5) Ur Squamous Epith Cells (NS,R,O) Urine Bacteria (NS) Ethyl Alcohol < 0.03 (<0.03) % 05/03/19 05/03/19 Range/Units 18:36 19:28 WBC (4.5-12.0) X10-3/uL RBC (4.30-5.75) x10(6)uL Hgb (13.5-17.8) g/dL Hct (30.0-51.3) % MCV (80-96) fL MCH (27.7-33.6) pg MCHC (32.2-35.4) g/dL RDW (11.5-15.5) % Plt Count (125-369) X10(3)uL MPV (7.4-10.4) fL Neut % (Auto) (46-82) % Lymph % (Auto) (13-37) % Glenn % (Auto) (4-12) % Eos % (Auto) (1.0-5.0) % Baso % (Auto) (0-2) % Neut # (Auto) (1.6-8.3) # Lymph # (Auto) (0.6-5.0) # Glenn # (Auto) (0.0-1.3) # Eos # (Auto) (0.0-0.8) # Baso # (Auto) (0.0-0.2) # PT (8.7-11.1) INR (0.89-1.13) Sodium (135-145) mmol/L Potassium (3.5-5.3) mmol/L Chloride (100-110) mmol/L Carbon Dioxide (21-32) mmol/L BUN (7-18) mg/dL Creatinine (0.70-1.30) mg/dL Est Cr Clr Drug Dosing Estimated GFR (MDRD) (>60) BUN/Creatinine Ratio (9-20) Glucose (80-116) mg/dL Lactic Acid (0.4-2.2) mmol/L Calcium (8.6-10.2) mg/dL Magnesium (1.8-2.5) mg/dL Total Bilirubin (0.1-1.3) mg/dL AST (5-25) IU/L ALT (12-36) U/L Alkaline Phosphatase (56-112) IU/L Troponin I 0.019 (<0.017-0.056) ng/mL Total Protein (6.0-8.0) g/dL Albumin (3.5-5.2) g/dL Globulin g/dL Albumin/Globulin Ratio Amylase (25-115) U/L Urine Color Yellow (YELLOW) Urine Appearance Clear (CLEAR) Urine pH 6.5 (5.0-6.5) Ur Specific [place] 1.010 (1.010-1.025) Urine Protein Negative (NEGATIVE) mg/dL Urine Glucose (UA) Normal (NORMAL) mg/dL Urine Ketones Negative (NEGATIVE) mg/dL Urine Occult Blood Moderate (NEGATIVE) Urine Nitrite Negative (NEGATIVE) Urine Bilirubin Negative (NEGATIVE) Urine Urobilinogen 0.2 (NEGATIVE) mg/dL Ur Leukocyte Esterase Negative (NEGATIVE) Urine RBC 5-10 H (0-5) Urine WBC 0-5 (0-5) Ur Squamous Epith Cells Few H (NS,R,O) Urine Bacteria Few H (NS) Ethyl Alcohol (<0.03) % Result Diagrams: 05/03/19 18:36 05/03/19 18:36 *Q Meaningful Use (ADM) - VTE *Q VTE Pharmacological Contraindications *Q: Risk of Bleeding - Problem List (1) Alcohol use disorder SNOMED Code(s): 3905974 ICD Code: [id number] - Status: Chronic Priority: High Current Visit: Yes (2) Anemia SNOMED Code(s): 156924325 ICD Code: D64.9 - ANEMIA, UNSPECIFIED Status: Acute Priority: High Current Visit: Yes Qualifiers: Anemia type: other cause Other causes of anemia: acute posthemorrhagic Qualified Code(s): D62 - Acute posthemorrhagic anemia (3) GI bleed SNOMED Code(s): 11607945 ICD Code: K92.2 - GASTROINTESTINAL HEMORRHAGE, UNSPECIFIED Status: Acute Current Visit: Yes Qualifiers: Gastritis type: unspecified gastritis (4) S/P splenectomy SNOMED Code(s): 918494771, 281910339, 980316194 Status: Acute Current Visit: No (5) Urolithiasis SNOMED Code(s): 03650325, 724315842 ICD Code: N20.9 - URINARY CALCULUS, UNSPECIFIED Status: Chronic Priority : Low Current Visit: No Qualifiers: Urinary calculus location: upper urinary tract Qualified Code(s): N20.9 - Urinary calculus, unspecified Problem List Initiated/Reviewed/Updated: Yes Orders Last 24hrs: Active Orders 24 hr Category Date Time Status Patient Status Manage Transfer [TRANSFER] Routine ADT 05/03/19 20:15 Active EKG Documentation Completion [RC] ASDIRECTED Care 05/03/19 18:26 Active EKG Documentation Completion [RC] ASDIRECTED Care 05/03/19 21:59 Active CXR [Chest 2V] [CR] Stat Exams 05/03/19 18:26 Taken BLOOD BANK HOLD SPECIMEN [BBK] Stat Lab 05/03/19 18:36 Received CULTURE BLOOD [BC] Urgent Lab 05/03/19 18:36 Received CULTURE BLOOD [BC] Urgent Lab 05/03/19 18:44 Received LORazepam [Ativan] Med 05/03/19 22:04 Once 1 mg IVPUSH ONETIME ONE Sodium Chloride 0.9% [Normal Saline] 1,000 ml Med 05/03/19 19:30 Active IV ASDIRECTED Blood Culture x2 Reflex Set [OM.PC] Urgent Oth 05/03/19 18:26 Ordered Resuscitation Status Routine Resus Stat 05/03/19 20:17 Ordered EKG 12 Lead [EK] Routine Ther 05/03/19 18:26 Ordered EKG 12 Lead [EK] Routine Ther 05/03/19 20:20 Ordered Medication Orders Sodium Chloride (Normal Saline) 1,000 mls @ 500 mls/hr IV ASDIRECTED NADYA Last Admin: 05/03/19 19:48 Dose: 500 mls/hr Lorazepam (Ativan) 1 mg IVPUSH ONETIME ONE Stop: 05/03/19 22:05 Assessment/Plan Comment:: admit obs: protonix, pepcid, IVF overnight telemetry w/ call parameters CIWA, Ativan as needed repeat Hb in AM, sooner if additional signs of bleeding VTE prophylaxis contraindicated skin cream barrier as needed for groin rash no need for antibiotics at this time hold antihypertensives mag repleted in ER patient aware of risks of remaining, if decompensates will transfer north to [place]
[2019-05-04] MEDS ORDERED: Acetaminophen 500 MG Tab PO PRN (00:08)
[2019-05-04] MEDS ORDERED: LORazepam 2 MG/ML SDV IVPUSH PRN (00:18)
--- NOTE | 2019-05-04 08:48 | PCM.HP.2 ---
H&P History of Present Illness - General Date of Service: 05/04/19 Admit Problem/Dx: This is a 34-year-old male patient that started having bloody emesis last night. He has start tarry black stools and diarrhea. He said he had some sweating with the vomiting but no fevers, chills. He says he has been on ibuprofen 800 3 times a day for the last 2 weeks because of a renal stone. He has a history of alcohol abuse but states he hasn't had any alcohol for about 2 weeks. He states his friend that he used to drink with his in trouble a lot has ankle brace and Drink. He does have some epigastric pain. He has no history of ulcers doesn't history cholelithiasis. - Related Data Allergies/Adverse Reactions: Allergies Allergy/AdvReac Type Severity Reaction Status Date / Time No Known Allergies Allergy Verified 04/16/19 14:20 Home Medications: Home Meds Ondansetron [Zofran ODT] 4 mg PO Q6H PRN #20 tab.dis 11/29/16 [Rx] Metoprolol Succinate [Toprol Xl] 50 mg PO DAILY 04/16/19 [History] Tamsulosin [Tamsulosin 24 Hr] 0.4 mg PO DAILY #4 cap.er 04/16/19 [Rx] Past Medical History - Past Health History Medical/Surgical History: Denies Medical/Surgical History Cardiovascular History: Reports: Hypertension, SOB on Exertion Other Cardiovascular History: Non-ischemic cardiomyopathy. Respiratory History: Reports: Other (See Below) Other Respiratory History: pulmonary sarcoidosis Gastrointestinal History: Reports: Cholelithiasis Genitourinary History: Reports: Renal Calculus Musculoskeletal History: Reports: Fracture Other Musculoskeletal History: hx fx L fx ribs Neurological History: Reports: Concussion Other Neuro History: History of tremors. Psychiatric History: Reports: Anxiety, Depression Hematologic History: Reports: Blood Transfusion(s) Other Hematologic History: Spleenectomy, unknown etiology. Immunologic History: Reports: Other (See Below) Other Immunologic History: spleen enlarged 2006- Unknown cause? - Infectious Disease History Infectious Disease History: Reports: Chicken Pox - Past Surgical History Head Surgeries/Procedures: Reports: None Other Surgical History Comment: splenectomy Social & Family History - Family History Family Medical History: Noncontributory Respiratory: Reports: Other (See Below) Other Respiratory Family Hisory: father- resp failures, mrsa pneum, tracheostomy in place, : Reports: Other (See Below) Other Family History: father- endocrine disorders, Musculoskeletal: Reports: Other (See Below) Other Musculoskeletal Family History: father- quadaparesis (muscle weakness), peripheral neuropathy Neurological: Reports: Neuropathy, Peripheral, Other (See Below) Other Neurological Family History: father- menningitis, headaches, Psychiatric: Reports: Other (See Below) Other Psychiatric Family History: father- anxiety related to his failing health, Other Endocrine/Metabolic Family History: father- endocrine disorder Immunologic: Reports: Other (See Below) Other Immunologic Family History: father- metabolic, immunity disorders, MSSA septicemia - Tobacco Use Smoking Status *Q: Former Smoker Tobacco Use Comment: recently quit using chew - Caffeine Use Caffeine Use: Reports: Soda Caffeine Use Comment: Patient states he drinks caffeine on rare occasion. - Recreational Drug Use Recreational Drug Use: No H&P Review of Systems - Review of Systems: Review Of Systems: See Below General: Reports: Weakness, Fatigue HEENT: Reports: No Symptoms Pulmonary: Reports: Shortness of Breath Cardiovascular: Reports: Chest Pain (For 8 months. Seen cardiology and pulmonology in [place]) Gastrointestinal: Reports: Abdominal Pain, Black Stool, Hematochezia Genitourinary: Reports: No Symptoms Musculoskeletal: Reports: No Symptoms Skin: Reports: No Symptoms Psychiatric: Reports: Depression (Mild states he is not working currently.) Neurological: Reports: No Symptoms Hematologic/Lymphatic: Reports: No Symptoms Immunologic: Reports: No Symptoms Exam - Exam Exam: See Below - Vital Signs Vital Signs: Last Vital Signs Temp 98.7 F 05/04/19 06:15 Pulse 92 05/04/19 06:15 Resp 16 05/04/19 06:15 BP 120/89 05/04/19 06:15 Pulse Ox 98 05/04/19 06:15 Weight: 160 lb - Exam General: Alert, Oriented, Cooperative HEENT: Hearing Intact, Posterior Pharynx Clear, TMs Clear Neck: Supple, Trachea Midline. No: Lymphadenopathy Lungs: Clear to Auscultation, Normal Respiratory Effort Cardiovascular: Regular Rate, Regular Rhythm, Tachycardia. No: Systolic Murmur , Diastolic Murmur GI/Abdominal Exam: Normal Bowel Sounds, Soft, No Organomegaly, No Distention, No Mass, Tender (Epigastric) Back Exam: Normal Inspection, Full Range of Motion Extremities: Normal Inspection, Normal Range of Motion, No Pedal Edema Skin: Warm, Dry, Intact Neurological: Normal Speech, Normal Tone Neuro Extensive - Mental Status: Alert, Oriented x3, Normal Mood/Affect, Normal Cognition Psychiatric: Alert, Normal Affect, Normal Mood - Patient Data Lab Results Last 24 hrs: Laboratory Results - last 24 hr 05/03/19 05/03/19 05/03/19 Range/Units 18:36 18:36 18:36 WBC 10.3 (4.5-12.0) X10-3/uL RBC 2.95 L (4.30-5.75) x10(6)uL Hgb 10.8 L (13.5-17.8) g/dL Hct 31.0 (30.0-51.3) % MCV 105.2 H (80-96) fL MCH 36.5 H (27.7-33.6) pg MCHC 34.7 (32.2-35.4) g/dL RDW 14.8 (11.5-15.5) % Plt Count 430 H (125-369) X10(3)uL MPV 7.9 (7.4-10.4) fL Neut % (Auto) 76.6 (46-82) % Lymph % (Auto) 13.2 (13-37) % [place] % (Auto) 9.2 (4-12) % Eos % (Auto) 0 L (1.0-5.0) % Baso % (Auto) 1 (0-2) % Neut # (Auto) 7.9 (1.6-8.3) # Lymph # (Auto) 1.4 (0.6-5.0) # [place]kins # (Auto) 0.9 (0.0-1.3) # Eos # (Auto) 0.0 (0.0-0.8) # Baso # (Auto) 0.1 (0.0-0.2) # PT (8.7-11.1) INR (0.89-1.13) Sodium 140 (135-145) mmol/L Potassium 3.6 (3.5-5.3) mmol/L Chloride 100 (100-110) mmol/L Carbon Dioxide 30 (21-32) mmol/L BUN 29 H D (7-18) mg/dL Creatinine 1.1 (0.70-1.30) mg/dL Est Cr Clr Drug Dosing TNP Estimated GFR (MDRD) > 60 (>60) BUN/Creatinine Ratio 26.4 H (9-20) Glucose 109 (80-116) mg/dL Lactic Acid 1.3 (0.4-2.2) mmol/L Calcium 8.6 (8.6-10.2) mg/dL Magnesium 1.1 L* (1.8-2.5) mg/dL Total Bilirubin 1.0 (0.1-1.3) mg/dL AST 55 H D (5-25) IU/L ALT 41 H D (12-36) U/L Alkaline Phosphatase 149 H (56-112) IU/L Troponin I (<0.017-0.056) ng/mL Total Protein 6.0 (6.0-8.0) g/dL Albumin 2.7 L (3.5-5.2) g/dL Globulin 3.3 g/dL Albumin/Globulin Ratio 0.8 Amylase (25-115) U/L Urine Color (YELLOW) Urine Appearance (CLEAR) Urine pH (5.0-6.5) Ur Specific [place] (1.010-1.025) Urine Protein (NEGATIVE) mg/dL Urine Glucose (UA) (NORMAL) mg/dL Urine Ketones (NEGATIVE) mg/dL Urine Occult Blood (NEGATIVE) Urine Nitrite (NEGATIVE) Urine Bilirubin (NEGATIVE) Urine Urobilinogen (NEGATIVE) mg/dL Ur Leukocyte Esterase (NEGATIVE) Urine RBC (0-5) Urine WBC (0-5) Ur Squamous Epith Cells (NS,R,O) Urine Bacteria (NS) Ethyl Alcohol (<0.03) % 05/03/19 05/03/19 05/03/19 Range/Units 18:36 18:36 18:36 WBC (4.5-12.0) X10-3/uL RBC (4.30-5.75) x10(6)uL Hgb (13.5-17.8) g/dL Hct (30.0-51.3) % MCV (80-96) fL MCH (27.7-33.6) pg MCHC (32.2-35.4) g/dL RDW (11.5-15.5) % Plt Count (125-369) X10(3)uL MPV (7.4-10.4) fL Neut % (Auto) (46-82) % Lymph % (Auto) (13-37) % [place] % (Auto) (4-12) % Eos % (Auto) (1.0-5.0) % Baso % (Auto) (0-2) % Neut # (Auto) (1.6-8.3) # Lymph # (Auto) (0.6-5.0) # Tompkins # (Auto) (0.0-1.3) # Eos # (Auto) (0.0-0.8) # Baso # (Auto) (0.0-0.2) # PT 10.7 (8.7-11.1) INR 1.10 (0.89-1.13) Sodium (135-145) mmol/L Potassium (3.5-5.3) mmol/L Chloride (100-110) mmol/L Carbon Dioxide (21-32) mmol/L BUN (7-18) mg/dL Creatinine (0.70-1.30) mg/dL Est Cr Clr Drug Dosing Estimated GFR (MDRD) (>60) BUN/Creatinine Ratio (9-20) Glucose (80-116) mg/dL Lactic Acid (0.4-2.2) mmol/L Calcium (8.6-10.2) mg/dL Magnesium (1.8-2.5) mg/dL Total Bilirubin (0.1-1.3) mg/dL AST (5-25) IU/L ALT (12-36) U/L Alkaline Phosphatase (56-112) IU/L Troponin I (<0.017-0.056) ng/mL Total Protein (6.0-8.0) g/dL Albumin (3.5-5.2) g/dL Globulin g/dL Albumin/Globulin Ratio Amylase 18 L (25-115) U/L Urine Color (YELLOW) Urine Appearance (CLEAR) Urine pH (5.0-6.5) Ur Specific [place] (1.010-1.025) Urine Protein (NEGATIVE) mg/dL Urine Glucose (UA) (NORMAL) mg/dL Urine Ketones (NEGATIVE) mg/dL Urine Occult Blood (NEGATIVE) Urine Nitrite (NEGATIVE) Urine Bilirubin (NEGATIVE) Urine Urobilinogen (NEGATIVE) mg/dL Ur Leukocyte Esterase (NEGATIVE) Urine RBC (0-5) Urine WBC (0-5) Ur Squamous Epith Cells (NS,R,O) Urine Bacteria (NS) Ethyl Alcohol < 0.03 (<0.03) % 05/03/19 05/03/19 05/03/19 Range/Units 18:36 19:28 22:43 WBC 9.9 (4.5-12.0) X10-3/uL RBC 2.50 L (4.30-5.75) x10(6)uL Hgb 9.1 L (13.5-17.8) g/dL Hct 25.7 L (30.0-51.3) % MCV 102.8 H (80-96) fL MCH 36.5 H (27.7-33.6) pg MCHC 35.5 H (32.2-35.4) g/dL RDW 14.4 (11.5-15.5) % Plt Count 370 H (125-369) X10(3)uL MPV (7.4-10.4) fL Neut % (Auto) (46-82) % Lymph % (Auto) (13-37) % [place] % (Auto) (4-12) % Eos % (Auto) (1.0-5.0) % Baso % (Auto) (0-2) % Neut # (Auto) (1.6-8.3) # Lymph # (Auto) (0.6-5.0) # [place]kins # (Auto) (0.0-1.3) # Eos # (Auto) (0.0-0.8) # Baso # (Auto) (0.0-0.2) # PT (8.7-11.1) INR (0.89-1.13) Sodium (135-145) mmol/L Potassium (3.5-5.3) mmol/L Chloride (100-110) mmol/L Carbon Dioxide (21-32) mmol/L BUN (7-18) mg/dL Creatinine (0.70-1.30) mg/dL Est Cr Clr Drug Dosing Estimated GFR (MDRD) (>60) BUN/Creatinine Ratio (9-20) Glucose (80-116) mg/dL Lactic Acid (0.4-2.2) mmol/L Calcium (8.6-10.2) mg/dL Magnesium (1.8-2.5) mg/dL Total Bilirubin (0.1-1.3) mg/dL AST (5-25) IU/L ALT (12-36) U/L Alkaline Phosphatase (56-112) IU/L Troponin I 0.019 (<0.017-0.056) ng/mL Total Protein (6.0-8.0) g/dL Albumin (3.5-5.2) g/dL Globulin g/dL Albumin/Globulin Ratio Amylase (25-115) U/L Urine Color Yellow (YELLOW) Urine Appearance Clear (CLEAR) Urine pH 6.5 (5.0-6.5) Ur Specific [place] 1.010 (1.010-1.025) Urine Protein Negative (NEGATIVE) mg/dL Urine Glucose (UA) Normal (NORMAL) mg/dL Urine Ketones Negative (NEGATIVE) mg/dL Urine Occult Blood Moderate (NEGATIVE) Urine Nitrite Negative (NEGATIVE) Urine Bilirubin Negative (NEGATIVE) Urine Urobilinogen 0.2 (NEGATIVE) mg/dL Ur Leukocyte Esterase Negative (NEGATIVE) Urine RBC 5-10 H (0-5) Urine WBC 0-5 (0-5) Ur Squamous Epith Cells Few H (NS,R,O) Urine Bacteria Few H (NS) Ethyl Alcohol (<0.03) % 05/04/19 05/04/19 Range/Units 06:35 06:35 WBC 8.6 (4.5-12.0) X10-3/uL RBC 2.47 L (4.30-5.75) x10(6)uL Hgb 8.8 L (13.5-17.8) g/dL Hct 25.9 L (30.0-51.3) % MCV 105.1 H (80-96) fL MCH 35.9 H (27.7-33.6) pg MCHC 34.1 (32.2-35.4) g/dL RDW 14.9 (11.5-15.5) % Plt Count 370 H (125-369) X10(3)uL MPV (7.4-10.4) fL Neut % (Auto) (46-82) % Lymph % (Auto) (13-37) % [place] % (Auto) (4-12) % Eos % (Auto) (1.0-5.0) % Baso % (Auto) (0-2) % Neut # (Auto) (1.6-8.3) # Lymph # (Auto) (0.6-5.0) # [place] # (Auto) (0.0-1.3) # Eos # (Auto) (0.0-0.8) # Baso # (Auto) (0.0-0.2) # PT (8.7-11.1) INR (0.89-1.13) Sodium 144 (135-145) mmol/L Potassium 3.4 L (3.5-5.3) mmol/L Chloride 106 D (100-110) mmol/L Carbon Dioxide 31 (21-32) mmol/L BUN 23 H (7-18) mg/dL Creatinine 0.9 (0.70-1.30) mg/dL Est Cr Clr Drug Dosing 112.94 Estimated GFR (MDRD) > 60 (>60) BUN/Creatinine Ratio 25.6 H (9-20) Glucose 85 (80-116) mg/dL Lactic Acid (0.4-2.2) mmol/L Calcium 7.6 L (8.6-10.2) mg/dL Magnesium (1.8-2.5) mg/dL Total Bilirubin (0.1-1.3) mg/dL AST (5-25) IU/L ALT (12-36) U/L Alkaline Phosphatase (56-112) IU/L Troponin I (<0.017-0.056) ng/mL Total Protein (6.0-8.0) g/dL Albumin (3.5-5.2) g/dL Globulin g/dL Albumin/Globulin Ratio Amylase (25-115) U/L Urine Color (YELLOW) Urine Appearance (CLEAR) Urine pH (5.0-6.5) Ur Specific [place] (1.010-1.025) Urine Protein (NEGATIVE) mg/dL Urine Glucose (UA) (NORMAL) mg/dL Urine Ketones (NEGATIVE) mg/dL Urine Occult Blood (NEGATIVE) Urine Nitrite (NEGATIVE) Urine Bilirubin (NEGATIVE) Urine Urobilinogen (NEGATIVE) mg/dL Ur Leukocyte Esterase (NEGATIVE) Urine RBC (0-5) Urine WBC (0-5) Ur Squamous Epith Cells (NS,R,O) Urine Bacteria (NS) Ethyl Alcohol (<0.03) % Result Diagrams: 05/04/19 06:35 05/04/19 06:35 *Q Meaningful Use (ADM) - VTE *Q VTE Pharmacological Contraindications *Q: Risk of Bleeding - Problem List (1) Anemia SNOMED Code(s): 947323156 ICD Code: D64.9 - ANEMIA, UNSPECIFIED Status: Acute Priority: High Current Visit: Yes Qualifiers: Anemia type: other cause Other causes of anemia: acute posthemorrhagic Qualified Code(s): D62 - Acute posthemorrhagic anemia (2) GI bleed SNOMED Code(s): 63213575 ICD Code: K92.2 - GASTROINTESTINAL HEMORRHAGE, UNSPECIFIED Status: Acute Current Visit: Yes Qualifiers: Gastritis type: unspecified gastritis (3) Alcohol use disorder SNOMED Code(s): 9224827 ICD Code: STI6994 - Status: Chronic Priority: High Current Visit: Yes (4) S/P splenectomy SNOMED Code(s): 156748020, 390815241, 445356757 Status: Acute Current Visit: No Problem List Initiated/Reviewed/Updated: Yes Orders Last 24hrs: Active Orders 24 hr Category Date Time Status Patient Status [ADT] Routine ADT 05/04/19 00:08 Active Antiembolic Devices [RC] .Routine Care 05/04/19 00:08 Active CIWAA Assessment [RC] Q2HWA Care 05/04/19 00:32 Active Notify Provider [RC] 00,08,16 Care 05/04/19 00:00 Active Pulse Oximetry [RC] PRN Care 05/04/19 00:08 Active Telemetry Monitoring [Cardiac Monitoring] [RC] 00,08,16 Care 05/04/19 00:08 Active Up ad [place] [RC] ASDIRECTED Care 05/04/19 00:08 Active Vital Signs [RC] 00,04,08,12,16,20 Care 05/04/19 00:08 Active NPO [Nothing Per Oral Diet] [DIET] Diet 05/04/19 Breakfast Active CXR [Chest 2V] [CR] Stat Exams 05/03/19 18:26 Taken BLOOD BANK HOLD SPECIMEN [BBK] Stat Lab 05/03/19 18:36 Received CULTURE BLOOD [BC] Urgent Lab 05/03/19 18:36 Received CULTURE BLOOD [BC] Urgent Lab 05/03/19 18:44 Received Acetaminophen [Tylenol Extra Strength] Med 05/04/19 00:08 Active 500 mg PO Q4H PRN LORazepam [Ativan] Med 05/04/19 00:18 Active 1 - 4 mg IVPUSH Q1H PRN Sodium Chloride 0.9% [Normal Saline] 1,000 ml Med 05/03/19 23:55 Active IV ASDIRECTED Blood Culture x2 Reflex Set [OM.PC] Urgent Oth 05/03/19 18:26 Ordered DVT/VTE Prophylaxis Reflex [OM.PC] Per Unit Routine Oth 05/04/19 00:08 Ordered VTE Pharmacological Contraindications [AST] Routine Oth 05/04/19 00:08 Ordered Resuscitation Status Routine Resus Stat 05/03/19 20:17 Ordered EKG 12 Lead [EK] Routine Ther 05/03/19 18:26 Ordered EKG 12 Lead [EK] Routine Ther 05/03/19 20:20 Ordered Medication Orders Acetaminophen (Tylenol Extra Strength) 500 mg PO Q4H PRN PRN Reason: analgesia/fever Sodium Chloride (Normal Saline) 1,000 mls @ 100 mls/hr IV ASDIRECTED NADYA Last Admin: 05/03/19 23:55 Dose: 100 mls/hr Lorazepam (Ativan) 1 - 4 mg IVPUSH Q1H PRN; Protocol PRN Reason: per CIWA protocol Assessment/Plan Comment:: admit obs: protonix, pepcid, IVF overnight telemetry w/ call parameters CIWA, Ativan as needed repeat Hb in AM, sooner if additional signs of bleeding VTE prophylaxis contraindicated skin cream barrier as needed for groin rash no need for antibiotics at this time hold antihypertensives mag repleted in ER Consult [facility]
[2019-05-04] MEDS: Sodium Chloride 0.9% 1,000 ML IV SCH ×2 (08:55→10:50)
[2019-05-04] MEDS ORDERED: Pantoprazole 40 MG Vial IVPUSH SCH (09:00)
--- NOTE | 2019-05-04 09:20 | PCM.CONS ---
H&P History of Present Illness - General Date of Service: 05/04/19 Admit Problem/Dx: This is a 34-year-old male patient that started having bloody emesis last night. He has start tarry black stools and diarrhea. He said he had some sweating with the vomiting but no fevers, chills. He says he has been on ibuprofen 800 3 times a day for the last 2 weeks because of a renal stone. He has a history of alcohol abuse but states he hasn't had any alcohol for about 2 weeks. He states his friend that he used to drink with his in trouble a lot has ankle brace and Drink. He does have some epigastric pain. He has no history of ulcers doesn't history cholelithiasis. - History of Present Illness Initial Comments - Free Text/Narative: Pt admitted last pm with a hx of hematemasis as well as some blood per rectum. It started as black but did convert to red as he developed diarrhea. No abd pain. Has been taking a fair amount of ibuprofen for some renal colic that has been active the past few weeks. - Related Data Allergies/Adverse Reactions: Allergies Allergy/AdvReac Type Severity Reaction Status Date / Time No Known Allergies Allergy Verified 04/16/19 14:20 Home Medications: Home Meds Ondansetron [Zofran ODT] 4 mg PO Q6H PRN #20 tab.dis 11/29/16 [Rx] Metoprolol Succinate [Toprol Xl] 50 mg PO DAILY 04/16/19 [History] Acetaminophen/oxyCODONE [Percocet 325-5 MG] 1 tab PO Q4H PRN 05/04/19 [History] Finasteride 5 mg PO DAILY 05/04/19 [History] Past Medical History - Past Health History Medical/Surgical History: Denies Medical/Surgical History Cardiovascular History: Reports: Hypertension, SOB on Exertion Other Cardiovascular History: Non-ischemic cardiomyopathy. Respiratory History: Reports: Other (See Below) Other Respiratory History: pulmonary sarcoidosis Gastrointestinal History: Reports: Cholelithiasis Genitourinary History: Reports: Renal Calculus Musculoskeletal History: Reports: Fracture Other Musculoskeletal History: hx fx L fx ribs Neurological History: Reports: Concussion Other Neuro History: History of tremors. Psychiatric History: Reports: Anxiety, Depression Hematologic History: Reports: Blood Transfusion(s) Other Hematologic History: Spleenectomy, unknown etiology. Immunologic History: Reports: Other (See Below) Other Immunologic History: spleen enlarged 2005- Unknown cause? - Infectious Disease History Infectious Disease History: Reports: Chicken Pox - Past Surgical History Head Surgeries/Procedures: Reports: None GI Surgical History: Reports: Other (See Below) (splenectomy) Other Surgical History Comment: splenectomy Social & Family History - Family History Family Medical History: Noncontributory Respiratory: Reports: Other (See Below) Other Respiratory Family Hisory: father- resp failures, mrsa pneum, tracheostomy in place, : Reports: Other (See Below) Other Family History: father- endocrine disorders, Musculoskeletal: Reports: Other (See Below) Other Musculoskeletal Family History: father- quadaparesis (muscle weakness), peripheral neuropathy Neurological: Reports: Neuropathy, Peripheral, Other (See Below) Other Neurological Family History: father- menningitis, headaches, Psychiatric: Reports: Other (See Below) Other Psychiatric Family History: father- anxiety related to his failing health, Other Endocrine/Metabolic Family History: father- endocrine disorder Immunologic: Reports: Other (See Below) Other Immunologic Family History: father- metabolic, immunity disorders, MSSA septicemia - Tobacco Use Smoking Status *Q: Former Smoker Tobacco Use Comment: recently quit using chew - Caffeine Use Caffeine Use: Reports: Soda Caffeine Use Comment: Patient states he drinks caffeine on rare occasion. - Recreational Drug Use Recreational Drug Use: No H&P Review of Systems - Review of Systems: Review Of Systems: See Below General: Reports: Fatigue Pulmonary: Reports: No Symptoms Cardiovascular: Reports: No Symptoms Gastrointestinal: Reports: Black Stool, Hematemesis Exam - Exam Exam: See Below - Vital Signs Vital Signs: Last Vital Signs Temp 98.7 F 05/04/19 06:15 Pulse 92 05/04/19 06:15 Resp 16 05/04/19 06:15 BP 120/89 05/04/19 06:15 Pulse Ox 98 05/04/19 06:15 Weight: 72.575 kg - Exam General: Alert, Oriented, Cooperative. No: Mild Distress Lungs: Clear to Auscultation, Normal Respiratory Effort Cardiovascular: Regular Rate, Regular Rhythm GI/Abdominal Exam: Normal Bowel Sounds, Soft - Patient Data Lab Results Last 24 hrs: Laboratory Results - last 24 hr 05/03/19 05/03/19 05/03/19 Range/Units 18:36 18:36 18:36 WBC 10.3 (4.5-12.0) X10-3/uL RBC 2.95 L (4.30-5.75) x10(6)uL Hgb 10.8 L (13.5-17.8) g/dL Hct 31.0 (30.0-51.3) % MCV 105.2 H (80-96) fL MCH 36.5 H (27.7-33.6) pg MCHC 34.7 (32.2-35.4) g/dL RDW 14.8 (11.5-15.5) % Plt Count 430 H (125-369) X10(3)uL MPV 7.9 (7.4-10.4) fL Neut % (Auto) 76.6 (46-82) % Lymph % (Auto) 13.2 (13-37) % [place] % (Auto) 9.2 (4-12) % Eos % (Auto) 0 L (1.0-5.0) % Baso % (Auto) 1 (0-2) % Neut # (Auto) 7.9 (1.6-8.3) # Lymph # (Auto) 1.4 (0.6-5.0) # [place] # (Auto) 0.9 (0.0-1.3) # Eos # (Auto) 0.0 (0.0-0.8) # Baso # (Auto) 0.1 (0.0-0.2) # PT (8.7-11.1) INR (0.89-1.13) Sodium 140 (135-145) mmol/L Potassium 3.6 (3.5-5.3) mmol/L Chloride 100 (100-110) mmol/L Carbon Dioxide 30 (21-32) mmol/L BUN 29 H D (7-18) mg/dL Creatinine 1.1 (0.70-1.30) mg/dL Est Cr Clr Drug Dosing TNP Estimated GFR (MDRD) > 60 (>60) BUN/Creatinine Ratio 26.4 H (9-20) Glucose 109 (80-116) mg/dL Lactic Acid 1.3 (0.4-2.2) mmol/L Calcium 8.6 (8.6-10.2) mg/dL Magnesium 1.1 L* (1.8-2.5) mg/dL Total Bilirubin 1.0 (0.1-1.3) mg/dL AST 55 H D (5-25) IU/L ALT 41 H D (12-36) U/L Alkaline Phosphatase 149 H (56-112) IU/L Troponin I (<0.017-0.056) ng/mL Total Protein 6.0 (6.0-8.0) g/dL Albumin 2.7 L (3.5-5.2) g/dL Globulin 3.3 g/dL Albumin/Globulin Ratio 0.8 Amylase (25-115) U/L Urine Color (YELLOW) Urine Appearance (CLEAR) Urine pH (5.0-6.5) Ur Specific [place] (1.010-1.025) Urine Protein (NEGATIVE) mg/dL Urine Glucose (UA) (NORMAL) mg/dL Urine Ketones (NEGATIVE) mg/dL Urine Occult Blood (NEGATIVE) Urine Nitrite (NEGATIVE) Urine Bilirubin (NEGATIVE) Urine Urobilinogen (NEGATIVE) mg/dL Ur Leukocyte Esterase (NEGATIVE) Urine RBC (0-5) Urine WBC (0-5) Ur Squamous Epith Cells (NS,R,O) Urine Bacteria (NS) Ethyl Alcohol (<0.03) % 05/03/19 05/03/19 05/03/19 Range/Units 18:36 18:36 18:36 WBC (4.5-12.0) X10-3/uL RBC (4.30-5.75) x10(6)uL Hgb (13.5-17.8) g/dL Hct (30.0-51.3) % MCV (80-96) fL MCH (27.7-33.6) pg MCHC (32.2-35.4) g/dL RDW (11.5-15.5) % Plt Count (125-369) X10(3)uL MPV (7.4-10.4) fL Neut % (Auto) (46-82) % Lymph % (Auto) (13-37) % [place] % (Auto) (4-12) % Eos % (Auto) (1.0-5.0) % Baso % (Auto) (0-2) % Neut # (Auto) (1.6-8.3) # Lymph # (Auto) (0.6-5.0) # [place] # (Auto) (0.0-1.3) # Eos # (Auto) (0.0-0.8) # Baso # (Auto) (0.0-0.2) # PT 10.7 (8.7-11.1) INR 1.10 (0.89-1.13) Sodium (135-145) mmol/L Potassium (3.5-5.3) mmol/L Chloride (100-110) mmol/L Carbon Dioxide (21-32) mmol/L BUN (7-18) mg/dL Creatinine (0.70-1.30) mg/dL Est Cr Clr Drug Dosing Estimated GFR (MDRD) (>60) BUN/Creatinine Ratio (9-20) Glucose (80-116) mg/dL Lactic Acid (0.4-2.2) mmol/L Calcium (8.6-10.2) mg/dL Magnesium (1.8-2.5) mg/dL Total Bilirubin (0.1-1.3) mg/dL AST (5-25) IU/L ALT (12-36) U/L Alkaline Phosphatase (56-112) IU/L Troponin I (<0.017-0.056) ng/mL Total Protein (6.0-8.0) g/dL Albumin (3.5-5.2) g/dL Globulin g/dL Albumin/Globulin Ratio Amylase 18 L (25-115) U/L Urine Color (YELLOW) Urine Appearance (CLEAR) Urine pH (5.0-6.5) Ur Specific [place] (1.010-1.025) Urine Protein (NEGATIVE) mg/dL Urine Glucose (UA) (NORMAL) mg/dL Urine Ketones (NEGATIVE) mg/dL Urine Occult Blood (NEGATIVE) Urine Nitrite (NEGATIVE) Urine Bilirubin (NEGATIVE) Urine Urobilinogen (NEGATIVE) mg/dL Ur Leukocyte Esterase (NEGATIVE) Urine RBC (0-5) Urine WBC (0-5) Ur Squamous Epith Cells (NS,R,O) Urine Bacteria (NS) Ethyl Alcohol < 0.03 (<0.03) % 05/03/19 05/03/19 05/03/19 Range/Units 18:36 19:28 22:43 WBC 9.9 (4.5-12.0) X10-3/uL RBC 2.50 L (4.30-5.75) x10(6)uL Hgb 9.1 L (13.5-17.8) g/dL Hct 25.7 L (30.0-51.3) % MCV 102.8 H (80-96) fL MCH 36.5 H (27.7-33.6) pg MCHC 35.5 H (32.2-35.4) g/dL RDW 14.4 (11.5-15.5) % Plt Count 370 H (125-369) X10(3)uL MPV (7.4-10.4) fL Neut % (Auto) (46-82) % Lymph % (Auto) (13-37) % [place] % (Auto) (4-12) % Eos % (Auto) (1.0-5.0) % Baso % (Auto) (0-2) % Neut # (Auto) (1.6-8.3) # Lymph # (Auto) (0.6-5.0) # [place] # (Auto) (0.0-1.3) # Eos # (Auto) (0.0-0.8) # Baso # (Auto) (0.0-0.2) # PT (8.7-11.1) INR (0.89-1.13) Sodium (135-145) mmol/L Potassium (3.5-5.3) mmol/L Chloride (100-110) mmol/L Carbon Dioxide (21-32) mmol/L BUN (7-18) mg/dL Creatinine (0.70-1.30) mg/dL Est Cr Clr Drug Dosing Estimated GFR (MDRD) (>60) BUN/Creatinine Ratio (9-20) Glucose (80-116) mg/dL Lactic Acid (0.4-2.2) mmol/L Calcium (8.6-10.2) mg/dL Magnesium (1.8-2.5) mg/dL Total Bilirubin (0.1-1.3) mg/dL AST (5-25) IU/L ALT (12-36) U/L Alkaline Phosphatase (56-112) IU/L Troponin I 0.019 (<0.017-0.056) ng/mL Total Protein (6.0-8.0) g/dL Albumin (3.5-5.2) g/dL Globulin g/dL Albumin/Globulin Ratio Amylase (25-115) U/L Urine Color Yellow (YELLOW) Urine Appearance Clear (CLEAR) Urine pH 6.5 (5.0-6.5) Ur Specific [place] 1.010 (1.010-1.025) Urine Protein Negative (NEGATIVE) mg/dL Urine Glucose (UA) Normal (NORMAL) mg/dL Urine Ketones Negative (NEGATIVE) mg/dL Urine Occult Blood Moderate (NEGATIVE) Urine Nitrite Negative (NEGATIVE) Urine Bilirubin Negative (NEGATIVE) Urine Urobilinogen 0.2 (NEGATIVE) mg/dL Ur Leukocyte Esterase Negative (NEGATIVE) Urine RBC 5-10 H (0-5) Urine WBC 0-5 (0-5) Ur Squamous Epith Cells Few H (NS,R,O) Urine Bacteria Few H (NS) Ethyl Alcohol (<0.03) % 05/04/19 05/04/19 Range/Units 06:35 06:35 WBC 8.6 (4.5-12.0) X10-3/uL RBC 2.47 L (4.30-5.75) x10(6)uL Hgb 8.8 L (13.5-17.8) g/dL Hct 25.9 L (30.0-51.3) % MCV 105.1 H (80-96) fL MCH 35.9 H (27.7-33.6) pg MCHC 34.1 (32.2-35.4) g/dL RDW 14.9 (11.5-15.5) % Plt Count 370 H (125-369) X10(3)uL MPV (7.4-10.4) fL Neut % (Auto) (46-82) % Lymph % (Auto) (13-37) % [place] % (Auto) (4-12) % Eos % (Auto) (1.0-5.0) % Baso % (Auto) (0-2) % Neut # (Auto) (1.6-8.3) # Lymph # (Auto) (0.6-5.0) # [place] # (Auto) (0.0-1.3) # Eos # (Auto) (0.0-0.8) # Baso # (Auto) (0.0-0.2) # PT (8.7-11.1) INR (0.89-1.13) Sodium 144 (135-145) mmol/L Potassium 3.4 L (3.5-5.3) mmol/L Chloride 106 D (100-110) mmol/L Carbon Dioxide 31 (21-32) mmol/L BUN 23 H (7-18) mg/dL Creatinine 0.9 (0.70-1.30) mg/dL Est Cr Clr Drug Dosing 112.94 Estimated GFR (MDRD) > 60 (>60) BUN/Creatinine Ratio 25.6 H (9-20) Glucose 85 (80-116) mg/dL Lactic Acid (0.4-2.2) mmol/L Calcium 7.6 L (8.6-10.2) mg/dL Magnesium (1.8-2.5) mg/dL Total Bilirubin (0.1-1.3) mg/dL AST (5-25) IU/L ALT (12-36) U/L Alkaline Phosphatase (56-112) IU/L Troponin I (<0.017-0.056) ng/mL Total Protein (6.0-8.0) g/dL Albumin (3.5-5.2) g/dL Globulin g/dL Albumin/Globulin Ratio Amylase (25-115) U/L Urine Color (YELLOW) Urine Appearance (CLEAR) Urine pH (5.0-6.5) Ur Specific [place] (1.010-1.025) Urine Protein (NEGATIVE) mg/dL Urine Glucose (UA) (NORMAL) mg/dL Urine Ketones (NEGATIVE) mg/dL Urine Occult Blood (NEGATIVE) Urine Nitrite (NEGATIVE) Urine Bilirubin (NEGATIVE) Urine Urobilinogen (NEGATIVE) mg/dL Ur Leukocyte Esterase (NEGATIVE) Urine RBC (0-5) Urine WBC (0-5) Ur Squamous Epith Cells (NS,R,O) Urine Bacteria (NS) Ethyl Alcohol (<0.03) % Result Diagrams: 05/04/19 06:35 05/04/19 06:35 Consult PN Assessment/Plan Procedures: Procedures ANESTH SURG UPPER ABDOMEN (11/23/16) ASSAY OF CK (CPK) (04/16/19) ASSAY OF LACTIC ACID (04/16/19) ASSAY OF MAGNESIUM (04/16/19) ASSAY OF TROPONIN QUANT (04/16/19) BLOOD CULTURE FOR BACTERIA (04/15/19) COMPLETE CBC W/AUTO DIFF WBC (04/16/19) CT ABD & PELVIS W/O CONTRAST (04/15/19) CT HEAD/BRAIN W/O DYE (04/16/19) CT THORAX W/O & W/DYE (09/18/18) CULTURE SCREEN ONLY (03/30/18) DRUG TEST PRSMV DIR OPT OBS (04/16/19) ELECTROCARDIOGRAM REPORT (04/16/19) ELECTROCARDIOGRAM TRACING (04/16/19) EMERGENCY DEPT VISIT (04/16/19) EMERGENCY DEPT VISIT (04/16/19) EMERGENCY DEPT VISIT (04/15/19) EMERGENCY DEPT VISIT (04/15/19) EMERGENCY DEPT VISIT (11/23/16) EMERGENCY DEPT VISIT (08/13/15) EMERGENCY DEPT VISIT (08/13/15) HEPATIC FUNCTION PANEL (04/15/19) HYDRATE IV INFUSION ADD-ON (04/16/19) INITIAL HOSPITAL CARE (11/23/16) METABOLIC PANEL TOTAL CA (04/16/19) ROUTINE VENIPUNCTURE (04/16/19) RPR S/N/AX/GEN/TRNK 2.5CM/< (08/13/15) RPR S/N/AX/GEN/TRNK2.6-7.5CM (08/13/15) STREP A ASSAY W/OPTIC (03/30/18) THER/PROPH/DIAG IV INF INIT (04/16/19) TX/PRO/DX INJ NEW DRUG ADDON (04/16/19) URINALYSIS AUTO W/SCOPE (04/15/19) URINE CULTURE/COLONY COUNT (04/15/19) X-RAY EXAM OF FINGER(S) (08/13/15) X-RAY EXAM OF TOE(S) (04/15/19) (1) GI bleed SNOMED Code(s): 59334449 Code(s): K92.2 - GASTROINTESTINAL HEMORRHAGE, UNSPECIFIED Current Visit: Yes Qualifiers: Gastritis type: acute gastritis Assessment:: Most likely from NSAID USE Problem List Initiated/Reviewed/Updated: Yes My Orders Last 24 Hours: My Active Orders 05/04/19 09:15 Verify Patient Consent Obtain [RC] ASDIRECTED Plan: EGD Procedure and risks explained to the pt to include bleeding infection and perforation. He expressed understanding and asks us to proceed.
[2019-05-04] MEDS ORDERED: Sodium Chloride 0.9% 20 ML SDV FLUSH PRN (09:31)
--- NOTE | 2019-05-04 10:26 | PCM.OPNOTE ---
- General Post-Op/Procedure Note Date of Surgery/Procedure: 05/04/19 Operative Procedure(s): egd with bx Findings: duodenal ulcers x 3 Pre Op Diagnosis: upper gi bleed. Post-Op Diagnosis: duodenal ulcers Anesthesia Technique: MAC Primary Surgeon: Parth Pisano Anesthesia Provider: Tobias Chaidez Pathology: duodenum Complications: None Condition: Fair Free Text/Narrative:: Intake & Output 05/03/19 05/04/19 05/04/19 22:59 06:59 14:59 Intake Total 1100 673 Output Total 100 0 Balance 1000 673 see dictation
[2019-05-04] MEDS: Sucralfate Suspension 1 GM/10 ML Cup PO SCH ×2 (10:57→17:18)
--- NOTE | 2019-05-04 11:24 | OR ---
DATE OF OPERATION: 05/04/2019 SURGEON: Parth Pisano MD PROCEDURE PERFORMED: Esophagogastroduodenoscopy. PREOPERATIVE DIAGNOSIS: Upper gastrointestinal bleed. POSTOPERATIVE DIAGNOSIS: Duodenal ulcers x3. INDICATIONS FOR PROCEDURE: This is a 34-year-old white male who was admitted yesterday with a history of hematemesis and some bleeding per rectum. He has been using Motrin quite heavily in the past couple of weeks due to some issues with renal colic. He was offered and accepted an esophagogastroduodenoscopy. DESCRIPTION OF OPERATION: After an excellent IV sedation was administered, bite block was inserted. Flexible endoscope was passed down the patient's esophagus into the stomach. Stomach was insufflated. Scope passed through the pylorus to the second portion of the duodenum and slowly withdrawn. The following findings were noted. In the duodenum, in the first portion, there were 3 ulcers that were visible. No sequela of bleeding was encountered. No visible vessels or blood clots. Two were what appeared to be anterior and one was posterior. Biopsies were taken of the surrounding tissue, as well as photos. Stomach had some mild irritation, but no marked abnormality. Esophagus was essentially unremarkable. The patient tolerated the procedure well. RECOMMENDATIONS: Avoidance of nonsteroidal anti-inflammatory drugs, Carafate, and PPI. Followup endoscopy in 6 weeks to ensure ulcer healing. /[id number] /SLOANEL
[2019-05-04 17:24] VITALS: BP 121/84; PULSE 98
--- NOTE | 2019-05-04 18:05 | PCM.SN ---
- Free Text/Narrative Note: Patient had a EGD that showed duodenal ulcers. 2 more hemoglobins drawn in the afternoon when his lower and then it came back up. Patient denies any active bleeding, abdominal pain nausea or vomiting. We'll discharge to home on Carafate , proton pump inhibitor, iron. I told avoid alcohol and NSAIDs.
--- NOTE | 2019-05-04 18:06 | PCM.DCSUM1 ---
Discharge Summary - Hospital Course Free Text/Narrative:: Hospital course-patient was placed on fluids and nothing by mouth. Serial hemoglobins were done any start to drop hemoglobin he had black tarry stools as well as vomiting of better. He was evaluated by Dr. Pisano which recommended a EGD which showed multiple small duodenal ulcers were not actively bleeding. We took him back in October him and watch him to the rest after his hemoglobin stabilized. We'll discharge him home on Carafate, Protonix and iron. He'll recheck with Dr. Jorge Pisano in 1 week. Told to avoid NSAIDs, alcohol and spicy foods Brief History: This is a 34-year-old male patient that started having bloody emesis last night. He has start tarry black stools and diarrhea. He said he had some sweating with the vomiting but no fevers, chills. He says he has been on ibuprofen 800 3 times a day for the last 2 weeks because of a renal stone. He has a history of alcohol abuse but states he hasn't had any alcohol for about 2 weeks. He states his friend that he used to drink with his in trouble a lot has ankle brace and Drink. He does have some epigastric pain. He has no history of ulcers doesn't history cholelithiasis. Diagnosis: Stroke: No - Discharge Data Discharge Date: 05/04/19 Discharge Disposition: Home, Self-Care 01 Condition: Fair - Discharge Diagnosis/Problem(s) (1) Anemia SNOMED Code(s): 905084853 ICD Code: D64.9 - ANEMIA, UNSPECIFIED Status: Acute Priority: High Current Visit: Yes Qualifiers: Anemia type: other cause Other causes of anemia: acute posthemorrhagic Qualified Code(s): D62 - Acute posthemorrhagic anemia (2) Alcohol use disorder SNOMED Code(s): 6804153 ICD Code: [id number] - Status: Chronic Priority: High Current Visit: Yes (3) S/P splenectomy SNOMED Code(s): 620610046, 029996202, 047221024 Status: Acute Current Visit: No (4) Duodenal ulcer SNOMED Code(s): 89792895 ICD Code: K26.9 - DUODENAL ULCER, UNSP ACUTE OR CHRONIC, W/O HEMOR OR PERF Status: Acute Current Visit: Yes - Patient Summary/Data Operative Procedure(s) Performed: egd with bx Consults: Consultations 05/04/19 08:50 Consult to Physician [CONS] Routine Consulting Provider: Parth Pisano Call Completed to Consulting Physician: Yes Reason for Consult: Upper GI bleed - Patient Instructions Diet: Regular Diet as Tolerated Activity: As Tolerated Driving: May Drive Today Showering/Bathing: May Shower Notify Provider of: Increased Pain, Nausea and/or Vomiting Other/Special Instructions: 1. Recheck with Dr. Patel and Dr. Pisano in 1 week. - Discharge Plan *PRESCRIPTION DRUG MONITORING PROGRAM REVIEWED*: Not Applicable *COPY OF PRESCRIPTION DRUG MONITORING REPORT IN PATIENT ELLIE: Not Applicable Prescriptions/Med Rec: Ferrous Gluconate [Iron] 240 mg PO BID #60 tablet Pantoprazole Sodium [Protonix] 40 mg PO DAILY #30 suspdr.pkt Sucralfate [Carafate] 1 gm PO QID #120 tablet Home Medications: Home Meds Ondansetron [Zofran ODT] 4 mg PO Q6H PRN #20 tab.dis 11/29/16 [Rx] Metoprolol Succinate [Toprol Xl] 50 mg PO DAILY 04/16/19 [History] Acetaminophen/oxyCODONE [Percocet 325-5 MG] 1 tab PO Q4H PRN 05/04/19 [History] Ferrous Gluconate [Iron] 240 mg PO BID #60 tablet 05/04/19 [Rx] Finasteride 5 mg PO DAILY 05/04/19 [History] Pantoprazole Sodium [Protonix] 40 mg PO DAILY #30 suspdr.pkt 05/04/19 [Rx] Sucralfate [Carafate] 1 gm PO QID #120 tablet 05/04/19 [Rx] Forms: ED Department Discharge Referrals: PCP,None [Primary Care Provider] - - Discharge Summary/Plan Comment DC Time >30 min.: No - Patient Data Vitals - Most Recent: Last Vital Signs Temp 98.8 F 05/04/19 16:00 Pulse 98 05/04/19 16:00 Resp 18 05/04/19 16:00 BP 121/84 05/04/19 16:00 Pulse Ox 99 05/04/19 16:00 Weight - Most Recent: 160 lb I&O - Last 24 hours: Intake & Output 05/04/19 05/04/19 05/04/19 06:59 14:59 22:59 Intake Total 673 Output Total 0 Balance 673 Lab Results - Last 24 hrs: Laboratory Results - last 24 hr 05/03/19 05/03/19 05/03/19 Range/Units 18:36 18:36 18:36 WBC 10.3 (4.5-12.0) X10-3/uL RBC 2.95 L (4.30-5.75) x10(6)uL Hgb 10.8 L (13.5-17.8) g/dL Hct 31.0 (30.0-51.3) % MCV 105.2 H (80-96) fL MCH 36.5 H (27.7-33.6) pg MCHC 34.7 (32.2-35.4) g/dL RDW 14.8 (11.5-15.5) % Plt Count 430 H (125-369) X10(3)uL MPV 7.9 (7.4-10.4) fL Neut % (Auto) 76.6 (46-82) % Lymph % (Auto) 13.2 (13-37) % Moore % (Auto) 9.2 (4-12) % Eos % (Auto) 0 L (1.0-5.0) % Baso % (Auto) 1 (0-2) % Neut # (Auto) 7.9 (1.6-8.3) # Lymph # (Auto) 1.4 (0.6-5.0) # Moore # (Auto) 0.9 (0.0-1.3) # Eos # (Auto) 0.0 (0.0-0.8) # Baso # (Auto) 0.1 (0.0-0.2) # PT (8.7-11.1) INR (0.89-1.13) Sodium 140 (135-145) mmol/L Potassium 3.6 (3.5-5.3) mmol/L Chloride 100 (100-110) mmol/L Carbon Dioxide 30 (21-32) mmol/L BUN 29 H D (7-18) mg/dL Creatinine 1.1 (0.70-1.30) mg/dL Est Cr Clr Drug Dosing TNP Estimated GFR (MDRD) > 60 (>60) BUN/Creatinine Ratio 26.4 H (9-20) Glucose 109 (80-116) mg/dL Lactic Acid 1.3 (0.4-2.2) mmol/L Calcium 8.6 (8.6-10.2) mg/dL Magnesium 1.1 L* (1.8-2.5) mg/dL Total Bilirubin 1.0 (0.1-1.3) mg/dL AST 55 H D (5-25) IU/L ALT 41 H D (12-36) U/L Alkaline Phosphatase 149 H (56-112) IU/L Troponin I (<0.017-0.056) ng/mL Total Protein 6.0 (6.0-8.0) g/dL Albumin 2.7 L (3.5-5.2) g/dL Globulin 3.3 g/dL Albumin/Globulin Ratio 0.8 Amylase (25-115) U/L Urine Color (YELLOW) Urine Appearance (CLEAR) Urine pH (5.0-6.5) Ur Specific [place] (1.010-1.025) Urine Protein (NEGATIVE) mg/dL Urine Glucose (UA) (NORMAL) mg/dL Urine Ketones (NEGATIVE) mg/dL Urine Occult Blood (NEGATIVE) Urine Nitrite (NEGATIVE) Urine Bilirubin (NEGATIVE) Urine Urobilinogen (NEGATIVE) mg/dL Ur Leukocyte Esterase (NEGATIVE) Urine RBC (0-5) Urine WBC (0-5) Ur Squamous Epith Cells (NS,R,O) Urine Bacteria (NS) Ethyl Alcohol (<0.03) % 05/03/19 05/03/19 05/03/19 Range/Units 18:36 18:36 18:36 WBC (4.5-12.0) X10-3/uL RBC (4.30-5.75) x10(6)uL Hgb (13.5-17.8) g/dL Hct (30.0-51.3) % MCV (80-96) fL MCH (27.7-33.6) pg MCHC (32.2-35.4) g/dL RDW (11.5-15.5) % Plt Count (125-369) X10(3)uL MPV (7.4-10.4) fL Neut % (Auto) (46-82) % Lymph % (Auto) (13-37) % Moore % (Auto) (4-12) % Eos % (Auto) (1.0-5.0) % Baso % (Auto) (0-2) % Neut # (Auto) (1.6-8.3) # Lymph # (Auto) (0.6-5.0) # Moore # (Auto) (0.0-1.3) # Eos # (Auto) (0.0-0.8) # Baso # (Auto) (0.0-0.2) # PT 10.7 (8.7-11.1) INR 1.10 (0.89-1.13) Sodium (135-145) mmol/L Potassium (3.5-5.3) mmol/L Chloride (100-110) mmol/L Carbon Dioxide (21-32) mmol/L BUN (7-18) mg/dL Creatinine (0.70-1.30) mg/dL Est Cr Clr Drug Dosing Estimated GFR (MDRD) (>60) BUN/Creatinine Ratio (9-20) Glucose (80-116) mg/dL Lactic Acid (0.4-2.2) mmol/L Calcium (8.6-10.2) mg/dL Magnesium (1.8-2.5) mg/dL Total Bilirubin (0.1-1.3) mg/dL AST (5-25) IU/L ALT (12-36) U/L Alkaline Phosphatase (56-112) IU/L Troponin I (<0.017-0.056) ng/mL Total Protein (6.0-8.0) g/dL Albumin (3.5-5.2) g/dL Globulin g/dL Albumin/Globulin Ratio Amylase 18 L (25-115) U/L Urine Color (YELLOW) Urine Appearance (CLEAR) Urine pH (5.0-6.5) Ur Specific [place] (1.010-1.025) Urine Protein (NEGATIVE) mg/dL Urine Glucose (UA) (NORMAL) mg/dL Urine Ketones (NEGATIVE) mg/dL Urine Occult Blood (NEGATIVE) Urine Nitrite (NEGATIVE) Urine Bilirubin (NEGATIVE) Urine Urobilinogen (NEGATIVE) mg/dL Ur Leukocyte Esterase (NEGATIVE) Urine RBC (0-5) Urine WBC (0-5) Ur Squamous Epith Cells (NS,R,O) Urine Bacteria (NS) Ethyl Alcohol < 0.03 (<0.03) % 05/03/19 05/03/19 05/03/19 Range/Units 18:36 19:28 22:43 WBC 9.9 (4.5-12.0) X10-3/uL RBC 2.50 L (4.30-5.75) x10(6)uL Hgb 9.1 L (13.5-17.8) g/dL Hct 25.7 L (30.0-51.3) % MCV 102.8 H (80-96) fL MCH 36.5 H (27.7-33.6) pg MCHC 35.5 H (32.2-35.4) g/dL RDW 14.4 (11.5-15.5) % Plt Count 370 H (125-369) X10(3)uL MPV (7.4-10.4) fL Neut % (Auto) (46-82) % Lymph % (Auto) (13-37) % Moore % (Auto) (4-12) % Eos % (Auto) (1.0-5.0) % Baso % (Auto) (0-2) % Neut # (Auto) (1.6-8.3) # Lymph # (Auto) (0.6-5.0) # Moore # (Auto) (0.0-1.3) # Eos # (Auto) (0.0-0.8) # Baso # (Auto) (0.0-0.2) # PT (8.7-11.1) INR (0.89-1.13) Sodium (135-145) mmol/L Potassium (3.5-5.3) mmol/L Chloride (100-110) mmol/L Carbon Dioxide (21-32) mmol/L BUN (7-18) mg/dL Creatinine (0.70-1.30) mg/dL Est Cr Clr Drug Dosing Estimated GFR (MDRD) (>60) BUN/Creatinine Ratio (9-20) Glucose (80-116) mg/dL Lactic Acid (0.4-2.2) mmol/L Calcium (8.6-10.2) mg/dL Magnesium (1.8-2.5) mg/dL Total Bilirubin (0.1-1.3) mg/dL AST (5-25) IU/L ALT (12-36) U/L Alkaline Phosphatase (56-112) IU/L Troponin I 0.019 (<0.017-0.056) ng/mL Total Protein (6.0-8.0) g/dL Albumin (3.5-5.2) g/dL Globulin g/dL Albumin/Globulin Ratio Amylase (25-115) U/L Urine Color Yellow (YELLOW) Urine Appearance Clear (CLEAR) Urine pH 6.5 (5.0-6.5) Ur Specific [place] 1.010 (1.010-1.025) Urine Protein Negative (NEGATIVE) mg/dL Urine Glucose (UA) Normal (NORMAL) mg/dL Urine Ketones Negative (NEGATIVE) mg/dL Urine Occult Blood Moderate (NEGATIVE) Urine Nitrite Negative (NEGATIVE) Urine Bilirubin Negative (NEGATIVE) Urine Urobilinogen 0.2 (NEGATIVE) mg/dL Ur Leukocyte Esterase Negative (NEGATIVE) Urine RBC 5-10 H (0-5) Urine WBC 0-5 (0-5) Ur Squamous Epith Cells Few H (NS,R,O) Urine Bacteria Few H (NS) Ethyl Alcohol (<0.03) % 05/04/19 05/04/19 05/04/19 Range/Units 06:35 06:35 09:10 WBC 8.6 (4.5-12.0) X10-3/uL RBC 2.47 L (4.30-5.75) x10(6)uL Hgb 8.8 L 8.3 L (13.5-17.8) g/dL Hct 25.9 L 24.2 L (30.0-51.3) % MCV 105.1 H (80-96) fL MCH 35.9 H (27.7-33.6) pg MCHC 34.1 (32.2-35.4) g/dL RDW 14.9 (11.5-15.5) % Plt Count 370 H (125-369) X10(3)uL MPV (7.4-10.4) fL Neut % (Auto) (46-82) % Lymph % (Auto) (13-37) % Moore % (Auto) (4-12) % Eos % (Auto) (1.0-5.0) % Baso % (Auto) (0-2) % Neut # (Auto) (1.6-8.3) # Lymph # (Auto) (0.6-5.0) # Moore # (Auto) (0.0-1.3) # Eos # (Auto) (0.0-0.8) # Baso # (Auto) (0.0-0.2) # PT (8.7-11.1) INR (0.89-1.13) Sodium 144 (135-145) mmol/L Potassium 3.4 L (3.5-5.3) mmol/L Chloride 106 D (100-110) mmol/L Carbon Dioxide 31 (21-32) mmol/L BUN 23 H (7-18) mg/dL Creatinine 0.9 (0.70-1.30) mg/dL Est Cr Clr Drug Dosing 112.94 Estimated GFR (MDRD) > 60 (>60) BUN/Creatinine Ratio 25.6 H (9-20) Glucose 85 (80-116) mg/dL Lactic Acid (0.4-2.2) mmol/L Calcium 7.6 L (8.6-10.2) mg/dL Magnesium (1.8-2.5) mg/dL Total Bilirubin (0.1-1.3) mg/dL AST (5-25) IU/L ALT (12-36) U/L Alkaline Phosphatase (56-112) IU/L Troponin I (<0.017-0.056) ng/mL Total Protein (6.0-8.0) g/dL Albumin (3.5-5.2) g/dL Globulin g/dL Albumin/Globulin Ratio Amylase (25-115) U/L Urine Color (YELLOW) Urine Appearance (CLEAR) Urine pH (5.0-6.5) Ur Specific [place] (1.010-1.025) Urine Protein (NEGATIVE) mg/dL Urine Glucose (UA) (NORMAL) mg/dL Urine Ketones (NEGATIVE) mg/dL Urine Occult Blood (NEGATIVE) Urine Nitrite (NEGATIVE) Urine Bilirubin (NEGATIVE) Urine Urobilinogen (NEGATIVE) mg/dL Ur Leukocyte Esterase (NEGATIVE) Urine RBC (0-5) Urine WBC (0-5) Ur Squamous Epith Cells (NS,R,O) Urine Bacteria (NS) Ethyl Alcohol (<0.03) % 05/04/19 05/04/19 Range/Units 14:20 17:12 WBC (4.5-12.0) X10-3/uL RBC (4.30-5.75) x10(6)uL Hgb 7.7 L 8.0 L (13.5-17.8) g/dL Hct 22.3 L 22.5 L (30.0-51.3) % MCV (80-96) fL MCH (27.7-33.6) pg MCHC (32.2-35.4) g/dL RDW (11.5-15.5) % Plt Count (125-369) X10(3)uL MPV (7.4-10.4) fL Neut % (Auto) (46-82) % Lymph % (Auto) (13-37) % Moore % (Auto) (4-12) % Eos % (Auto) (1.0-5.0) % Baso % (Auto) (0-2) % Neut # (Auto) (1.6-8.3) # Lymph # (Auto) (0.6-5.0) # Moore # (Auto) (0.0-1.3) # Eos # (Auto) (0.0-0.8) # Baso # (Auto) (0.0-0.2) # PT (8.7-11.1) INR (0.89-1.13) Sodium (135-145) mmol/L Potassium (3.5-5.3) mmol/L Chloride (100-110) mmol/L Carbon Dioxide (21-32) mmol/L BUN (7-18) mg/dL Creatinine (0.70-1.30) mg/dL Est Cr Clr Drug Dosing Estimated GFR (MDRD) (>60) BUN/Creatinine Ratio (9-20) Glucose (80-116) mg/dL Lactic Acid (0.4-2.2) mmol/L Calcium (8.6-10.2) mg/dL Magnesium (1.8-2.5) mg/dL Total Bilirubin (0.1-1.3) mg/dL AST (5-25) IU/L ALT (12-36) U/L Alkaline Phosphatase (56-112) IU/L Troponin I (<0.017-0.056) ng/mL Total Protein (6.0-8.0) g/dL Albumin (3.5-5.2) g/dL Globulin g/dL Albumin/Globulin Ratio Amylase (25-115) U/L Urine Color (YELLOW) Urine Appearance (CLEAR) Urine pH (5.0-6.5) Ur Specific [place] (1.010-1.025) Urine Protein (NEGATIVE) mg/dL Urine Glucose (UA) (NORMAL) mg/dL Urine Ketones (NEGATIVE) mg/dL Urine Occult Blood (NEGATIVE) Urine Nitrite (NEGATIVE) Urine Bilirubin (NEGATIVE) Urine Urobilinogen (NEGATIVE) mg/dL Ur Leukocyte Esterase (NEGATIVE) Urine RBC (0-5) Urine WBC (0-5) Ur Squamous Epith Cells (NS,R,O) Urine Bacteria (NS) Ethyl Alcohol (<0.03) % Med Orders - Current: Current Medications Acetaminophen (Tylenol Extra Strength) 500 mg PO Q4H PRN PRN Reason: analgesia/fever Sodium Chloride (Normal Saline) 1,000 mls @ 100 mls/hr IV ASDIRECTED [facility] Last Admin: 05/04/19 10:50 Dose: 100 mls/hr Lorazepam (Ativan) 1 - 4 mg IVPUSH Q1H PRN; Protocol PRN Reason: per [facility] protocol Pantoprazole Sodium (Protonix Iv) 40 mg IVPUSH DAILY [facility] Last Admin: 05/04/19 09:29 Dose: 40 mg Sodium Chloride (Normal Saline) 10 ml FLUSH ASDIRECTED PRN PRN Reason: IV Use Sucralfate (Carafate) 1 gm PO QIDACANDBED [facility] Last Admin: 05/04/19 17:18 Dose: 1 gm Discontinued Medications Magnesium Sulfate 2 gm/ Premix 50 mls @ 150 mls/hr IV ONETIME ONE Stop: 05/03/19 19:24 Last Admin: 05/03/19 19:20 Dose: 150 mls/hr Sodium Chloride (Normal Saline) 1,000 mls @ 500 mls/hr IV ASDIRECTED [facility] Last Infusion: 05/03/19 22:30 Dose: Infused Famotidine 20 mg/ Premix 50 mls @ 200 mls/hr IV ONETIME ONE Stop: 05/03/19 21:04 Last Admin: 05/03/19 22:26 Dose: 200 mls/hr Lorazepam (Ativan) 1 mg IVPUSH ONETIME ONE Stop: 05/03/19 22:05 Last Admin: 05/03/19 22:21 Dose: 1 mg Pantoprazole Sodium (Protonix Iv) 40 mg IVPUSH ONETIME ONE Stop: 05/03/19 21:04 Last Admin: 05/03/19 22:15 Dose: 40 mg *Q Meaningful Use (DIS) - VTE *Q VTE Pharmacological Contraindications *Q: Risk of Bleeding
[2019-05-04] MEDS ORDERED: Propofol 200 MG/20 ML SDV IV ONE (18:44)
[2019-05-04] MEDS ORDERED: Labetalol 100 MG/20 ML MDV IV ONE (18:44)
--- NOTE | 2019-05-05 11:10 | CR ---
INDICATION: Shortness of breath, status post splenectomy. CHEST: PA and lateral views of the chest were obtained 05/03/19, and revealed evidence of healed fracture posterolaterally on the left. A definite active infiltrate or effusion was not identified. There is a mild dextroconvex scoliosis of the upper thoracic spine. The heart and mediastinum are unremarkable. IMPRESSION: No acute process. MTDD
== END 2019-05-04 18:45 | disposition home or self-care (01) ==
LOC: FB.ED 18:00 → FB.MS 20:15
PROVIDERS: ADMIT Family Medicine; ATTEND Family Medicine
DX: D62 Acute posthemorrhagic anemia (principal); K26.0 Acute duodenal ulcer with hemorrhage; K29.71 Gastritis, unspecified, with bleeding; I10 Essential (primary) hypertension; Z90.81 Acquired absence of spleen; Z79.899 Other long term (current) drug therapy; Z87.891 Personal history of nicotine dependence
CPT/HCPCS: 36415; 43239; 71046; 80048; 80053; 81001; 82150; 83605; 83735; 84484; 85014; 85018; 85025; 85027; 85610; 87040; 88305; 93005; 96361; 96365; 96367; 96375; 96376; 99285; A9270; C9113; G0378; G0480; J2060; J2704; J3475; J3490; J7030

== ENCOUNTER → 2019-07-19 | Day surgery (SDC) | payer BC ==
[~2019-07-19] MED LIST: Lactated Ringers 1,000 ML IV SCH; Lidocaine 2% 5 ML SDV INJECT ONE; Propofol 200 MG/20 ML SDV IV ONE; Sodium Chloride 0.9% 10 ML Syringe FLUSH PRN
[2019-07-19 07:58] VITALS: BP 123/90; PULSE 98
[2019-07-19] MEDS: Lactated Ringers 1,000 ML IV SCH (08:05)
--- NOTE | 2019-07-19 08:43 | PCM.OPNOTE ---
- General Post-Op/Procedure Note Date of Surgery/Procedure: 07/19/19 Operative Procedure(s): egd with bx Findings: healed duodenal ulcer gastritis Pre Op Diagnosis: hx of duodenal ulcer Post-Op Diagnosis: healed duodenal ulcer. gastritis Anesthesia Technique: FROILAN Primary Surgeon: Parth Pisano Anesthesia Provider: Jing Mike Pathology: stomach Complications: None Condition: Good Free Text/Narrative:: see dictation
[2019-07-19] MEDS: Acetaminophen 500 MG Tab PO ONE (08:56)
--- NOTE | 2019-07-19 11:25 | OR ---
DATE OF OPERATION: 07/19/2019 SURGEON: Parth Pisano MD PROCEDURE PERFORMED: Esophagogastroduodenoscopy with cold forceps biopsy. PREOPERATIVE DIAGNOSIS: Personal history of duodenal ulcer. POSTOPERATIVE DIAGNOSIS: Healed duodenal ulcer and gastritis. INDICATIONS FOR PROCEDURE: This is a 34-year-old white male who was found to have a duodenal ulcer, presents now for followup endoscopy. DESCRIPTION OF PROCEDURE: After an excellent IV sedation was administered, the bite block was inserted. The flexible endoscope was passed without difficulty down the patient's esophagus into the stomach. Stomach was insufflated. Scope was passed through the pylorus, second portion of duodenum, and slowly withdrawn. The following findings were noted: Duodenum, ulcer is healed. The stomach demonstrated mild gastritis, several biopsies were taken. Esophagus unremarkable. Stomach was deflated as the scope was removed. Patient tolerated the procedure well. Results by letter. /[id number] /MODL
== END | disposition home or self-care (01) ==
LOC: FB.SDS 07:13
PROVIDERS: ATTEND Surgery
DX: K29.50 Unspecified chronic gastritis without bleeding (principal); Z87.19 Personal history of other diseases of the digestive system; Z79.899 Other long term (current) drug therapy
CPT/HCPCS: 43239; 88305; 88342; A9270; J2001; J2704; J7120

== ENCOUNTER 2019-11-30 12:33 | Emergency (ER) | payer BC ==
[2019-11-30] MEDS ORDERED: Ondansetron 4 MG Tab.DIS PO ONE (12:59)
--- NOTE | 2019-11-30 13:03 | EDM.PDOC ---
ED HPI GENERAL MEDICAL PROBLEM - General Chief Complaint: Skin Complaint Stated Complaint: CAN'T KEEP FOOD DOWN, SOB,HEADACHE Time Seen by Provider: 11/30/19 13:20 Source of Information: Reports: Patient History Limitations: Reports: No Limitations - History of Present Illness INITIAL COMMENTS - FREE TEXT/NARRATIVE: Patient presented to the ED because of persistent N/V x2 days and couldn't keep any thing down. He also c/o frontal headache and nasal congestion . there is no fever or chills,cough or cold. - Related Data Allergies Allergy/AdvReac Type Severity Reaction Status Date / Time No Known Allergies Allergy Verified 11/30/19 13:11 Home Meds: Home Meds Metoprolol Succinate [Toprol Xl] 50 mg PO DAILY 04/16/19 [History] Pantoprazole Sodium [Protonix] 40 mg PO DAILY #90 tablet.dr 06/23/19 [Rx] Ferrous Gluconate [Iron] 240 mg PO DAILY 07/15/19 [History] Ondansetron [Zofran ODT] 4 mg PO TID PRN 07/15/19 [History] Sucralfate [Carafate] 1 gm PO QID 07/15/19 [History] Ondansetron [Zofran ODT] 4 mg PO Q4H PRN #10 tab.dis 11/30/19 [Rx] Past Medical History - Past Health History Medical/Surgical History: Denies Medical/Surgical History Cardiovascular History: Reports: Heart Failure, Hypertension, SOB on Exertion Other Cardiovascular History: Non-ischemic cardiomyopathy. Respiratory History: Reports: Other (See Below) Other Respiratory History: pulmonary sarcoidosis Gastrointestinal History: Reports: Cholelithiasis, GERD, PUD Other Gastrointestinal History: bleeding ulcer Genitourinary History: Reports: Renal Calculus Musculoskeletal History: Reports: Arthritis, Fracture Other Musculoskeletal History: hx fx L fx ribs, L gt toe, occasional tremors Neurological History: Reports: Concussion, Seizure Other Neuro History: History of tremors. Psychiatric History: Reports: Anxiety, Depression Other Psychiatric History: hx ETOH abuse Endocrine/Metabolic History: Reports: None Hematologic History: Reports: Anemia, Blood Transfusion(s) Other Hematologic History: Spleenectomy, unknown etiology. Immunologic History: Reports: Other (See Below) Other Immunologic History: spleen enlarged 2006- Unknown cause? Other Oncologic History: sarcoidosis Dermatologic History: Reports: None - Infectious Disease History Infectious Disease History: Reports: Chicken Pox - Past Surgical History Head Surgeries/Procedures: Reports: None Cardiovascular Surgical History: Reports: None Respiratory Surgical History: Reports: Other (See Below) Other Respiratory Surgeries/Procedures: bronchoscopy GI Surgical History: Reports: EGD, Other (See Below) Other GI Surgeries/Procedures: splenectomy Male Surgical History: Reports: Lithotripsy (ESWL), Ureteral Stent, Other ( See Below) Other Male Surgeries/Procedures: cystoscopy Neurological Surgical History: Reports: None Musculoskeletal Surgical History: Reports: None Social & Family History - Family History Family Medical History: Noncontributory Respiratory: Reports: Other (See Below) Other Respiratory Family Hisory: father- resp failures, mrsa pneum, tracheostomy in place, : Reports: Other (See Below) Other Family History: father- endocrine disorders, Musculoskeletal: Reports: Other (See Below) Other Musculoskeletal Family History: father- quadaparesis (muscle weakness), peripheral neuropathy Neurological: Reports: Neuropathy, Peripheral, Other (See Below) Other Neurological Family History: father- menningitis, headaches, Psychiatric: Reports: Other (See Below) Other Psychiatric Family History: father- anxiety related to his failing health, Other Endocrine/Metabolic Family History: father- endocrine disorder Immunologic: Reports: Other (See Below) Other Immunologic Family History: father- metabolic, immunity disorders, MSSA septicemia - Caffeine Use Caffeine Use: Reports: Coffee Caffeine Use Comment: Patient states he drinks caffeine on rare occasion. ED ROS GENERAL - Review of Systems Review Of Systems: See Below Constitutional: Reports: No Symptoms HEENT: Reports: No Symptoms Respiratory: Reports: No Symptoms Cardiovascular: Reports: No Symptoms Endocrine: Reports: No Symptoms GI/Abdominal: Reports: Nausea, Vomiting : Reports: No Symptoms Musculoskeletal: Reports: No Symptoms Skin: Reports: No Symptoms Neurological: Reports: No Symptoms ED EXAM, SKIN/RASH Exam: See Below Exam Limited By: No Limitations General Appearance: Alert, No Apparent Distress Ears: Normal External Exam, Normal Canal Nose: Normal Inspection, Normal Mucosa Throat/Mouth: Normal Inspection, Normal Lips, Normal Teeth Head: Atraumatic, Normocephalic Neck: Normal Inspection Respiratory/Chest: No Respiratory Distress, Lungs Clear, Normal Breath Sounds Cardiovascular: Normal Peripheral Pulses, Regular Rate, Rhythm GI/Abdominal: Normal Bowel Sounds, Soft, Non-Tender, No Organomegaly Back Exam: Normal Inspection, Full Range of Motion Extremities: Normal Inspection, Normal Range of Motion Course - Orders/Labs/Meds Meds: Medications Discontinued Medications Generic Name Dose Route Start Last Admin Trade Name Rosa M PRN Reason Stop Dose Admin Acetaminophen 1,000 mg 11/30/19 12:59 Tylenol Extra Strength PO 11/30/19 13:00 ONETIME ONE Ondansetron HCl 4 mg 11/30/19 12:59 Zofran Odt PO 11/30/19 13:00 ONETIME ONE Tramadol HCl 100 mg 11/30/19 12:59 Ultram PO 11/30/19 13:00 ONETIME ONE Departure - Departure Time of Disposition: 13:00 Disposition: Home, Self-Care 01 Condition: Good Clinical Impression: Nausea and vomiting - Discharge Information Prescriptions: Ondansetron [Zofran ODT] 4 mg PO Q4H PRN #10 tab.dis PRN Reason: Nausea Instructions: Viral Gastroenteritis, Adult, [id number] Referrals: Hermelindo Mathews MD [Primary Care Provider] - Forms: ED Department Discharge Additional Instructions: bland diet increase oral fluids zofran ODT 4 mg every 4 hours as needed for nausea tylenol 1000 mg every 8 hours as needed for pain follow up as needed Sepsis Event Note - Focused Exam Date Exam was Performed: 11/30/19 Time Exam was Performed: 13:20
[2019-11-30] MEDS: traMADol 50 MG Tab PO ONE ×2 (13:23→15:24)
[2019-11-30] MEDS: Acetaminophen 500 MG Tab PO ONE ×2 (13:23→15:24)
[2019-11-30 16:20] VITALS: BP 117/81; PULSE 120
== END 2019-11-30 14:10 | disposition home or self-care (01) ==
LOC: FB.ED 12:33
DX: R11.2 Nausea with vomiting, unspecified (principal); I11.0 Hypertensive heart disease with heart failure; I50.9 Heart failure, unspecified; K21.9 Gastro-esophageal reflux disease without esophagitis; F41.9 Anxiety disorder, unspecified; F32.9 Major depressive disorder, single episode, unspecified; Z79.899 Other long term (current) drug therapy
CPT/HCPCS: 99283; A9270

== ENCOUNTER 2020-01-17 14:23 | Emergency (ER) | payer BC ==
--- NOTE | 2020-01-17 14:52 | EDM.PDOC ---
ED HPI GENERAL MEDICAL PROBLEM - General Chief Complaint: Head Injury Stated Complaint: HIT HEAT Time Seen by Provider: 01/17/20 14:52 Source of Information: Reports: Patient History Limitations: Reports: No Limitations - History of Present Illness INITIAL COMMENTS - FREE TEXT/NARRATIVE: 34-year-old male who was sent to the emergency department from his primary provider's office secondary to a fall with head injury last night what she felt was altered mental status in a gentleman who has a history of alcohol abuse. The patient reportedly had some blood tests performed which are not available for my review. Apparently they have been drawn but are nonurgent labs. The patient tells me that he was moving some blocks down a set of stairs with a friend outside last night at around 6 PM and slipped and fell striking the back of his head against the stairs. He reports that there was no loss of consciousness but he was dazed. He denied any pain to me at present but he told nursing staff that he was having 3/10 level of pain. He tells me that he has no pain and would rated his pain as a 0/10. He denies any headache. He denies any chest pain. He has had no nausea or vomiting. He denies any alcohol use today. He does report some posterior neck soreness and tightness but he would still not relate this as a pain. He seems awake, alert and appropriate to be in response to my questions appropriately although he is somewhat evasive about his alcohol use. There are no other associated signs or symptoms. There are no other modifying factors. Onset: Other (Yesterday evening at 6 PM) Duration: Resolved Prior to Arrival Location: Reports: Head, Neck Quality: Reports: Other (He denies any pain at present.) Improves with: Reports: None Worsens with: Reports: None Context: Reports: Trauma (As above) Associated Symptoms: Reports: No Other Symptoms Treatments BOTTLE INSPECTOR: Reports: Other (see below) (Nothing) Posterior Head Pain Score (Numeric/FACES): 3 - Related Data Allergies Allergy/AdvReac Type Severity Reaction Status Date / Time No Known Allergies Allergy Verified 11/30/19 13:11 Home Meds: Home Meds Metoprolol Succinate [Toprol Xl] 50 mg PO DAILY 04/16/19 [History] Pantoprazole Sodium [Protonix] 40 mg PO DAILY #90 06/23/19 [Rx] Ferrous Gluconate [Iron] 240 mg PO DAILY 07/15/19 [History] Sucralfate [Carafate] 1 gm PO QID 07/15/19 [History] Past Medical History Cardiovascular History: Reports: Heart Failure, Hypertension Other Cardiovascular History: Non-ischemic cardiomyopathy. Respiratory History: Reports: Other (See Below) Other Respiratory History: pulmonary sarcoidosis Gastrointestinal History: Reports: GERD, PUD Other Gastrointestinal History: bleeding ulcer Genitourinary History: Reports: Renal Calculus Musculoskeletal History: Reports: Arthritis, Fracture Other Musculoskeletal History: hx fx L fx ribs, L gt toe, occasional tremors Neurological History: Reports: Concussion, Seizure Other Neuro History: History of tremors. Psychiatric History: Reports: Addiction (Alcohol abuse), Anxiety, Depression Hematologic History: Reports: Anemia, Blood Transfusion(s) Other Hematologic History: Spleenectomy, unknown etiology. Immunologic History: Reports: Other (See Below) Other Immunologic History: spleen enlarged 2006- Unknown cause? Other Oncologic History: sarcoidosis - Infectious Disease History Infectious Disease History: Reports: Chicken Pox - Past Surgical History Respiratory Surgical History: Reports: Other (See Below) Other Respiratory Surgeries/Procedures: bronchoscopy GI Surgical History: Reports: EGD, Other (See Below) Other GI Surgeries/Procedures: splenectomy Male Surgical History: Reports: Lithotripsy (ESWL), Ureteral Stent, Other ( See Below) Other Male Surgeries/Procedures: cystoscopy Social & Family History - Family History Respiratory: Reports: Other (See Below) Other Respiratory Family Hisory: father- resp failures, mrsa pneum, tracheostomy in place, : Reports: Other (See Below) Other Family History: father- endocrine disorders, Musculoskeletal: Reports: Other (See Below) Other Musculoskeletal Family History: father- quadaparesis (muscle weakness), peripheral neuropathy Neurological: Reports: Neuropathy, Peripheral, Other (See Below) Other Neurological Family History: father- menningitis, headaches, Psychiatric: Reports: Other (See Below) Other Psychiatric Family History: father- anxiety related to his failing health, Other Endocrine/Metabolic Family History: father- endocrine disorder Immunologic: Reports: Other (See Below) Other Immunologic Family History: father- metabolic, immunity disorders, MSSA septicemia - Tobacco Use Smoking Status *Q: Never Smoker - Caffeine Use Caffeine Use: Reports: None Caffeine Use Comment: Patient states he drinks caffeine on rare occasion. - Alcohol Use Alcohol Use History: Yes Days Per Week of Alcohol Use: 3 Number of Drinks Per Day: 3 Total Drinks Per Week: 9 Alcohol Use in Last Twelve Months: Yes Alcohol Use Comment: Patient admits to me that he has been drinking heavily for the past month but has had no alcohol over the past 24 hours. - Recreational Drug Use Recreational Drug Use: No - Living Situation & Occupation Social History Comment: He drove himself to the emergency department. ED ROS GENERAL - Review of Systems Review Of Systems: See Below Constitutional: Reports: No Symptoms HEENT: Reports: No Symptoms Respiratory: Reports: No Symptoms Cardiovascular: Reports: No Symptoms Endocrine: Reports: No Symptoms GI/Abdominal: Reports: No Symptoms : Reports: Other (Dark urine). Denies: Dysuria, Flank Pain, Frequency, Pain Musculoskeletal: Reports: Neck Pain Skin: Reports: No Symptoms Neurological: Reports: Headache Hematologic/Lymphatic: Reports: Anemia Immunologic: Reports: No Symptoms ED EXAM, HEAD INJURY - Physical Exam Exam: See Below Exam Limited By: No Limitations General Appearance: Alert, WD/WN, No Apparent Distress Head: Scalp Swelling (Occipital area), Other (No crepitus or bony deformity.). No: Scalp Lacerations Nexus Criteria: No: Posterior, Midline Cervical Tenderness, Evidence of Intoxication, Altered Level of Consciousness, Focal Neurological Deficit, Painful Distraction Injuries Eyes: Bilateral Eye: EOMI, PERRL, Other (Icteric sclera) Ears: Normal External Exam, Hearing Grossly Normal Nose: Normal Inspection, Normal Mucousa, No Blood Throat/Mouth: Normal Inspection, Normal Oropharynx, Normal Voice, No Airway Compromise Neck: Normal Alignment, Painful Range of Motion (Mild), Tenderness (Posteriorly) , Tender Midline. No: Paraspinous Muscle Tender Respiratory: No Respiratory Distress, Lungs Clear, Normal Breath Sounds, No Accessory Muscle Use, Chest Non-Tender Cardiovascular: Normal Peripheral Pulses, Regular Rate, Rhythm, No Murmur GI/Abdominal Exam: Normal Bowel Sounds, Soft, Non-Tender, No Mass Back Exam: Normal Inspection, Full Range of Motion Extremities: Normal Inspection, Normal Range of Motion, No Pedal Edema, Normal Capillary Refill Neurologic: director of marketing communications II-XII nml As Tested, No Motor/Sensory Deficits, Alert, Normal Mood/Affect, Oriented x 3 Skin: Warm/Dry, Jaundice - Ransom Coma Score Best Eye Response (Ransom): (4) Open Spontaneously Best Verbal Response (Hillary): (5) Oriented Best Motor Response (Ransom): (6) Obeys Commands Ransom Total: 15 Course - Vital Signs Last Recorded V/S: Last Vital Signs Temp 36.6 C 01/17/20 17:12 Pulse 78 01/17/20 17:12 Resp 18 01/17/20 17:12 BP 124/80 01/17/20 17:12 Pulse Ox 100 01/17/20 17:12 - Orders/Labs/Meds Labs: Laboratory Tests 01/17/20 01/17/20 01/17/20 Range/Units 14:45 14:45 14:45 WBC 8.2 (4.5-12.0) X10-3/uL RBC 4.54 (4.30-5.75) x10(6)uL Hgb 16.2 (13.5-17.8) g/dL Hct 47.4 (30.0-51.3) % MCV 104.3 H (80-96) fL MCH 35.7 H (27.7-33.6) pg MCHC 34.2 (32.2-35.4) g/dL RDW 14.1 (11.5-15.5) % Plt Count 119 L (125-369) X10(3)uL MPV 9.5 (7.4-10.4) fL Neut % (Auto) 75.2 (46-82) % Lymph % (Auto) 15.7 (13-37) % [place] % (Auto) 8.6 (4-12) % Eos % (Auto) 0 L (1.0-5.0) % Baso % (Auto) 0 (0-2) % Neut # (Auto) 6.2 (1.6-8.3) # Lymph # (Auto) 1.3 (0.6-5.0) # [place]uel # (Auto) 0.7 (0.0-1.3) # Eos # (Auto) 0.0 (0.0-0.8) # Baso # (Auto) 0.0 (0.0-0.2) # PT (9.0-11.1) sec INR (1.00-1.24) APTT (24.4-33.2) SECONDS Sodium 132 L (135-145) mmol/L Potassium 3.5 (3.5-5.3) mmol/L Chloride 92 L D (100-110) mmol/L Carbon Dioxide 29 (21-32) mmol/L BUN 9 (7-18) mg/dL Creatinine 1.3 (0.70-1.30) mg/dL Est Cr Clr Drug Dosing 78.19 mL/min Estimated GFR (MDRD) > 60 (>60) BUN/Creatinine Ratio 6.9 L (9-20) Glucose 92 (80-116) mg/dL Calcium 8.9 (8.6-10.2) mg/dL Total Bilirubin 8.7 H (0.1-1.3) mg/dL AST 333 H* D (5-25) IU/L ALT 90 H D (12-36) U/L Alkaline Phosphatase 381 H (56-112) IU/L Total Protein 7.9 (6.0-8.0) g/dL Albumin 3.4 L (3.5-5.2) g/dL Globulin 4.5 g/dL Albumin/Globulin Ratio 0.8 Urine Color (YELLOW) Urine Appearance (CLEAR) Urine pH (5.0-6.5) Ur Specific [place] (1.010-1.025) Urine Protein (NEGATIVE) mg/dL Urine Glucose (UA) (NORMAL) mg/dL Urine Ketones (NEGATIVE) mg/dL Urine Occult Blood (NEGATIVE) Urine Nitrite (NEGATIVE) Urine Bilirubin (NEGATIVE) Urine Urobilinogen (NEGATIVE) mg/dL Ur Leukocyte Esterase (NEGATIVE) Urine RBC (0-5) Urine WBC (0-5) Ur Squamous Epith Cells (NS,R,O) Amorphous Sediment Urine Bacteria (NS) Urine Mucus (NS) Urine Opiates Screen (NEGATIVE) Ur Oxycodone Screen (NEGATIVE) Ur Propoxyphene Screen (NEGATIVE) Ur Barbituates Screen (NEGATIVE) Ur Tricyclics Screen (NEGATIVE) Ur Phencyclidine Scrn (NEGATIVE) Ur Amphetamine Screen (NEGATIVE) Urine MDMA Screen (NEGATIVE) U Benzodiazepines Scrn (NEGATIVE) U Cocaine Metab Screen (NEGATIVE) U Marijuana (THC) Screen (NEGATIVE) Ethyl Alcohol < 0.03 (<0.03) % 01/17/20 01/17/20 01/17/20 Range/Units 14:45 15:16 15:16 WBC (4.5-12.0) X10-3/uL RBC (4.30-5.75) x10(6)uL Hgb (13.5-17.8) g/dL Hct (30.0-51.3) % MCV (80-96) fL MCH (27.7-33.6) pg MCHC (32.2-35.4) g/dL RDW (11.5-15.5) % Plt Count (125-369) X10(3)uL MPV (7.4-10.4) fL Neut % (Auto) (46-82) % Lymph % (Auto) (13-37) % [place] % (Auto) (4-12) % Eos % (Auto) (1.0-5.0) % Baso % (Auto) (0-2) % Neut # (Auto) (1.6-8.3) # Lymph # (Auto) (0.6-5.0) # Deuel # (Auto) (0.0-1.3) # Eos # (Auto) (0.0-0.8) # Baso # (Auto) (0.0-0.2) # PT 14.4 H (9.0-11.1) sec INR 1.36 H (1.00-1.24) APTT 26.3 (24.4-33.2) SECONDS Sodium (135-145) mmol/L Potassium (3.5-5.3) mmol/L Chloride (100-110) mmol/L Carbon Dioxide (21-32) mmol/L BUN (7-18) mg/dL Creatinine (0.70-1.30) mg/dL Est Cr Clr Drug Dosing mL/min Estimated GFR (MDRD) (>60) BUN/Creatinine Ratio (9-20) Glucose (80-116) mg/dL Calcium (8.6-10.2) mg/dL Total Bilirubin (0.1-1.3) mg/dL AST (5-25) IU/L ALT (12-36) U/L Alkaline Phosphatase (56-112) IU/L Total Protein (6.0-8.0) g/dL Albumin (3.5-5.2) g/dL Globulin g/dL Albumin/Globulin Ratio Urine Color [place] (YELLOW) Urine Appearance Clear (CLEAR) Urine pH 5.0 (5.0-6.5) Ur Specific [place] 1.020 (1.010-1.025) Urine Protein 30 H (NEGATIVE) mg/dL Urine Glucose (UA) Normal (NORMAL) mg/dL Urine Ketones Negative (NEGATIVE) mg/dL Urine Occult Blood Negative (NEGATIVE) Urine Nitrite Unable to report (NEGATIVE) Urine Bilirubin Moderate H (NEGATIVE) Urine Urobilinogen >=12 H (NEGATIVE) mg/dL Ur Leukocyte Esterase Negative (NEGATIVE) Urine RBC 0-5 (0-5) Urine WBC 0-5 (0-5) Ur Squamous Epith Cells Few H (NS,R,O) Amorphous Sediment Few Urine Bacteria Rare H (NS) Urine Mucus Moderate H (NS) Urine Opiates Screen Negative (NEGATIVE) Ur Oxycodone Screen Negative (NEGATIVE) Ur Propoxyphene Screen Negative (NEGATIVE) Ur Barbituates Screen Negative (NEGATIVE) Ur Tricyclics Screen Negative (NEGATIVE) Ur Phencyclidine Scrn Negative (NEGATIVE) Ur Amphetamine Screen Negative (NEGATIVE) Urine MDMA Screen Negative (NEGATIVE) U Benzodiazepines Scrn Negative (NEGATIVE) U Cocaine Metab Screen Negative (NEGATIVE) U Marijuana (THC) Screen Negative (NEGATIVE) Ethyl Alcohol (<0.03) % - Radiology Interpretation Free Text/Narrative:: CT scan of head showed no acute pathology per the radiologist. CT scan of cervical spine showed degenerative changes but no fracture or malalignment per the radiologist. - Re-Assessments/Exams Free Text/Narrative Re-Assessment/Exam: 01/17/20 17:05: The patient is vitally stable. Blood tests are consistent with alcoholic liver disease elevated bilirubin, thrombocytopenia, slightly prolonged INR and AST and ALT abnormalities. CT scans of his head and neck were negative. His urine tox screen and his alcohol were negative. He tells me that he had been drinking fairly heavily for the past month but has not had any alcohol for the past 24 hours. I have strongly advised the patient to I'll call abuse counseling and to refrain from drinking any further alcohol. He will need to follow-up with his primary provider, Luly Bo, for reassessment of his liver tests and platelets. He is stable for discharge at this point. Departure - Departure Time of Disposition: 15:15 Disposition: Home, Self-Care 01 Condition: Good Clinical Impression: Stable, Alcohol abuse, Alcoholic liver disease, Thrombocytopenia Head contusion Qualifiers: Encounter type: initial encounter Contusion of head detail: scalp Qualified Code(s): S00.03XA - Contusion of scalp, initial encounter Fall down stairs Qualifiers: Encounter type: initial encounter Qualified Code(s): W10.8XXA - Fall (on) (from ) other stairs and steps, initial encounter - Discharge Information Instructions: Alcoholic Liver Disease, [id number], Alcohol Use Disorder, Binge-Drinking Information, Adult, Facial or Scalp Contusion, [id number] Referrals: Hermelindo Mathews MD [Primary Care Provider] - Forms: ED Department Discharge Additional Instructions: The CT scans of your head and neck showed no acute problem. Your blood tests show evidence of damage to your liver and to your blood producing cells from your alcohol abuse. I strongly advise you to stop drinking alcohol and to never drink alcohol again. I also advise you to seek alcohol abuse counseling and treatment. Drink plenty of fluids. Follow-up with primary provider next week for recheck of your blood tests. Sepsis Event Note - Evaluation Sepsis Screening Result: No Definite Risk - Focused Exam Vital Signs: Vital Signs Temp Pulse Resp BP Pulse Ox 01/17/20 17:12 36.6 C 78 18 124/80 100 01/17/20 14:37 36.5 C 74 16 121/81 99 Date Exam was Performed: 01/17/20 Time Exam was Performed: 18:23
[2020-01-17 17:13] VITALS: BP 124/80; PULSE 78
--- NOTE | 2020-01-17 18:00 | CT ---
INDICATION: Head pain, status post fall, hitting back of head. CT HEAD WITHOUT CONTRAST: Spiral 3.75 mm axial sections were obtained through the brain without contrast 02/06/20 and compared with 04/16/19. Total exam DLP was 1296.53 mGy-cm. No shift of midline structures was identified. The ventricles are somewhat asymmetrical as on the previous study, likely a normal variant. Some areas of decreased density in the white matter may represent prominent sulci. No definite abnormal areas of density could be identified - no bleeding site or hematoma was seen. No cranial fracture site was identified. Paranasal sinuses and mastoid air cells are well aerated. The orbits appear to be intact. IMPRESSION: Essentially normal CT brain. No acute intracranial abnormality suggested. MTDD
--- NOTE | 2020-01-17 18:06 | CT ---
INDICATION: Neck pain after a fall, striking back of head. CT CERVICAL SPINE: Spiral 2.5 mm axial sections were obtained through the cervical spine with sagittal and coronal reconstructions 01/17/20 - no comparisons. Total exam DLP was 434.80 mGy-cm. The atlas and the axis appear to be intact including the odontoid process. There are some mild hypertrophic changes noted at the uncinate joints, most prominent and more moderate in appearance on the right at C5-6. There is also noted narrowing of the disc space at C5-6 with posterolateral hypertrophic spurring only slightly narrowing the neural foramina at that level. Vertebral body and disc heights otherwise were fairly well maintained. A definite fracture or dislocation was not identified. There is some straightening of normal cervical lordosis of questionable significance. Prevertebral spaces and bone density appear to be normal. Visualized apical lung appeared normal. IMPRESSION: 1. No acute fracture or dislocation. 2. Degenerative changes and disc disease C5-6. 3. Slight straightening of questionable significance. Report was called to Dr. Elizondo 1654 hours. [facility] [place] [facility]
== END 2020-01-17 17:25 | disposition home or self-care (01) ==
LOC: FB.ED 14:23
DX: S00.03XA Contusion of scalp, initial encounter (principal); F10.10 Alcohol abuse, uncomplicated; K70.9 Alcoholic liver disease, unspecified; I11.0 Hypertensive heart disease with heart failure; I50.9 Heart failure, unspecified; D69.6 Thrombocytopenia, unspecified; I10 Essential (primary) hypertension; K21.9 Gastro-esophageal reflux disease without esophagitis; Z79.899 Other long term (current) drug therapy; W10.8XXA Fall (on) (from) other stairs and steps, initial encounter
CPT/HCPCS: 36415; 70450; 72125; 80053; 80305-QW; 80307; 81001; 85025; 85610; 85730; 99284-25